=== PATIENT | female | born 1970 | race Caucasian/White ===

== ENCOUNTER 2016-09-30 21:38 | Inpatient (IN) | payer OTHER, MEDICAID ==
[~2016-09-30] VITALS: Ht 154.3 cm; Wt 166.1 kg
[2016-09-30 21:41] VITALS: BP 151/73; PULSE 85; RESP 18; O2SAT 93
--- NOTE | 2016-09-30 23:01 | ED.REPORT ---
HPI-Rash / Abscess Date of Service Sep 30, 2016 ED Provider: Celio Barboza MD The pt is a 45 y/o female w/ a hx of HTN and diabetes presenting to the ED complaining of L leg pain due to cellulitis. There is swelling, redness, and itching which all began in late July. They are also experiencing severe SOB w/ exertion and is unable to sleep supine because they can't breathe. She also describes becoming lightheaded w/ exertion. They report that they were on Bactrim and Keflex for the cellulitis but has not noticed any improvement. The pt was told to get tested for MRSA. They also describe losing 65 pounds of water weight recently while on Lasix and their calves being "4 times" bigger in the past. The pt was born a female but identifies as a male. Nursing Notes Stated Complaint: LEFT LEG CELLULITIS Chief Complaint: Skin Rash/Abscess Nursing Notes Reviewed: Yes Allergies: Coded Allergies: azithromycin (Verified Allergy, Intermediate, emesis, 09/30/16) haloperidol (Verified Allergy, Intermediate, confusion, 09/30/16) General Time Seen by MD: 23:00 Chief Complaint Tender/swollen area (L leg) Hx Obtained From: Patient Arrived By: Walk-in Onset Occurred: More than a week ago... (2 months) Symptom Duration: Since onset Recent Healthcare: No recent hospitalization, Recent doctor visit Similar Sx Previous: Yes Past Medical History Past Medical History HTN Bilat lower extremity cellulitis Diabetes Past Surgical History None reported Social History None reported Other Social History: Good social support Ambulatory Status Independent Review of Systems LLE erythema Respiratory: Reports: Shortness of breath (w/ exertion and while laying supine ) Musculoskeletal: Reports: Extremity pain (L leg), Extremity swelling (L leg) Skin: Reports Itching (L leg) Complete sys rev & neg: except as marked. Neurologic: Reports: Lightheaded (w/ exertion ) Physical Exam Initial Vital Signs Vital Signs (First) Date Time Temp Pulse Resp B/P Pulse Ox O2 Delivery O2 Flow Rate FiO2 09/30/16 21:41 36.7 85 18 151/73 93 Room Air Initial VS: Reviewed, Vital signs normal General/Constitutional: Awake, Alert Appearance / Presentation: Positive: Obese, morbidly Skin: Warm, Dry Lower extremity blistering and weeping, L worse than R Respiratory / Chest: Breath sounds NL Decreased air movement bilaterally w/ no focal changes Mild to moderate SOB Lungs are clear Cardiovascular: Heart rate NL, Regular rhythm, Heart sounds NL Bilat lower extremity edema Neurologic: Oriented X3, Speech NL Neck: Atraumatic, Supple, Full range of motion Abdomen: Atraumatic, Soft, Non-tender Psychiatric: Affect NL, Mood NL Interpretation & Diagnostics Lab Results Interpretation Result Diagram: 10/01/16 0010 10/01/16 0010 Test 09/30/16 23:09 10/01/16 00:10 Hold Purple Top Tube Received (Received) Hold Blue Top Tube Received (Received) Hold [place] Top Tube Received (Received) Hold Pand[place] Top Tube Received (Received) White Blood Count 7.4th/mm3 (3.8-10.1) Red Blood Count 5.12mil/mm3 (3.90-5.20) Hemoglobin 14.1g/dL (12.0-15.6) Hematocrit 45.1% (35.0-46.0) Mean Corpuscular Volume 88.1fL (81-100) Mean Corpuscular Hemoglobin 27.5pg (27.0-35.0) Mean Corpuscular Hemoglobin Concent 31.3% (32.0-37.0) Red Cell Distribution Width 21.8% (12.3-15.4) Platelet Count 173bil/L (150-400) Neutrophils (%) (Auto) 72.2% (40-74) Lymphocytes (%) (Auto) 21.5% (14-46) Monocytes (%) (Auto) 6.1% (4-12) Eosinophils (%) (Auto) 0% (0-5) Basophils (%) (Auto) 0.1% (0-3) Prothrombin Time 10.4sec (8.1-12.5) Prothromb Time International Ratio 0.97ratio Sodium Level 136mEq/L (134-144) Potassium Level 4.7mEq/L (3.5-5.2) Chloride Level 96mEq/L (97-108) Carbon Dioxide Level 25mmol/L (18-29) Blood Urea Nitrogen 14mg/dL (6-24) Creatinine 1.16mg/dL (0.57-1.00) Estimat Glomerular Filtration Rate 73mL/min (>59) Glucose Level 247mg/dL (60-99) Lactic Acid Level 1.4mmol/L (0.4-2.0) Calcium Level 9.1mg/dL (8.5-10.1) Magnesium Level 2.1mg/dL (1.6-2.6) Total Bilirubin 0.6mg/dL (0.0-1.2) Aspartate Amino Transf (AST/SGOT) 37U/L (0-50) Alanine Aminotransferase (ALT/SGPT) 28U/L (0-32) Alkaline Phosphatase 76U/L (25-150) Troponin T 0.010ug/L (0.0-0.011) Pro-B-Type Natriuretic Peptide 73pg/mL (0-130) Total Protein 7.2g/dL (6.4-8.4) Albumin 3.8g/dL (3.4-5.0) Lab Results Interpretation: Elevated nonfasting glucose ECG Interpretation ECG Interpretation: Rate [address] elev, probable normal early repol pattern Time: 00:23 Interpreted by: ED physician X-Ray Chest Interpretation Chest Xray Interpretation: Poor inspiratory effort Quality diminished by body habitus Increased vascular markings/infiltrates consistent w/ CHF View: AP & lat Interpretation / Wet Read by: Wet read ED physician Re-Eval/Medical Decision Med Decision/Clinical Course 45-year-old who is failing outpatient treatment for lower extremity cellulitis ( Septra and Keflex). They have also been short of breath. Previous workup was done at [facility] for blood clots with a positive d-dimer, negative lower extremity ultrasound, and negative chest CT scan with PE protocol. There seems to be clinical evidence of fluid retention but the BNP is not elevated. Chest x -ray shows enlarged heart but is otherwise nonspecific, possibly with some cephalization of flow. IV antibiotic therapy was initiated with vancomycin and Zosyn after cultures. Case was discussed with Dr. Grant and the patient will be admitted to the hospitalist service. Please see inpatient chart for details. Source of Hx: Old records Re-Evaluation/Progress : Time of Eval: 02:29 Re-Evaluation/Progress Note: Pt rechecked. Informed pt of need for admission. Pt understands and agrees with plan for admission. All questions addressed. Consultation : Referral / Consult Name: Aram Grant MD Consulted With: Hospitalist Call Returned at: 02:44 Cloth Baler: Will see patient, Agrees with eval, Agrees with plan, Accepts admit Counseled Regarding: Diagnosis, Lab results, Need for admission Discharge & Departure Impression: Primary Impression: Bilateral lower leg cellulitis Additional Impressions: Dyspnea Dyspnea type: unspecified Qualified Code: R06.00 - Dyspnea, unspecified Failure of outpatient treatment Disposition: ADMITTED TO HOSPITAL Discharge Condition All VS Reviewed: Yes Condition: Stable Referrals: Solitario Pop Attestation Portions of this note were transcribed by Andres Romano. I, Dr. Barboza personally performed the history, physical exam and medical decision-making; I reviewed and confirmed the accuracy of the information in the transcribed note. Signed by : Errol Quinones, 10/01/16 and 0024. copies to: Solitario Pop Howard L MD Sep 30, 2016 23:01 Andres Romano Oct 01, 2016 00:19
[2016-10-01] VITALS (15 sets, daily range): BP systolic 138–179; BP diastolic 61–83; PULSE 70–85; RESP 18–28; O2SAT 87–96
[2016-10-01 00:14] LABS: BASOPHILS % (AUTO) 0.1 % (0-3); EOSINOPHILS % (AUTO) 0 % (0-5); MONOCYTES % (AUTO) 6.1 % (4-12); Mean Corpuscular Hemoglobin 27.5 pg (27.0-35.0); Mean Corpuscular Volume 88.1 fL (81-100); NEUTROPHILS % (AUTO) 72.2 % (40-74); Platelet Count 173 bil/L (150-400)
[2016-10-01 00:17] LABS: INR 0.97 ratio
[2016-10-01 00:38] LABS: TROPONIN T 0.01 ug/L (0.0-0.011)
[2016-10-01 00:42] LABS: Magnesium 2.1 mg/dL (1.6-2.6)
[2016-10-01] MEDS ORDERED: Vancomycin Dose per Pharmacist XX ONE (02:43)
[2016-10-01] MEDS ORDERED: Vancomycin Inj 2,250 MG in 0.9% Sodium Chloride 500 ML IV ONE (02:45)
[2016-10-01] MEDS ORDERED: Piperacillin-Tazo 3.375 Gm Inj 3.375 GM in Dextrose 5% Minibag Plus 50 ML IV ONE (02:50)
[2016-10-01] MEDS ORDERED: Alum-Mag Hydrox-Simeth 30 mL Suspension PO PRN (02:55)
[2016-10-01] MEDS ORDERED: Polyethylene Glycol (PEG) 17 Gm Powder PO PRN (02:55)
--- NOTE | 2016-10-01 04:23 | PCM.HPMED ---
Subjective Date of Service Oct 01, 2016 Primary Provider: Admitting Physician: Primary Care Physician: Casey Attending Physician: Chief Complaint: Bilateral lower extremity "cellulitis" History of Present Illness: Colby Yin is a 45-year-old man with past medical history significant for asthma, edema, hypothyroidism, diabetes mellitus non-insulin using, and morbid obesity who presents due to bilateral lower extremity cellulitis and increasing shortness of breath. Patient states that the symptoms began after an episode of anaphylaxis on August 07 when he ingested honey unknowingly at [employer]. He states ever since this time his immune system has been compromised. He was seen in [facility] and was diagnosed with bilateral cellulitis and placed on Bactrim and Keflex. He has been on these 2 medications for approximately 2 months with no improvement of his lower extremities. He has also been seen by [facility] and has had his lower extremities wrapped along with increasing amounts of Lasix currently on 80 mg a day. He states his legs at this time are the smallest they have been in over a year. He was not warned about the photosensitivity associated with Bactrim and subsequently burned his legs. He returned to [facility] last week and his shortness of breath was worked up with a CTA and lower extremity ultrasound to evaluate for possible PE or DVT. Per the patient these were both negative. His shortness of breath has not responded to his home inhalers and he feels short of breath with any activity. Patient notes associated orthopnea, paroxysmal nocturnal dyspnea, headache and nausea. He has never had a sleep study and last echocardiogram was over 5 years ago. He denies chest pain, dysuria, diarrhea, weight loss, fever, chills, or night sweats. 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 In the ED initial vitals were temperature 36.7, pulse 85, respiratory rate 18 and saturating 93% on room air, and blood pressure 151/73. Patient desaturated down to the 80% when getting out of bed and was placed on 3 L nasal cannula following this episode. Pertinent labs include a creatinine of 1.16 and glucose of 247. CBC was unremarkable and troponin was negative. Patient was started on vancomycin and Zosyn in the ED. Review of Systems: Comprehensive review of systems was conducted with the patient and found to be negative except as noted above in HPI. Allergies Coded Allergies: Honey Bee (Verified Allergy, Severe, Anaphylaxis, 10/01/16) "stop breathing,and quivering" honey (Verified Allergy, Severe, Anaphylaxis, 10/01/16) azithromycin (Verified Allergy, Intermediate, emesis, 09/30/16) haloperidol (Verified Allergy, Intermediate, confusion, 09/30/16) Uncoded Allergies: redwood tree (Allergy, Unknown, Hives, 10/01/16) Home Medications Albuterol 2 other inhalers but patient is unsure the names. Atorvastatin Levothyroxine Testosterone Trazodone Tramadol PMH Asthma Diabetes mellitus type II non-insulin using Hermaphrodite Lymphedema Hypothyroidism Surgical History Right knee arthroscopy Right elbow repair as a child Penectomy Family History Mother - at age 54 from [place], diabetes mellitus Father - diabetes mellitus, [place], black lung from coal mining Social History Hx Alcohol Use: No Hx Substance Use: No Hx Tobacco Use: Yes Smoking Status: Former Smoker (quit in February) Years of Smokin Living Arrangement: with Family with Friends/Roommate Exam Vital Signs Vital Sign - Last Date Time Temp Pulse Resp B/P Pulse Ox O2 Delivery O2 Flow Rate FiO2 10/01/16 03:53 36.4 75 26 143/61 95 Nasal Cannula 2 Exam General: Obese man in mild distress. HEENT: Normocephalic, atraumatic. External ears without defect. Pupils equal, round, and reactive to light and accommodation. Anicteric sclerae, moist conjunctivae, and no lid lag. Oropharynx free of erythema and cobble stoning with moist mucosa. Neck: Supple with full range of motion. JVD difficult to assess due to neck circumference but there appears to be none. Cardiovascular: Distant heart sounds. Regular rate and rhythm with no murmurs, rubs, or gallops appreciated Pulmonary: Clear to auscultation bilaterally with faint wheezes. Increased respiratory effort. Abdomen: Bowel tones present. Obese, soft, nontender, nondistended. Extremities: Right peripheral IV. Peripheral pulses including the radial and posterior tibialis 2 out of 4 equal bilaterally. Skin: Bilateral lower extremity lymphedema with overlying sunburn. There are large bullae present on the anterior and posterior legs left greater than right. Thickening of the skin secondary to chronic venous stasis. Neurological: Cranial nerves grossly intact. Normal muscle strength, tone, and bulk. No known gait impairment. Psychiatric: Normal mood and affect. Alert and oriented to person, place, and time. Lab and Diagnostics Result Diagram: 10/01/16910/01/169 12-lead ECG Normal sinus rhythm Assessment & Plan Colby Yin is a 45-year-old man with past medical history significant for asthma, edema, hypothyroidism, diabetes mellitus non-insulin using, and morbid obesity who presents due to bilateral lower extremity cellulitis and increasing shortness of breath. Acute hypoxic respiratory failure, present on admission, active. Etiology possibly asthma exacerbation versus CHF versus pneumonia. Likely combination of patient's underlying asthma and CHF as patient complains of orthopnea and PND. Although BNP was not elevated. - Patient desaturated down to the 80s when standing from a seated position and has continued to require 2-3 L by nasal cannula. - Patient is not on home oxygen. - Recent workup with negative CTA and lower extremity Doppler performed at [facility] less than 7 days ago. Will not repeat at this time due to impaired renal function. - CXR today of poor quality but heart appears large and there is no distinct consolidation noted. Repeat 2 view ordered. - Echocardiogram ordered for the morning. - Duonebs Q4HWA. - Patient does not appear infectious at this time so no antibiotics will be continued. Chronic bilateral lymphedema complicated by sun exposure, present on admission, active. - Patient has received 2 months of antibiotics with Bactrim and Keflex perspective bilateral cellulitis. While on Bactrim patient had significant sun exposure complicating the appearance of the lower extremities. - Vancomycin and Zosyn given in the ED. Patient does not appear infectious and therefore we will hold on further antibiotics. - Pro calcitonin ordered and pending. - MRSA screen pending. - Wound care consulted. Suspected acute kidney injury, present on admission, active. Etiology likely secondary to increased dose of Lasix and decreased by mouth intake. - BUN 14 and creatinine 1.16. Baseline creatinine unknown. - We will attempt to avoid nephrotoxic medications during this admission. - Repeat BMP in the morning. - Consider IV fluids following echocardiogram. Will encourage oral hydration at this time. Hypothyroidism, present on admission, active. - Restart home levothyroxine when dose is confirmed. Asthma, present on admission, chronic. - Continue home inhalers when they are confirmed. - Duonebs every 6 hours when necessary. Diabetes mellitus type II, present on admission, chronic. - Hemoglobin A1c pending. - Patient on no medications currently. - Low-dose correctional scale. PRN Medications - Acetaminophen as needed for mild pain/fever/headache - Bowel regimen as needed - Antiemetic as needed Patient is admitted under observation status with expected length of stay less than 2 midnights due to severity of presenting symptoms, risk of adverse event, and complexity of treatment plan. Pain Evaluation: Adequate Pain Control GI Prophylaxis: Not indicated VTE Prophylaxis: Sub-Q Heparin (Unfractionated) Resuscitation Status: CPR: Attempt Resuscitation Attending Statement The patient was seen and examined together with Dr. Mak on 10/01 and I agree with the history, exam and plan as outlined in the note above. NATALIA MAK DO Oct 01, 2016 04:23 Aram Grant MD Oct 01, 2016 06:51
[2016-10-01] MEDS: Ondansetron 2 mg/mL 2 mL Inj IVPUSH PRN (04:55)
[2016-10-01] MEDS: Heparin 5,000 Unit/mL Inj SUBQ SCH ×4 (04:56→23:43)
[2016-10-01] MEDS ORDERED: Glucose 40% Oral Gel 15 Gm Tube PO PRN (05:05)
--- NOTE | 2016-10-01 05:10 | NUR ---
Admission Note Pt admitted to [facility] from ER on stretcher at 0415, alert and orientedx3, c/o pain 10/10 at left leg, 7/10 at right leg, Tylenol given, Dr. Mak paged for stronger pain med. Very SOB with activities, desat to 70s with ambulation,SPO2 around 95% on O3 3l after resting in bed for a few minutes.Cough intermittently, occasional brown sputum per pt. Nausea, no vomitus, Zofran given, symptoms improved. BP147/67 HR83 RR24. Coarse lung sounds bilaterally, obese, decreased lung sounds bilaterally, Tele applied SR 78 per carpet technician. No murmur, HR regular. Abdomen soft, non tender, BT hypoactive. Generalized dark redness, nonpitting edema, pain, skin warm to touch at bilateral LEs, left worse than right, skin breakdown,no drainage noted, Wound culture from left LE and nasal MRSA sent.Redness at abdominal folds and groins, bilateral posterior upper thigh. Vanco running. Pt orient to call light. MARBLE MACHINE OPERATOR monitoring applied. Care ongoing.
[2016-10-01] MEDS: Albuterol-Ipratropium 3 mL Inhalation Solution NEB SCH ×5 (05:22→20:17)
--- NOTE | 2016-10-01 06:41 | NUR ---
Home meds list not done due to pt unable to remember them, pt states she will let vincent bring homes meds or list to the hospital today.
[2016-10-01 06:53] LABS: APPEARANCE,URINE CLOUDY (CLEAR,HAZY); COLOR,URINE YELLOW (YELLOW); OCCULT BLOOD,URINE TRACE (NEGATIVE); PH,URINE 5.5 (5.0-8.0); UROBILINOGEN,URINE NORMAL (NORMAL)
--- NOTE | 2016-10-01 07:47 | DRSVH ---
PROCEDURE: X-RAY CHEST ONE VIEW, PORTABLE ([id number]) INDICATIONS: dyspnea TECHNIQUE: One view of the chest was acquired. COMPARISON: None. FINDINGS: Surgical changes and devices: None. Lungs and pleura: No pleural effusions or pneumothorax. Lungs are clear. There is mild cephalization of pulmonary vascular suspicious for CHF. Mediastinum: Mediastinal contours appear normal. Heart size is enlarged. Bones and chest wall: No suspicious bony lesions. Overlying soft tissues appear unremarkable. IMPRESSION: 1. Mild cephalization of pulmonary vascular suspicious for CHF. 2. Cardiomegaly. Dictated by: Keri Urias MD, PhD on 10/01/2016 at 7:44 Approved by: Keri Urias MD, PhD on 10/01/2016 at 7:45
[2016-10-01] MEDS: Insulin LISPRO 300 Unit/3 mL Inj SUBQ SCH ×4 (08:08→22:00)
--- NOTE | 2016-10-01 14:02 | NUR ---
HTN B/p 179/67, HR 85, RR 24. Pt reports GREGORIO continues. MD aware. No new orders at this time. Family at bedside visiting with pt. Will continue to monitor.
--- NOTE | 2016-10-01 14:18 | DRSVH ---
PROCEDURE: X-RAY CHEST, TWO VIEWS ([id number]) INDICATIONS: SOB TECHNIQUE: 2 views of the chest were acquired. COMPARISON: [facility], CR, XR CHEST 1VW (PORTABLE), 09/30/2016, 23:50. None. FINDINGS: Surgical changes and devices: None. Lungs and pleura: No pleural effusions or pneumothorax. Interstitial prominence and cephalization of pulmonary vasculature with perihilar indistinctness compatible CHF. Mediastinum: Mediastinal contours are normal. Heart size is mildly enlarged. Bones and chest wall: No suspicious bony abnormalities. Soft tissues appear unremarkable. IMPRESSION: Findings suspicious for CHF. Dictated by: Keri Urias MD, PhD on 10/01/2016 at 14:15 Approved by: Keri Urias MD, PhD on 10/01/2016 at 14:16
--- NOTE | 2016-10-01 14:58 | NUR ---
Belongings Pt requesting secure belongings envelope from the [facility], family is at bedside and able to take belongings home. Envelope #[id number] retrieved sealed and intact from [facility] in ED. Call light in reach, will continue to monitor. Addendum: 10/01/16 at 1503 by ARELY CACERES RN Above envelope number incorrect, Correct number - [id number].
--- NOTE | 2016-10-01 15:03 | NUR ---
spiritual care: pt request visit attempt; pt in personal care, will plan to follow as needed.
[2016-10-01] MEDS ORDERED: SALM50DI INH (15:10)
[2016-10-01] MEDS ORDERED: ATOR80TA PO (15:10)
[2016-10-01] MEDS ORDERED: EPIN0.3P17 IJ (15:10)
[2016-10-01] MEDS ORDERED: LEVO300T5 PO (15:10)
[2016-10-01] MEDS ORDERED: ALBU2.5V4 INHALATION (15:10)
[2016-10-01] MEDS ORDERED: IBUP800T28 PO (15:10)
[2016-10-01] MEDS ORDERED: MONT10TA23 PO (15:10)
[2016-10-01] MEDS ORDERED: ALBU18HF INH (15:10)
[2016-10-01] MEDS ORDERED: LOPE2CAP PO (15:10)
[2016-10-01] MEDS ORDERED: FERR-83 PO (15:10)
[2016-10-01] MEDS ORDERED: OMEP40CA36 PO (15:10)
[2016-10-01] MEDS ORDERED: testosterone INJ (15:10)
[2016-10-01] MEDS ORDERED: MOME13HF2 IH (15:10)
[2016-10-01] MEDS ORDERED: FLUO20CA25 PO (15:10)
[2016-10-01] MEDS ORDERED: FURO40TA4 PO (15:10)
[2016-10-01] MEDS ORDERED: BENZ100C8 PO (15:10)
[2016-10-01] MEDS ORDERED: FEXO-106 PO (15:10)
[2016-10-01] MEDS ORDERED: ASPI-973 PO (15:10)
[2016-10-01] MEDS ORDERED: MULT-666 PO (15:10)
--- NOTE | 2016-10-01 15:13 | NUR ---
Social Work Note - Initial assessment Thai Yin is a 45 yr old admitted for Dyspnea, Leg cellulitis. EMR reviewed: Pt has MARK DAVID, his PCP is Dr Pop at [facility]. No DPOA - OPTICAL GLASS INSPECTOR provided paperwork. No VA or LTC insurance. Readmit score is not available. See attached CM initial assessment. OPTICAL GLASS INSPECTOR met with pt - introduced D/C planning and explained SW role. Pt lives with his SO in [place] and is independent at baseline. He uses a walker at times, has a shower chair. Pt states that he plans to d/c home tomorrow with family. He has good supports - states that they will help with medications and assistance at home if needed. OPTICAL GLASS INSPECTOR counseled on DPOA - provided paperwork. OPTICAL GLASS INSPECTOR provided D/C planning checklist and left number on white board. No other needs identified. Plan: Home with family in [place]. No needs identified. LG Pete Addendum: 10/01/16 at 1517 by EARL PORRAS SS Amended: Links added.
[2016-10-01] MEDS ORDERED: Albuterol 2.5 mg/3 mL Inhalation Solution NEB PRN (16:00)
[2016-10-01] MEDS: Fluticasone-Salmeterol 100-50 Inhaler INHALATION SCH (20:08)
[2016-10-01] MEDS ORDERED: Salmeterol 50 mcg/Puff 28 Inhalation Diskus INHALATION SCH (20:30)
[2016-10-02] VITALS (10 sets, daily range): BP systolic 136–145; BP diastolic 61–72; PULSE 68–96; RESP 18–24; O2SAT 91–95
[2016-10-02 05:49] LABS: Mean Corpuscular Hemoglobin 27.4 pg (27.0-35.0); Mean Corpuscular Volume 86.4 fL (81-100)
--- NOTE | 2016-10-02 06:36 | NUR ---
BG/panic attacks/sleep BG was 209 before bed. RN was about to draw up 1 unit of insulin when pt pressed call button stating he is feeling shaky. Withheld insulin and provided pt with a snack. Pt continually waking up and stating he cannot breathe at night, maintaining o2 sats in high 90s as per CPOX. Upon awakening about 10-12 times pt has sweats and uses call button every couple of minutes so that "he has someone to talk to" and "to calm him down". States that his partner and him are for the very first time ever and that this is giving him very bad panic attacks. Pt requested Trazadone to sleep which was not very effective.
[2016-10-02] MEDS: Albuterol-Ipratropium 3 mL Inhalation Solution NEB SCH ×4 (07:23→20:20)
[2016-10-02] MEDS: Heparin 5,000 Unit/mL Inj SUBQ SCH ×2 (07:57→17:53)
[2016-10-02] MEDS: Insulin LISPRO 300 Unit/3 mL Inj SUBQ SCH ×2 (07:59→11:54)
[2016-10-02] MEDS: Fluticasone-Salmeterol 100-50 Inhaler INHALATION SCH ×2 (09:42→21:19)
[2016-10-02] MEDS: Pantoprazole 40 mg ER24 Tablet PO SCH (09:42)
[2016-10-02] MEDS: Insulin LISPRO Medium-Dose Scale SUBQ SCH ×3 (11:57→21:21)
--- NOTE | 2016-10-02 15:40 | PCM.PNMED ---
Subjective Date of Service Oct 02, 2016 Subjective Denies any new issues/complaints. Nursing noted patient to be desaturating to mid 80's with minimal movement. He says is not on home O2 but is wondering if he should be on home O2 because of frequent SOB at home as well. Exam Vital Signs Vital Sign - Last Date Time Temp Pulse Resp B/P Pulse Ox O2 Delivery O2 Flow Rate FiO2 10/02/16 14:40 36.6 75 22 144/62 91 Nasal Cannula 2.00 Intake and Output 10/01/16 10/01/16 10/02/16 Cumulative From/Thru 15:00 23:00 07:00 09/30/16 21:41 - 10/02/16 06:25 Intake Total 1410 ml 672 ml 2732 ml Output Total 300 ml 550 ml 851 ml Balance 1110 ml 122 ml 1881 ml Intake Oral 1410 ml 672 ml 2232 ml IV Total 500 ml Output Urine Total 300 ml 550 ml 850 ml Urine/Stool Mix 1 ml # Voids 1 2 # Bowel Movements 1 2 Exam General: Obese man in NAD HEENT: Normocephalic, atraumatic. Anicteric sclerae, moist conjunctivae, and no lid lag. Oropharynx free of erythema and cobble stoning with moist mucosa. Neck: Supple with full range of motion. Cardiovascular: Distant heart sounds. Regular rate and rhythm Pulmonary: Clear to auscultation bilaterally with faint wheezes. Increased respiratory effort. Abdomen: Bowel tones present. Obese, soft, nontender, nondistended. Extremities: Peripheral pulses including posterior tibialis 2 out of 4 equal bilaterally. Skin: Bilateral lower extremity lymphedema with overlying sunburn. There are large bullae present on the anterior and posterior legs left greater than right. Thickening of the skin consistent with chronic venous stasis. Neurological: Cranial nerves grossly intact. Normal muscle strength, tone, and bulk. Psychiatric: Normal mood and affect. Alert and oriented to person, place, and time. IVs and Medications Medications Reviewed: Medications were reviewed in detail Lab and Diagnostics Result Diagram: 10/02/16 0500 10/02/16 0500 12-lead ECG Normal sinus rhythm Assessment & Plan 45-year-old man with past medical history significant for asthma, edema, hypothyroidism, diabetes mellitus non-insulin using, and morbid obesity who presents with concern of bilateral lower extremity cellulitis and increasing shortness of breath. # Acute hypoxic respiratory failure, present on admission, active. - Unclear exact etiology at this time. Likely combination of patient's underlying asthma and CHF as patient complains of orthopnea and PND. Although BNP was not elevated. - Continues to desaturate down to the 80s when standing from a seated position and has continued to require 2-3 L by nasal cannula. - Patient is not on home oxygen. - Recent workup with negative CTA and lower extremity Doppler performed at [facility] about 7 days ago. Will not repeat at this time due to impaired renal function. - CXR "Findings suspicious for CHF" - Followup pending Echocardiogram - Duonebs Q4HWA. - Patient does not appear infectious at this time so no antibiotics will be continued. - Start IV Lasix - Followup I/O # Chronic bilateral lymphedema complicated by sun exposure, present on admission , active. - Patient has received 2 months of antibiotics with Bactrim and Keflex as outpatient for presumed bilateral cellulitis. - While on Bactrim patient had significant sun exposure complicating the appearance of the lower extremities. - Vancomycin and Zosyn given in the ED. Patient does not appear infectious and therefore we will hold on further antibiotics. - MRSA screen pending. - Wound care consulted. # Suspected acute kidney injury, present on admission, active. - Baseline creatinine unknown. - We will attempt to avoid nephrotoxic medications during this admission. - Repeat BMP in the morning. - Followup closely while starting IV Lasix # Hypothyroidism, present on admission, active. - Home levothyroxine # Asthma, present on admission, chronic. - Continue home inhalers - Duonebs every 6 hours when necessary. # Diabetes mellitus type II, present on admission, chronic. - Hemoglobin A1c pending. - Patient on no medications currently. - Low-dose correctional scale. # Reported history of being transgender. Prefers to be referred to as he even though his parents registered him as a she when he was borne. Dispo: 2-3 days pending improved respiratory status and echo findings. GI Prophylaxis: Not indicated VTE Prophylaxis: Sub-Q Heparin (Unfractionated) VTE Mechanical Devices: Venous Foot Pump Resuscitation Status: CPR: Attempt Resuscitation Marlo Martines Oct 02, 2016 15:40 Resuscitation Status: CPR: Attempt Resuscitation Marlo Martines Oct 02, 2016 15:40
--- NOTE | 2016-10-02 17:26 | NUR ---
spiritual care: pt request conversational visit. pt shared his medical progress, hopeful tone. Pt also reflected on personal qualities luna as they relate to his yarsanism sita--intent for prayer, spiritual growth, reliability in relationships and self care. Pt shared his recent ambivalence with hospital medications as he explained his need to balance ability to sleep with managing deep sleep panic or other ptsd affects. Pt expressive about support from SO and also his desire to care for her. pt had phone call that he wanted to take, spiritual care to follow as needed.
--- NOTE | 2016-10-02 18:29 | NUR ---
Activity/SOB Pt has been up, amb to BR and back with SBA. He does get extremely SOB, desat's into the mid-80's. Per pt, "this has been happening since I was born, nothing is going to change it." Pt states sometimes his 02 will drop as low as mid 70's with exertion. He denies any home 02. Enc to do slow, deep breaths to bring 02 levels up into the high 80's, low 90's. Pt remains on 2L via NC for comfort. One req for PRN analgesic this AM, nothing more throughout this shift. Bed in lowest, locked position and call light in reach.
[2016-10-02] MEDS: Furosemide 10 mg/mL 4 mL Inj IVPUSH SCH (21:20)
--- NOTE | 2016-10-02 23:53 | PROCED ---
[address] [address] PROCEDURE NOTE PATIENT: LANDY ACOSTA : 1970 MR#: [id number] ADMIT: 10/01/2016 JOB ID: [id number] DATE OF SERVICE: 10/02/2016 POSTOPERATIVE DIAGNOSIS(ES): PREOPERATIVE DIAGNOSIS(ES): SURGEON: PROCEDURE: SensiLase laser Doppler report INDICATION: Lymphedema. FINDINGS: Skin perfusion pressure from the right ankle medial was 69, right calf medial was 71. Left ankle medial was 76, left ankle lateral 49, left medial was 75. The skin perfusion pressures seen in this patient are adequate for wound healing from an arterial standpoint and this patient can sustain compressive therapy of normal amounts.
[2016-10-03] VITALS (10 sets, daily range): BP systolic 158–187; BP diastolic 63–81; PULSE 74–108; RESP 18–28; O2SAT 90–95
[2016-10-03] MEDS: Heparin 5,000 Unit/mL Inj SUBQ SCH ×3 (00:02→16:39)
[2016-10-03 06:11] LABS: BASOPHILS % (AUTO) 0 % (0-3); EOSINOPHILS % (AUTO) 0 % (0-5); Mean Corpuscular Hemoglobin 27.4 pg (27.0-35.0); Mean Corpuscular Volume 87.6 fL (81-100); NEUTROPHILS % (AUTO) 72.1 % (40-74); Platelet Count 156 bil/L (150-400)
--- NOTE | 2016-10-03 06:16 | NUR ---
O2 sats/pain: Pt was able to ambulate self to BR without O2, no SOB noted, tolerated well. Pt did use 2L O2 while in bed during the night. C/o leg pain x1, medication administered; requested Flexeril for muscle spasms, ordered and administered; effective. Pt slept off/on throughout the night, pleasant and cooperative with care.
[2016-10-03 07:03] LABS: Magnesium 1.9 mg/dL (1.6-2.6); Phosphorus 4.2 mg/dL (2.5-4.9)
--- NOTE | 2016-10-03 07:56 | DRSVH ---
[facility] [address] [place] [address] Echocardiogram Report Name: LANDY ACOTSA FStudy Date: 10/02/2016 Height: 61 in Hospital Exam Location: [facility] Weight: 366 lb Gender: Female BSA: 2.4 m2 : 1970 Age: 45 yrs BP: 136/72 mm Hg Reason For Study: SOB Ordering Physician: Zuleyka GatesistPerformed By: Berlin Draper Referring Physician: NATALIA DOUGLAS Interpretation Summary The study quality was technically difficult. A contrast injection of Definity was performed to improve assessment of LV function. The ejection fraction is estimated to be 60-65%. There is mild tricuspid regurgitation. The right ventricular systolic pressure is estimated at 46 mmHg assuming a right atrial pressure of 8 mm Hg. Procedure: A two-dimensional transthoracic echocardiogram with color flow and Doppler was performed. The study quality was technically difficult. A contrast injection of Definity was performed to improve assessment of LV function. There is no prior echocardiogram noted for this patient. The patient was in normal sinus rhythm during the exam. Left Ventricle: The left ventricle is grossly normal size. Left ventricular wall thickness is mildly increased. The ejection fraction is estimated to be 60-65%. There are no focal wall motion abnormalities. Right Ventricle: The right ventricle grossly appears normal in size with probable normal systolic function. Atria: The left atrium grossly appears normal in size. The right atrium grossly appears normal in size. There is no Doppler evidence for an atrial septal defect. Mitral Valve: The mitral valve is grossly normal. There is no mitral regurgitation noted. Aortic Valve: The aortic valve is not well visualized. The aortic valve mean gradient is 11 mmHg. The peak aortic velocity is 2.3 m/sec. No aortic regurgitation is present. Tricuspid Valve: The tricuspid valve is not well visualized, but is grossly normal. There is mild tricuspid regurgitation. The right ventricular systolic pressure is estimated at 46 mmHg assuming a right atrial pressure of 8 mm Hg. Pulmonic Valve: The pulmonic valve is not well seen, but is grossly normal. There is a trace or physiologic amount of pulmonic regurgitation. Great Vessels: The aortic root is normal size. The dimensions of the ascending aorta are normal. The pulmonary artery is not well visualized, but is probably normal size. The IVC is dilated (diameter is greater than 2.1 cm) yet it collapses greater than 50% with a sniff. This suggests a right atrial pressure of 8 mm Hg. Pericardium/ Pleura There is an anterior echo-free space consistent with a fat pad. There is no pleural effusion. MMode/2D Measurements & Calculations LVIDd: 4.9 cm IVC diam LVOT diam: 2.0 cm LV manrique. diameter/BSA LVIDs: 2.2 cm : 2.4 cm Ao root diam (cm/m^2): 2.0 FS: 54.8 % IVSd: 1.2 cm asc Aorta Diam LVPWd: 1.2 cm Ao Arch Diam (Prox Trans): 2.5 cm LV sys. diameter/BSA (cm/m^2): 0.91 Doppler Measurements & Calculations Ao V2 max MV E max hany MV E/A: 1.3 TR max hany : 228.5 cm/sec : 134.0 cm/sec Med Peak E' Hany : 307.3 cm/sec Ao max P.9 mmHg MV A max hany TR max PG Ao mean P.4 mmHg : 104.1 cm/sec E/E' med: 14.8 : 37.9 mmHg LVOT Max Hany Lat Peak E' Hany PA V2 max : 131.8 cm/sec : 121.8 cm/sec E/E' lat: 11.4 PA mean PG ABA(I,D): 2.0 cm E/e' average : 2.7 mmHg sev ratio: 0.66 MV dec time: 0.27 sec Ao V2 mean LV V1 max PG PA V2 mean : 159.8 cm/sec : 77.3 cm/sec Ao V2 VTI: 39.9 cmLV V1 VTI: 26.2 cmPA pr(Accel) : 51.6 mmHg ABA(V,D): 1.8 cm2 ABA indexed to BSA (cm^2/m^2): 0.82 Electronically signed by: Brent Woodard on Reading Physician:10/02/2016 12:10 PM
[2016-10-03] MEDS: Albuterol-Ipratropium 3 mL Inhalation Solution NEB SCH ×4 (08:35→21:34)
[2016-10-03] MEDS: Fluticasone-Salmeterol 100-50 Inhaler INHALATION SCH ×2 (09:24→20:22)
[2016-10-03] MEDS: Pantoprazole 40 mg ER24 Tablet PO SCH (09:25)
[2016-10-03] MEDS: Insulin LISPRO Medium-Dose Scale SUBQ SCH ×4 (09:28→22:09)
[2016-10-03] MEDS: Furosemide 10 mg/mL 4 mL Inj IVPUSH SCH ×2 (09:29→20:21)
[2016-10-03] MEDS: Ondansetron 2 mg/mL 2 mL Inj IVPUSH PRN ×2 (10:52→18:12)
--- NOTE | 2016-10-03 11:34 | NUR ---
Testosterone Pt req his testosterone injection. Verified with his home pharmacy that dose is 200mg/ml Q2 weeks. cookpaged with above. Addendum: 10/03/16 at 1304 by NIKITA TAVERAS RN ordered medication
--- NOTE | 2016-10-03 11:49 | NUR ---
Tobacco chew Pt noted to have chewing tobacco at bedside and using it. Pt educated re: tobacco policy/tobacco free policy. Pt became upset, stated it was need for his anxiety and if denied use, he would leave AMA. vegetable packer in room to provide more education, pt reports understanding although he doesn't agree and agreed to hand over can of tobacco which was locked up in drawer outside of room. Pt states he will stay for now.
--- NOTE | 2016-10-03 14:04 | PCM.PNMED ---
Subjective Date of Service Oct 03, 2016 Subjective Patient continues to improve on IV diuresis. Afebrile. Exam Vital Signs Vital Sign - Last Date Time Temp Pulse Resp B/P Pulse Ox O2 Delivery O2 Flow Rate FiO2 10/03/16 13:33 98 Nasal Cannula 4.00 108 10/03/16 13:00 18 93 10/03/16 10:15 36.4 185/63 Intake and Output 10/02/16 10/02/16 10/03/16 Cumulative From/Thru 15:00 23:00 07:00 09/30/16 21:41 - 10/03/16 06:20 Intake Total 1346 ml 400 ml 4478 ml Output Total 1500 ml 1050 ml 3401 ml Balance -154 ml -650 ml 1077 ml Intake Oral 1346 ml 400 ml 3978 ml IV Total 500 ml Output Urine Total 1500 ml 1050 ml 3400 ml Urine/Stool Mix 1 ml # Voids 2 # Bowel Movements 1 3 Exam General: Obese man in NAD HEENT: Normocephalic, atraumatic. Anicteric sclerae, moist conjunctivae, and no lid lag. Oropharynx free of erythema and cobble stoning with moist mucosa. Neck: Supple with full range of motion. Cardiovascular: Distant heart sounds. Regular rate and rhythm Pulmonary: Clear to auscultation bilaterally with faint wheezes. Increased respiratory effort. Abdomen: Bowel tones present. Obese, soft, nontender, nondistended. Extremities: Peripheral pulses including posterior tibialis 2 out of 4 equal bilaterally. Skin: Bilateral lower extremity lymphedema with overlying sunburn. There are large bullae present on the anterior and posterior legs left greater than right. Thickening of the skin consistent with chronic venous stasis. Neurological: Cranial nerves grossly intact. Normal muscle strength, tone, and bulk. Psychiatric: Normal mood and affect. Alert and oriented to person, place, and time. IVs and Medications Medications Reviewed: Medications were reviewed in detail Lab and Diagnostics Result Diagram: 10/03/1651910/03/16519 12-lead ECG Normal sinus rhythm Cardiac Echo Impressions nterpretation Summary The study quality was technically difficult. A contrast injection of Definity was performed to improve assessment of LV function. The ejection fraction is estimated to be 60-65%. There is mild tricuspid regurgitation. The right ventricular systolic pressure is estimated at 46 mmHg assuming a right atrial pressure of 8 mm Hg. Assessment & Plan 45-year-old man with past medical history significant for asthma, edema, hypothyroidism, diabetes mellitus non-insulin using, and morbid obesity who presents with concern of bilateral lower extremity cellulitis and increasing shortness of breath. # Acute hypoxic respiratory failure, present on admission, active. - Unclear exact etiology at this time. Likely combination of patient's underlying asthma and diastolic CHF as patient complains of orthopnea and PND. Although BNP was not elevated. - Continues to desaturate down to the 80s when standing from a seated position and has continued to require 2-3 L by nasal cannula. - Patient is not on home oxygen. - Recent workup with negative CTA and lower extremity Doppler performed at [facility] about 7 days ago. Will not repeat at this time due to impaired renal function. D-dimer 1.17 noted - CXR "Findings suspicious for CHF" - Echocardiogram preserved ejection fraction.Left ventricular wall thickness is mildly increased - Duonebs Q4HWA. - Patient does not appear infectious at this time so no antibiotics will be continued. - Continue IV Lasix 40 mg IV twice a day - Followup I/O -arrange home oxygen #Suspected diastolic heart failure -- Continue IV Lasix 40 mg IV twice a day - Followup I/O # Chronic bilateral lymphedema complicated by sun exposure, present on admission , active. - Patient has received 2 months of antibiotics with Bactrim and Keflex as outpatient for presumed bilateral cellulitis. - While on Bactrim patient had significant sun exposure complicating the appearance of the lower extremities. - Vancomycin and Zosyn given in the ED. Patient does not appear infectious and therefore we will hold on further antibiotics. - MRSA screen negative - Wound care consulted. # Diabetes mellitus type II, present on admission, chronic. Uncontrolled - Hemoglobin A1c 8.1 - Patient on no medications currently. - Low-dose correctional scale for now. We will discharge on oral agents # Suspected acute kidney injury, present on admission, improving - Baseline creatinine unknown. - We will attempt to avoid nephrotoxic medications during this admission. # Hypothyroidism, present on admission, active. - Home levothyroxine # Asthma, present on admission, chronic. - Continue home inhalers - Duonebs every 6 hours when necessary. # Reported history of being transgender. Prefers to be referred to as he even though his parents registered him as a she when he was borne. Dispo: 1-2 days pending improved respiratory status GI Prophylaxis: Not indicated VTE Prophylaxis: Sub-Q Heparin (Unfractionated) VTE Mechanical Devices: Venous Foot Pump Resuscitation Status: CPR: Attempt Resuscitation Coy Herbert MD Oct 03, 2016 14:04 Coy Herbert MD Oct 03, 2016 14:04
[2016-10-04] MEDS: Heparin 5,000 Unit/mL Inj SUBQ SCH ×2 (00:30→09:25)
[2016-10-04 05:20] VITALS: BP 180/93; PULSE 91; RESP 26; O2SAT 98
[2016-10-04 05:53] LABS: BASOPHILS % (AUTO) 0.2 % (0-3); EOSINOPHILS % (AUTO) 0 % (0-5); MONOCYTES % (AUTO) 6.9 % (4-12); Mean Corpuscular Hemoglobin 27.3 pg (27.0-35.0); Mean Corpuscular Volume 88.6 fL (81-100); NEUTROPHILS % (AUTO) 73.9 % (40-74); Platelet Count 169 bil/L (150-400)
[2016-10-04 05:56] VITALS: PULSE 80
[2016-10-04 07:30] VITALS: PULSE 80; RESP 18; O2SAT 97
[2016-10-04] MEDS: Albuterol-Ipratropium 3 mL Inhalation Solution NEB SCH ×2 (07:33→11:32)
[2016-10-04 08:00] VITALS: PULSE 81
[2016-10-04 08:32] VITALS: BP 150/75; PULSE 82; RESP 24; O2SAT 97
[2016-10-04] MEDS: Fluticasone-Salmeterol 100-50 Inhaler INHALATION SCH (09:16)
[2016-10-04] MEDS: Pantoprazole 40 mg ER24 Tablet PO SCH (09:18)
[2016-10-04] MEDS: Insulin LISPRO Medium-Dose Scale SUBQ SCH (09:21)
[2016-10-04] MEDS: Furosemide 10 mg/mL 4 mL Inj IVPUSH SCH (09:21)
[2016-10-04] MEDS: Ondansetron 2 mg/mL 2 mL Inj IVPUSH PRN (09:21)
--- NOTE | 2016-10-04 10:36 | PCM.DIMED ---
Discharge Instructions Date of Service Oct 04, 2016 Dates of Hospitalization Oct 01, 2016 at 04:12 Discharge Diagnosis Discharge Diagnosis # Acute hypoxic respiratory failure, present on admission, active. - Likely combination of patient's underlying asthma and diastolic CHF #Suspected diastolic heart failure # Chronic bilateral lymphedema complicated by sun exposure, present on admission , active. # Diabetes mellitus type II, present on admission, chronic. Uncontrolled # Suspected acute kidney injury, present on admission, improving # Hypothyroidism, present on admission, active. # Asthma, present on admission, chronic. # Reported history of being transgender. Diet Discharge Diet: Low fat, Low Sodium, Diabetic Activity Discharge Activity: Limited until seen by PCP Call your provider Call your provider for: Fever or Chills, Shortness of breath, Bleeding, Chest pain, Vomitting, Excessive diarrhea, Weakness (unilateral) Patient Instructions Patient Instructions You were hospitalized due to acute hypoxemic respiratory failure due to diastolic heart failure and asthma exacerbation. You have been treated with nebulizer treatment and diuretics/Lasix. Please continue Lasix 20 mg daily. Please continue nebulizers as prescribed. Your diabetes is uncontrolled. I have started you on metformin 500 mg by mouth twice a day. This may be increased to 1000 mg by mouth twice a day by PCP in few weeks if tolerated. I also started you on glyburide 2.5 mg mg twice daily. Please check your blood glucose 3 times a day and discus with PCP for further adjustment. Please check your BP daily. walker Prescribed for deconditioning and unstable gait. Follow-up Provider: [facility] Follow-up with PCP in: 1 week Coy Herbert MD Oct 04, 2016 10:36
[2016-10-04] MEDS ORDERED: NEBU-145 MC (10:39)
[2016-10-04] MEDS ORDERED: OXYC5TAB72 PO (10:39)
[2016-10-04] MEDS ORDERED: METF500T PO (10:54)
[2016-10-04] MEDS ORDERED: GLYB2.5T4 PO (10:54)
[2016-10-04] MEDS ORDERED: FLUO20CA25 PO (10:54)
[2016-10-04] MEDS ORDERED: BLOO-1504 MC (10:55)
[2016-10-04] MEDS ORDERED: WALK1EAC55 MC (10:56)
--- NOTE | 2016-10-04 11:08 | NUR ---
Social Work: Discharge / Multidisciplinary Rounds Data: Pt is on day 3 of hospitalization. EMR reviewed. Pt discussed in rounds, MD states pt likely to d/c today. D/C orders are in. Pt is capable of self care. No d/c planning needs anticipated at this time. GLOBAL PRESIDENT will continue to follow if needs arise. Assessment: Pt who is independent at baseline. Plan: Pt will d/c home via POV today. Pt is capable of self care. No d/c planning needs anticipated at this time. GLOBAL PRESIDENT will continue to follow if needs arise. ADARSH Roberts
[2016-10-04 11:30] VITALS: PULSE 82; RESP 22; O2SAT 97
--- NOTE | 2016-10-04 13:11 | NUR ---
DISCHARGE Pt dc'd home at 1300, off unit in w/c accompanied by CONTRACT ACCOUNTANT and pt's . Pt A&Ox4, denied any pain and in no apparent distress. IV dc'd intact and all belongings returned including cell phone/painter and body work. All instructions re: medications, prescriptions, diet, activity and follow up reviewed extensively with pt and pt's , who report understanding. Pt left with Amaury Jones at 2L.
--- NOTE | 2016-10-04 13:41 | NUR ---
Called the residency clinic to schedule a PCP per EDGE BASTER, but the patient was put on a wait list. He is scheduled to have a follow up with Dr. Carlin at 9:10 am on the 09 of October. Updated EDGE BASTER
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
--- NOTE | 2016-10-08 14:45 | NUR ---
Faxed clinicals and facesheet to Lizette @ [facility] [phone], both discharge instructions and summary indicate walker is needed for discharge. [phone] Updated DEAN
== END 2016-10-04 13:02 | disposition home or self-care (01) | DRG 189 ==
LOC: SED 21:38 → MPC 10-01 04:12 → INTOOBSV 10-01 04:12 → OBSVTOIN 10-01 04:12
PROVIDERS: ADMIT Hospitalist; ATTEND Internal Medicine
DX: J96.01 Acute respiratory failure with hypoxia (principal); N17.9 Acute kidney failure, unspecified; I50.30 Unspecified diastolic (congestive) heart failure; L03.115 Cellulitis of right lower limb; E11.65 Type 2 diabetes mellitus with hyperglycemia; J45.901 Unspecified asthma with (acute) exacerbation; L03.116 Cellulitis of left lower limb; E66.01 Morbid (severe) obesity due to excess calories; Z87.891 Personal history of nicotine dependence; I89.0 Lymphedema, not elsewhere classified; E03.9 Hypothyroidism, unspecified; F64.8 Other gender identity disorders

== ENCOUNTER 2016-10-15 21:15 | Inpatient (IN) | payer OTHER, MEDICAID ==
[~2016-10-15] VITALS: Ht 154.9 cm; Wt 175.0 kg
[~2016-10-15 21:15] MED LIST: ALBU18HF INH; ALBU2.5V4 INHALATION; ASPI-973 PO; ATOR80TA PO; BENZ100C8 PO; BLOO-1504 MC; EPIN0.3P17 IJ; FERR-83 PO; FEXO-106 PO; FLUO20CA25 PO; FURO40TA4 PO; GLYB2.5T4 PO; IBUP800T28 PO; LEVO300T5 PO; LOPE2CAP PO; METF500T PO; MOME13HF2 IH; MONT10TA23 PO; MULT-666 PO; NEBU-145 MC; OMEP40CA36 PO; OXYC5TAB72 PO; SALM50DI INH; WALK1EAC55 MC; testosterone TOPICAL
[2016-10-15 21:19] VITALS: BP 119/67; PULSE 86; RESP 20; O2SAT 93
--- NOTE | 2016-10-15 21:57 | ED.REPORT ---
HPI-Extremity Problem Lower Date of Service Oct 15, 2016 ED Provider: Rd Quintana MD Pt is a 46 year old transgender that refers to self as male with a history of HTN and DM who presents to the ED complaining worsening bilateral leg swelling onset 2 weeks ago. Pt c/o associated bilateral leg pain, right leg numbness, right leg burning sensation, inability to walk secondary to the swelling, abdominal erythema, and SOB. The pt denies fever. Pt reports a cough, but states that it is chronic. Per pt, the symptoms were improved at discharge from [facility] on 10/04/16, however have gradually worsened since. The pt presented to a follow up doctor since discharge and was prescribed Gabapentin. Pt also reports that Lasix prescription was decreased from 40 mg to 20 mg due to avoid kidney damage. The pt was presented to the ED with similar symptoms on 09/30/16 and was admitted to [facility] for bilateral lower extremity swelling and dyspnea. The pt was born a female but identifies as a male. Nursing Notes Stated Complaint: INFECTED LEGS Chief Complaint: Extremity Trauma Nursing Notes Reviewed: Yes ([employer], [employer] not reconciled) Allergies: Coded Allergies: Honey Bee (Verified Allergy, Severe, Anaphylaxis, 10/01/16) "stop breathing,and quivering" honey (Verified Allergy, Severe, Anaphylaxis, 10/01/16) azithromycin (Verified Allergy, Intermediate, emesis, 09/30/16) haloperidol (Verified Allergy, Intermediate, confusion, 09/30/16) Uncoded Allergies: redwood tree (Allergy, Unknown, Hives, 10/01/16) Scheduled ([testosterone ]) Unknown Dose INJ every 2 weeks Aspirin (Aspirin) 81 Mg Tablet 81 MG PO DAILY Atorvastatin (Lipitor) 80 Mg Tablet 80 MG PO DAILY Cholecalciferol (Vitamin D3) (Vitamin D3) 1,000 Unit Tab.chew 1,000 UNIT PO DAILY Ferrous Sulfate (Ferrous Sulfate) 325 Mg Tablet 325 MG PO DAILY Fexofenadine (Fexofenadine) 180 Mg Tablet 180 MG PO DAILY Fluoxetine (Fluoxetine) 20 Mg Capsule 40 MG PO DAILY Fluticasone Propionate (Flonase Allergy Relief) 50 Mcg/Actuation Brixey.susp 1 SPRAY NS BID Fluticasone/Salmeterol (Advair 100-50 Diskus) 60 Puffs/Inh Disk 1 PUFFS IH BID Furosemide (Furosemide) 40 Mg Tablet 20 MG PO DAILY Gabapentin (Gabapentin) 300 Mg Capsule 300 MG PO TID Glyburide (Glyburide) 2.5 Mg Tablet 2.5 MG PO BIDAC Levothyroxine (Levothyroxine) 300 Mcg Tablet 300 MCG PO DAILY Metformin (Glucophage) 500 Mg Tablet 500 MG PO BIDWM Mometasone/Formoterol (Dulera 100 Mcg/5 Mcg Inhaler) 13 Gm Hfa.aer.ad 2 PUFFS IH BID Montelukast (Montelukast) 10 Mg Tablet 10 MG PO HS Multivitamin (Once Daily) 1 Each Tablet 1 EACH PO DAILY Omeprazole (Omeprazole) 40 Mg Capsule.dr 40 MG PO BIDAC Salmeterol Xinafoate (Serevent Diskus) 50 Mcg/Puff Inhaler 2 PUFFS INH BID Trazodone (Trazodone) 50 Mg Tablet 50 MG PO HS Scheduled PRN Albuterol Neb Soln (Albuterol Neb Soln) 2.5 Mg/3 Ml Vial.neb 2.5 MG INHALATION QID PRN PRN For Shortness of Breath Albuterol Sulfate (Ventolin HFA Inhaler) 200 Puff/18 Gm Inhaler 2 PUFF INH q4-6 hours PRN PRN For Shortness of Breath Benzonatate (Benzonatate) 100 Mg Capsule 100 MG PO TID PRN PRN For Cough Carisoprodol (Soma) 350 Mg Tablet 350 MG PO BID PRN PRN MUSCLE SPASM Epinephrine (Epinephrine) 0.3 Mg/0.3 Ml Auto.injct Unknown Dose IJ prn PRN PRN For Anaphyllaxis Ibuprofen (Ibuprofen) 800 Mg Tablet 800 MG PO TID PRN PRN For Pain Loperamide (Loperamide) 2 Mg Capsule 2-4 MG PO BID PRN PRN For Diarrhea or Loose Stool Ondansetron (Zofran) 4 Mg Tablet 4 MG PO TIDWM PRN PRN For Nausea Sumatriptan Succinate (Imitrex) 50 Mg Tablet 50 MG PO PRN PRN PRN MIGRAINE Tramadol (Tramadol) 50 Mg Tablet 50 MG PO TID PRN PRN For Pain General Time Seen by MD: 21:53 Chief Complaint Other (Bilateral lower extremity swelling) Hx Obtained From: Patient Arrived By: Wheelchair Onset Occurred: More than a week ago... (2 weeks) Symptom Duration: Since onset Location: : Leg left: Leg right Quality: Painful Severity: Current: Moderate Severity: Maximum: Moderate Recent Healthcare: Recent doctor visit, Recent hospitalization Similar Sx Previous: Yes Past Medical History Past Medical History Notes: Admitted 09/2016 for CHF/Leg Edema Echocardiogram September 2016-technically difficult, EF estimated 6065% The pt was born a female but identifies as a male. 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 Respiratory: Reports: Dyspnea on exertion, Non-productive cough (chronic), Shortness of breath Physical Exam Patient is listed as transgender; refers to self as male Initial Vital Signs Vital Signs (First) Date Time Temp Pulse Resp B/P Pulse Ox O2 Delivery O2 Flow Rate FiO2 10/15/16 21:19 37 86 20 119/67 93 Nasal Cannula 2 Initial VS: Reviewed, Vital signs normal Head / Eyes: Atraumatic, Normocephalic Neck: Supple, Full range of motion Respiratory: Breath sounds normal, Clear to auscultation, No respiratory distress Cardiovascular: Regular rate & rhythm, Heart sounds normal, Intact distal pulses Upper Extremities: Vascular intact, Neuro intact Skin: Warm, Dry, No cyanosis Neurologic: Alert, Oriented, Nonfocal Psychiatric: Mood/affect normal, Behavior normal Lower Extremity / Pelvis / MS: Neurologic intact, Vascular intact Lymph edema of lower extremities bilaterally. Erythema, but no cellulitis. Ankle / Foot: Neurologic intact, Vascular intact General/Constitutional: Awake, Alert Appearance / Presentation: Positive: Obese Fatigued Respiratory / Chest: Atraumatic, Breath sounds = bilat Mildly dypneic even at rest. Diminished breath sounds. Cardiovascular: Heart rate NL, Regular rhythm, Heart sounds NL Heart tones are distant; I don't appreciate any murmurs. Abdomen: Soft Candidiasis on panicula and groin Wrist / Hand: Neurologic intact, Vascular intact Healing laceration across palm of left hand; no signs of infection Interpretation & Diagnostics Lab Results Interpretation Result Diagram: 10/15/16 2233 Test 10/15/16 22:33 10/15/16 22:34 10/15/16 23:22 10/15/16 23:33 White Blood Count 7.5th/mm3 (3.8-10.1) Red Blood Count 4.82mil/mm3 (3.90-5.20) Hemoglobin 13.6g/dL (12.0-15.6) Hematocrit 43.0% (35.0-46.0) Mean Corpuscular Volume 89.2fL (81-100) Mean Corpuscular Hemoglobin 28.2pg (27.0-35.0) Mean Corpuscular Hemoglobin Concent 31.6% (32.0-37.0) Red Cell Distribution Width 22.5% (12.3-15.4) Platelet Count 172bil/L (150-400) Neutrophils (%) (Auto) 73.9% (40-74) Lymphocytes (%) (Auto) 19.7% (14-46) Monocytes (%) (Auto) 6.3% (4-12) Eosinophils (%) (Auto) 0% (0-5) Basophils (%) (Auto) 0% (0-3) Hold Pandya Top Tube Received (Received) Hold Urine Received (Received) Test 10/15/16 23:45 Lab Results Interpretation: CBC normal CMP Troponin BMP X-Ray Chest Interpretation Chest Xray Interpretation: CHF View: Portable, 1 view Interpretation / Wet Read by: Wet read ED physician Re-Eval/Medical Decision Med Decision/Clinical Course This is a 46-year-old transgender male who presents complaining of increasing shortness of breath, leg edema, and leg pain. Patient has a recent admission for diastolic congestive heart failure several weeks ago, was discharged on Lasix that had to be reduced secondary to reported some renal insufficiency. Denies having increasing edema, and dyspnea. On ambulatory, is on home O2 and self increased his oxygen by additional 2 L due to his worsening shortness of breath. He denies fevers or chills, but is concerned about a cellulitis of the lower extremities do some worsening redness. He also has marked redness and soreness around the panniculus and groin. On exam he is mildly hypoxic, and it to the point that it similar to when he was admitted previously. Tachypnea can dipstick with even minimal exertion. He is morbidly obese, he has severe candidiasis of the groin and pannus. He has lymphedema in the lower extremities, but I do not appreciate signs of a bacterial cellulitis of lower extremities. There is some erythema, but again think this is limp edematous in origin, not truly cellulitic. The patient's also at risk for pickwickian syndrome, and hypercapnia-and a blood gas revealed a marginal E CO2 elevation, but no actual acidosis and appears adequately compensated. The patient requested and received some titrated pain medicine, but given the edema is being diuresed with additional 40 of Lasix. A chest x-ray per my interpretation is positive or radiographic findings of CHF which fits with the clinical presentation. Given the severity of presentation, lack of progress with outpatient management , readmission is indicated. Case discussed with hospitalist. Patient on re-evaluation is still co of some R>L leg pain, and he is concerned about ?DVT. Given his obesity and immobility, US for further evaluaton is being obtained. Source of Hx: Old records Re-Evaluation/Progress : Time of Eval: 23:07 Re-Evaluation/Progress Note: Pt rechecked. Informed pt of plan for admission. Pt understands and agrees with plan for admission. All questions addressed. Consultation : Referral / Consult Name: Aram Grant MD Consulted With: Hospitalist Call Returned at: 23:24 [employer]: Will see patient, Agrees with eval, Agrees with plan, Accepts admit Differential Diagnosis: Negative: Abrasion, Achilles tendon rupture, Arterial occlus/ischemia, Cellulitis, Compartment syndrome, Hip fracture Counseled Regarding: Diagnosis, Lab results, Need for admission Discharge & Departure Impression: Primary Impression: CHF (congestive heart failure) Congestive heart failure type: diastolic Congestive heart failure chronicity : acute Qualified Code: I50.31 - Acute diastolic (congestive) heart failure Additional Impressions: Morbid obesity Obesity type: unspecified obesity type Qualified Code: E66.01 - Morbid ( severe) obesity due to excess calories Failure of outpatient treatment Candidiasis Dyspnea Dyspnea type: unspecified Qualified Code: R06.00 - Dyspnea, unspecified Disposition: ADMITTED TO HOSPITAL Discharge Condition All VS Reviewed: Yes Condition: Stable Referrals: [facility] Scribe Attestation Portions of this note were transcribed by Nanda Carr. I, Dr. Quintana personally performed the history, physical exam and medical decision-making; I reviewed and confirmed the accuracy of the information in the transcribed note. Signed by: Errol Persaud, 10/15/16. copies to: [facility] Rd Quintana MD Oct 15, 2016 21:57 Nanda Reed Oct 15, 2016 22:06
[2016-10-15] MEDS ORDERED: HYDROmorphone 0.5 mg/0.5 mL iSecure Syringe IVPUSH ONE ×2 (22:10→23:40)
[2016-10-15] MEDS ORDERED: Furosemide 10 mg/mL 4 mL Inj IVPUSH ONE (22:10)
[2016-10-15 22:25] VITALS: BP 135/56; PULSE 104; RESP 16; O2SAT 98
[2016-10-15 22:37] LABS: BASOPHILS % (AUTO) 0 % (0-3); EOSINOPHILS % (AUTO) 0 % (0-5); MONOCYTES % (AUTO) 6.3 % (4-12); Mean Corpuscular Hemoglobin 28.2 pg (27.0-35.0); Mean Corpuscular Volume 89.2 fL (81-100); NEUTROPHILS % (AUTO) 73.9 % (40-74); Platelet Count 172 bil/L (150-400)
--- NOTE | 2016-10-15 23:12 | ABG ---
DateTimeAnalyzed 23:06:00 -_ pH ____7.406 - 7.350 7.450 pCO2 ___48.4__ -mmHg 35.0 45.0 pO2 ___90.4__ -mmHg 69.0 116 HCO3- ___29.8__ -mmol/L 22.0 26.0 ABE ____4.6__ -mmol/L -2.0 2.0 tHb ___13.6__ -g/dL O2Hb ___94.0__ -% COHb ____2.3__ -% MetHb ____0.6__ -% sO2 ___96.8__ -% 25.0 FIO2 ___34.0__ -% Drawn By blf - Date/Time Notified____ 23:11:00 -_ Spontaneous_RR ___22.0__ -b/min Liter_Flow ____4.0__ -L/min Oxygen Device 1 __CANNULA - Notified By blf - Notified Whom ___DR. RYAN - B 761 -mmHg tO2 ___18.0__ -Vol% Pb test _Positive -
[2016-10-15] MEDS ORDERED: Senna-Docusate 8.6-50 mg Tablet PO PRN (23:35)
[2016-10-15] MEDS ORDERED: Polyethylene Glycol (PEG) 17 Gm Powder PO PRN (23:35)
[2016-10-15] MEDS ORDERED: Alum-Mag Hydrox-Simeth 30 mL Suspension PO PRN (23:35)
[2016-10-15] MEDS ORDERED: TRAM50TA2 PO (23:38)
[2016-10-15] MEDS ORDERED: CHOL10008 PO (23:38)
[2016-10-15] MEDS ORDERED: CARI350T PO (23:38)
[2016-10-15] MEDS ORDERED: TRAZ-115 PO (23:38)
[2016-10-15] MEDS ORDERED: GABA-502 PO (23:38)
[2016-10-15] MEDS ORDERED: FLUT9.9S NS (23:38)
[2016-10-15] MEDS ORDERED: ONDA4TAB6 PO (23:38)
[2016-10-15] MEDS ORDERED: ADV100INH IH (23:39)
[2016-10-15] MEDS ORDERED: SUMA50TA31 PO (23:40)
[2016-10-15 23:41] VITALS: BP 108/49; PULSE 85; RESP 23; O2SAT 94
[2016-10-15 23:58] LABS: APPEARANCE,URINE HAZY (CLEAR,HAZY); COLOR,URINE YELLOW (YELLOW); OCCULT BLOOD,URINE NEGATIVE (NEGATIVE); UROBILINOGEN,URINE NORMAL (NORMAL)
[2016-10-16] VITALS (12 sets, daily range): BP systolic 96–152; BP diastolic 51–70; PULSE 69–98; RESP 20–26; O2SAT 92–98
[2016-10-16 00:03] LABS: INR 0.96 ratio
[2016-10-16 00:09] LABS: TROPONIN T 0.01 ug/L (0.0-0.011)
[2016-10-16 00:20] LABS: Magnesium 2.3 mg/dL (1.6-2.6)
[2016-10-16] MEDS: Sodium Chloride LOK Flush 10 mL Syringe IVFLUSH SCH ×3 (01:30→17:29)
[2016-10-16] MEDS ORDERED: Lidocaine 2% 6mL Topical Jelly TOPICAL ONE (02:00)
[2016-10-16] MEDS ORDERED: Albuterol-Ipratropium 3 mL Inhalation Solution NEB PRN (02:00)
--- NOTE | 2016-10-16 02:10 | PCM.HPMED ---
Subjective Date of Service Oct 15, 2016 Primary Provider: Admitting Physician: Primary Care Physician: Lee,[facility] Residency Attending Physician: Chief Complaint: Lower extremity edema History of Present Illness: Thai Yin is a 46 year old transgendered man with past medical history significant for asthma on home O2, edema, hypothyroidism, diabetes mellitus non- insulin using, and morbid obesity who presented to the [facility] emergency department due to bilateral leg swelling that started 2 weeks ago with bilateral leg wounds with left worse than right. The patient has noted bilateral leg pain, burning sensation, and has not been able to walk due to due to swelling. Patient also noticed shortness of breath, orthopnea and as needed to the sleep in a chair. Patient was recently admitted to this hospital due to acute hypoxemic respiratory failure due to diastolic heart failure. The patient states that the symptoms improved after discharge on but has been gradually worsening since. Patient was discharged on Lasix however her was reduced by half to avoid kidney injury. Patient denies any fevers, chills. He also states that he has needed to increase his home oxygen due to shortness of breath. The patient was scheduled for a sleep study tomorrow and is quite certain that he has sleep apnea. In the emergency depart the patient's vital signs were notable O2 saturation of 93% on 2L NC. He was given 1 mg of Dilaudid, 40 mg IV Lasix. Review of Systems: A comprehensive review of systems was conducted with the patient and found to be negative except as above in the History of Present Illness. Allergies Coded Allergies: Honey Bee (Verified Allergy, Severe, Anaphylaxis, 10/01/16) "stop breathing,and quivering" honey (Verified Allergy, Severe, Anaphylaxis, 10/01/16) azithromycin (Verified Allergy, Intermediate, emesis, 09/30/16) haloperidol (Verified Allergy, Intermediate, confusion, 09/30/16) Uncoded Allergies: redwood tree (Allergy, Unknown, Hives, 10/01/16) Home Medications Discharge Medications ([testosterone ]) Unknown Dose INJ every 2 weeks (Reported) Aspirin (Aspirin) 81 Mg Tablet 81 MG PO DAILY (Reported) Atorvastatin (Lipitor) 80 Mg Tablet 80 MG PO DAILY (Reported) Blood Sugar Diagnostic (Test Strips) 1 Each Strip 1 EACH MC TID Ferrous Sulfate (Ferrous Sulfate) 325 Mg Tablet 325 MG PO DAILY (Reported) Fexofenadine (Fexofenadine) 180 Mg Tablet 180 MG PO DAILY (Reported) Fluoxetine (Fluoxetine) 20 Mg Capsule 40 MG PO DAILY (Reported) Fluoxetine (Fluoxetine) 20 Mg Capsule 40 MG PO DAILY Furosemide (Furosemide) 40 Mg Tablet 40 MG PO BID (Reported) Glyburide (Glyburide) 2.5 Mg Tablet 2.5 MG PO BIDAC Levothyroxine (Levothyroxine) 300 Mcg Tablet 300 MCG PO DAILY (Reported) Metformin (Glucophage) 500 Mg Tablet 500 MG PO BIDWM Mometasone/Formoterol (Dulera 100 Mcg/5 Mcg Inhaler) 13 Gm Hfa.aer.ad 2 PUFFS IH BID (Reported) Montelukast (Montelukast) 10 Mg Tablet 10 MG PO HS (Reported) Multivitamin (Once Daily) 1 Each Tablet 1 EACH PO DAILY (Reported) Omeprazole (Omeprazole) 40 Mg Capsule.dr 40 MG PO DAILY (Reported) Salmeterol Xinafoate (Serevent Diskus) 50 Mcg/Puff Inhaler 2 PUFFS INH BID ( Reported) As needed Albuterol Neb Soln (Albuterol Neb Soln) 2.5 Mg/3 Ml Vial.neb 2.5 MG INHALATION QID PRN PRN For Shortness of Breath (Reported) Albuterol Sulfate (Ventolin HFA Inhaler) 200 Puff/18 Gm Inhaler 2 PUFF INH q4-6 hours PRN PRN For Shortness of Breath (Reported) Benzonatate (Benzonatate) 100 Mg Capsule 100 MG PO TID PRN PRN For Cough ( Reported) Epinephrine (Epinephrine) 0.3 Mg/0.3 Ml Auto.injct Unknown Dose IJ prn PRN PRN For Anaphyllaxis (Reported) Ibuprofen (Ibuprofen) 800 Mg Tablet 800 MG PO TID PRN PRN For Pain (Reported) Loperamide (Loperamide) 2 Mg Capsule 2-4 MG PO BID PRN PRN For Diarrhea or Loose Stool (Reported) oxyCODONE (oxyCODONE) 5 Mg Tablet 5 MG PO Q4H PRN PRN For Moderate Pain PMH Asthma Diabetes mellitus type II non-insulin using Hermaphrodite Lymphedema Hypothyroidism Surgical History Right knee arthroscopy Right elbow repair as a child Penectomy Family History Mother - at age 54 from [place], diabetes mellitus Father - diabetes mellitus, [place], black lung from coal mining Social History Hx Alcohol Use: No Hx Substance Use: No Hx Tobacco Use: Yes Smoking Status: Former Smoker Exam Vital Signs Vital Sign - Last Date Time Temp Pulse Resp B/P Pulse Ox O2 Delivery O2 Flow Rate FiO2 10/15/16 23:41 85 23 108/49 94 Nasal Cannula 4 10/15/16 21:19 37 Exam General: No acute distress, mildly obese, appropriately interactive HEENT: Normocephalic, atraumatic. External ears without defect. Pupils equal, round, and reactive to light and accommodation. Anicteric sclerae, moist conjunctivae, and no lid lag. Oropharynx free of erythema and cobble stoning with moist mucosa. Neck: Supple with full range of motion. No jugular venous distension but exam limited by body habitus. No lymphadenopathy or thyromegaly. Cardiovascular: Distant heart sounds with Regular rate and rhythm with no murmurs, rubs, or gallops appreciated but exam is limited by body habitus Pulmonary: Clear to auscultation bilaterally with no crackles, wheezes, or rhonchi but exam is limited by body. Normal respiratory effort with no use of accessory muscles. Abdomen: Bowel tones present. Soft, nontender, nondistended. No hepatosplenomegaly or masses appreciated. Extremities: Bilateral lower extremity edema up to mid abdomen. No clubbing. Skin: Bilateral lower extremity erythema with scabbed over wounds on the left leg. Neurological: Cranial nerves grossly intact. Normal muscle strength, tone, and bulk. Normal speech. Psychiatric: Agent is anxious and becomes tearful during the interview but is pleasant and cooperative. Alert and oriented to person, place, and time. Lab and Diagnostics Result Diagram: 10/15/162232 X-Rays, CTs and MRIs Chest x-ray read by author notes cardiomegaly as well as cephalization suggestive of CHF. Official read is pending. Cardiac Echo Impressions Interpretation Summary The study quality was technically difficult. A contrast injection of Definity was performed to improve assessment of LV function. The ejection fraction is estimated to be 60-65%. There is mild tricuspid regurgitation. The right ventricular systolic pressure is estimated at 46 mmHg assuming a right atrial pressure of 8 mm Hg. E/E' 11.4 Assessment & Plan Thai Yin is a 46 year old transgendered man with past medical history significant for asthma on home O2, edema, hypothyroidism, diabetes mellitus non- insulin using, and morbid obesity who presented to the [facility] emergency department due to bilateral leg swelling that started 2 weeks ago with bilateral leg wounds with left worse than right. Acute hypoxemic respiratory failure secondary to CHF exacerbation with underlying pulmonary hypertension due to sleep apnea and likely obesity hypoventilation syndrome, present on admission, active. -Patient is on home O2 as needed to increase O2 needs. -Chest x-ray consistent with fluid overload -We will treat the underlying diastolic CHF. -Patient will need to follow-up regarding his sleep study as he undoubtably needs a CPAP Heart failure with preserved ejection fraction, in exacerbation, present on admission, active -Recent echo showed an increased E/E' ratio suggestive of diastolic dysfunction -Patient's exacerbation is likely due to a decrease in his Lasix dose. -Patient is very anxious about overdiuresis and would like to start slow. -Was given 40 mg of Lasix IV in the emergency department we will continue 40 mg of IV Lasix twice a day -Daily weights, strict I and Os, 2 L fluid restriction, CHF teaching Chronic bilateral lymphedema with concomitant pitting edema secondary to CHF exacerbation, present on admission, active -Wound care consultation -Physical therapy Hypothyroidism, present on admission, active. - Levothyroxine Asthma, present on admission, chronic. - Continue home steroid inhalers - Duonebs every 6 hours when necessary. Diabetes mellitus type II, poorly controlled, present on admission, chronic. - Hemoglobin A1c 8.1, she was started on glyburide and metformin at previous admission. - We will hold by mouth medications - Monitor blood glucose, consistently above 180 initiate long-acting insulin therapy while hospitalized. Intertrigonal candidiasis, present on admission, active -Nystatin powder Anxiety with panic attacks present on admission, active -We will continue outpatient psychiatric regimen Transgendered person -Patient is scheduled for his testosterone injection today. CODE STATUS: Full code Patient is admitted under inpatient status with expected length of stay greater than 2 midnights due to severity of presenting symptoms, risk of adverse event, and complexity of treatment plan. VTE Prophylaxis: Sub-Q Heparin (Unfractionated) Resuscitation Status: CPR: Attempt Resuscitation Attending Statement The patient was seen and examined together with Dr. Goldberg on 10/15 and I agree with the history, exam and plan as outlined in the note above. Moraima Goldberg DO Oct 15, 2016 23:48 Aram Grant MD Oct 16, 2016 03:00
--- NOTE | 2016-10-16 03:00 | NUR ---
admit note/med rec pt is admitted to room 3026 from ED around 00:45 for CHF. Pt A&Ox4; SBA to the BR using FWW. Gets SOB and tachypneic with exertion; resolves when resting in bed. SpO2 in mid 90s on 4L when resting; normally uses 2-3L O2 at home. edema noted from waist down to his feet; pitting. Unable to complete skin assessment due to inability to take his pants off because of the edema. BLE are pink, warm to touch and remains intact. left hand lacerations are covered with band aid, and telfa with kerlix. Pt is oriented to room and plan of care; he verbalized understanding. med rec done before admission on the floor; pt unable to verify meds with this RN.
[2016-10-16] MEDS: Heparin 5,000 Unit/mL Inj SUBQ SCH ×3 (05:05→17:29)
[2016-10-16] MEDS: Nystatin 100,000 Unit/Gm 15 Gm Powder TOPICAL SCH ×3 (05:06→21:23)
[2016-10-16] MEDS: Furosemide 10 mg/mL 4 mL Inj IVPUSH SCH ×2 (07:50→17:30)
[2016-10-16] MEDS: Fluticasone-Salmeterol 100-50 Inhaler INHALATION SCH ×2 (07:58→21:20)
[2016-10-16] MEDS: Pantoprazole 40 mg ER24 Tablet PO SCH ×2 (07:59→17:29)
[2016-10-16] MEDS: Fluticasone 0.05% 15 Spray/2 Gm 16 Gm Nasal Spray NASAL SCH ×2 (08:01→21:20)
[2016-10-16] MEDS ORDERED: Salmeterol 50 mcg/Puff 28 Inhalation Diskus INHALATION SCH (08:30)
--- NOTE | 2016-10-16 08:47 | DRSVH ---
PROCEDURE: X-RAY CHEST ONE VIEW, PORTABLE ([id number]) INDICATIONS: SHORTNESS OF BREATH TECHNIQUE: One view of the chest was acquired. COMPARISON: [facility], CR, XR CHEST 1VW (PORTABLE), 09/30/2016, 23:50. FINDINGS: Surgical changes and devices: None. Lungs and pleura: No pleural effusions or pneumothorax. Diffuse, widespread bilateral interstitial opacities are present. Mediastinum: Mediastinal contours appear normal. Heart size is enlarged. Bones and chest wall: No suspicious bony lesions. Overlying soft tissues appear unremarkable. IMPRESSION: Acute CHF. Dictated by: Alexandro Abdullahi RR Interpreted: Anupam Lopez MD on 10/16/2016 at 8:45 Transcribed by: MELINDA on 10/16/2016 at 8:45 Approved by: Anupam Lopez M.D. on 10/16/2016 at 11:02
--- NOTE | 2016-10-16 09:22 | PCM.PNMED ---
Subjective Date of Service Oct 16, 2016 Subjective Patient seen and examined today. Complains of headache . Vitals stable. Exam Vital Signs Vital Sign - Last Date Time Temp Pulse Resp B/P Pulse Ox O2 Delivery O2 Flow Rate FiO2 10/16/16 09:01 69 20 97 Nasal Cannula 4.00 10/16/16 06:13 36.4 135/65 Intake and Output 10/15/16 10/15/16 10/16/16 Cumulative From/Thru 15:00 23:00 07:00 10/15/16 21:19 - 10/16/16 06:46 Intake Total 477 ml 477 ml Output Total 800 ml 800 ml Balance -323 ml -323 ml Intake Oral 477 ml 477 ml Output Urine Total 800 ml 800 ml Exam General: No acute distress, mildly obese, appropriately interactive Neck: Supple with full range of motion. No jugular venous distension but exam limited by body habitus. No lymphadenopathy or thyromegaly. Cardiovascular: Distant heart sounds with Regular rate and rhythm with no murmurs, rubs, or gallops appreciated but exam is limited by body habitus Pulmonary: Clear to auscultation bilaterally with no crackles, wheezes, or rhonchi but exam is limited by body. Normal respiratory effort with no use of accessory muscles. Abdomen: Bowel tones present. Soft, nontender, nondistended. No hepatosplenomegaly or masses appreciated. Extremities: Bilateral lower extremity edema up to mid abdomen. No clubbing. Skin: Bilateral lower extremity erythema with scabbed over wounds on the left leg. Psychiatric: Patient is anxious and becomes tearful during the interview but is pleasant and cooperative. Alert and oriented to person, place, and time. Lab and Diagnostics Result Diagram: 10/15/16 2233 10/16/16 0655 X-Rays, CTs and MRIs Chest x-ray read by author notes cardiomegaly as well as cephalization suggestive of CHF. Official read is pending. Cardiac Echo Impressions Interpretation Summary The study quality was technically difficult. A contrast injection of Definity was performed to improve assessment of LV function. The ejection fraction is estimated to be 60-65%. There is mild tricuspid regurgitation. The right ventricular systolic pressure is estimated at 46 mmHg assuming a right atrial pressure of 8 mm Hg. E/E' 11.4 Assessment & Plan Tahi Yin is a 46 year old transgendered man with past medical history significant for asthma on home O2, edema, hypothyroidism, diabetes mellitus non- insulin using, and morbid obesity who presented to the [facility] emergency department due to bilateral leg swelling that started 2 weeks ago with bilateral leg wounds with left worse than right. Acute hypoxemic respiratory failure secondary to CHF exacerbation with underlying pulmonary hypertension due to sleep apnea and likely obesity hypoventilation syndrome, present on admission, active. -Patient is on home O2 as needed to increase O2 needs. -Chest x-ray consistent with fluid overload -We will treat the underlying diastolic CHF. -Patient will need to follow-up regarding his sleep study as he undoubtably needs a CPAP Heart failure with preserved ejection fraction, in exacerbation, present on admission, active -Recent echo showed an increased E/E' ratio suggestive of diastolic dysfunction -Patient's exacerbation is likely due to a decrease in his Lasix dose. -Patient is very anxious about overdiuresis and would like to start slow. -Was given 40 mg of Lasix IV in the emergency department we will continue 40 mg of IV Lasix twice a day -Daily weights, strict I and Os, 2 L fluid restriction, CHF teaching Chronic bilateral lymphedema with concomitant pitting edema secondary to CHF exacerbation, present on admission, active -Wound care consultation -Physical therapy Hypothyroidism, present on admission, active. - Levothyroxine Asthma, present on admission, chronic. - Continue home steroid inhalers - Duonebs TID Diabetes mellitus type II, poorly controlled, present on admission, chronic. - Hemoglobin A1c 8.1, he was started on glyburide and metformin at previous admission. - We will hold by mouth medications - Monitor blood glucose, consistently above 180 initiate long-acting insulin therapy while hospitalized. Intertrigonal candidiasis, present on admission, active -Nystatin powder and cream Anxiety with panic attacks present on admission, active -We will continue outpatient psychiatric regimen Transgendered person -Patient is scheduled for his testosterone injection today. CODE STATUS: Full code Patient is admitted under inpatient status with expected length of stay greater than 2 midnights due to severity of presenting symptoms, risk of adverse event, and complexity of treatment plan. VTE Prophylaxis: Sub-Q Heparin (Unfractionated) Resuscitation Status: CPR: Attempt Resuscitation Time spent 35 mins Harris Espitia MD Oct 16, 2016 09:22
--- NOTE | 2016-10-16 10:33 | DRSVH ---
PROCEDURE: US VENOUS LEG DUPLEX BILATERAL INDICATIONS: sweelling pain, ro DVT TECHNIQUE: Real-time imaging, as well as color and pulse Doppler interrogation, were performed of the deep veins of both legs from the inguinal ligament to the popliteal fossa. COMPARISON: None. FINDINGS: Exam is limited by patient body habitus and open wound involving the right popliteal fossa. Within these limits the right common femoral and superficial femoral veins appear patent and no int raluminal thrombus is seen. Right popliteal vein not evaluated. Within the left leg, the superficia l femoral vein is visualized proximally and within the mid aspect of the vessel which appears patent. The distal superficial vein is not seen. Popliteal vein is patent. Common femoral vein unable to be evaluated. IMPRESSION: Very limited examination as above. No definitive intraluminal thrombus is seen. Dictated by: Alexandro Abdullahi [facility] Interpreted: Keri Urias MD on 10/16/2016 at 10:26 Approved by: Keri Urias MD, PhD on 10/16/2016 at 10:29
--- NOTE | 2016-10-16 10:48 | NUR ---
Evaluation completed. Please go to "Notes" then click on "Assessments and Notes" (bottom left corner of screen). Then select appropriate discipline tab on top of screen.
[2016-10-16] MEDS ORDERED: Glucose 40% Oral Gel 15 Gm Tube PO PRN (12:10)
[2016-10-16] MEDS ORDERED: HYDROcodone-APAP 5-325 mg Tablet PO ONE ×2 (12:30→14:00)
--- NOTE | 2016-10-16 12:31 | NUR ---
Inpatient Wound Nurse Patient seen for BLE assessment. Extensive pitting edema noted to BLE with L anterior and medial orantes showing multiple areas of scaling and peeling, slight ooze, dried crusts, indicating previously opened area. Patient also shows symptoms of topical fungus in popliteal space, inguinal folds, and panniculus. Splotchy erythema noted on posterior thighs and buttocks, patient complains of pruritis over nearly ever body surface.These are all very painful for patient but he agreed to care. BLE were cleansed and blotted dry. Unna wrap, Kerlix, and Coban were applied from met heads to popliteal spaces. Nonstick gauze was placed in popliteal spaces after they were cleansed, dried, and sprinkled with nystatin powder. Skin folds were cleansed and dried, then sprinkled with nystatin powder. A blue, breathable chucks (not green plastic) was folded in half lengthwise and placed under panniculus. Mepilex sheet foam was placed in inguinal folds which should absorb and transfer moisture away from body. Consider systemic antifungal and switch to ointment in skin folds as it will not ball up and become pasty. CWON will follow for compression wrap changes, anticipate Saturday, if patient can tolerate today's application that long. Referral for patient to be seen at outpatient [facility] for lymphadema therapy has been received but will not be scheduled until after discharge.
[2016-10-16] MEDS: Albuterol-Ipratropium 3 mL Inhalation Solution NEB SCH ×2 (14:55→21:07)
--- NOTE | 2016-10-16 15:47 | NUR ---
Nystatin Pt with severe fungal infection in skin folds, areas include lower abd, groin, back of knees. Nystatin powder available, new order of nystatin cream requested. Pt tolerating treatments well.
[2016-10-16] MEDS: Insulin LISPRO 300 Unit/3 mL Inj SUBQ SCH ×2 (17:30→21:26)
--- NOTE | 2016-10-16 17:36 | NUR ---
Social Work- attempted assessment: Data:EMR reviewed. pt kenyetta 46 y/o male who was admitted on 10/15/16 for CHF per H&P. Pt's insurance is [employer] Blind/disabled and [place] and [facility]. SW attempted to see pt today, RN requested that SW come back, pt is currently sleeping. SW to follow up with assessment tomorrow. SW will continue to follow. Assessment:pt who is independent at baseline. Plan:SW to follow up with assessment tomorrow. SW will continue to follow. ADARSH Cantor
[2016-10-17] VITALS (11 sets, daily range): BP systolic 111–183; BP diastolic 54–79; PULSE 68–98; RESP 20–22; O2SAT 94–99
[2016-10-17] MEDS: Sodium Chloride LOK Flush 10 mL Syringe IVFLUSH SCH ×3 (01:27→14:48)
[2016-10-17] MEDS: Heparin 5,000 Unit/mL Inj SUBQ SCH ×3 (01:27→17:03)
--- NOTE | 2016-10-17 05:39 | NUR ---
activity Pt complained of headache, given 5mg Roxicodone x2 this shift with good results. Pt alert and oriented x4, very emotional, up to bathroom with standby assist. Gait is steady with walker. Noted SOB with exertion, on 1.5L O2 nc. Pt sleeps for 2 hrs then up for 2 hrs, encouraged Pt to rest. Will continue to monitor.
[2016-10-17] MEDS: Fluticasone-Salmeterol 100-50 Inhaler INHALATION SCH ×2 (08:31→20:33)
[2016-10-17] MEDS: Fluticasone 0.05% 15 Spray/2 Gm 16 Gm Nasal Spray NASAL SCH ×2 (08:31→20:35)
[2016-10-17] MEDS: Insulin LISPRO 300 Unit/3 mL Inj SUBQ SCH ×4 (08:33→21:46)
[2016-10-17] MEDS: Furosemide 10 mg/mL 4 mL Inj IVPUSH SCH ×2 (08:34→17:04)
[2016-10-17] MEDS: Pantoprazole 40 mg ER24 Tablet PO SCH ×2 (08:36→17:02)
[2016-10-17] MEDS: Nystatin 100,000 Unit/Gm 15 Gm Powder TOPICAL SCH ×2 (08:37→20:36)
[2016-10-17] MEDS: Ondansetron 2 mg/mL 2 mL Inj IVPUSH PRN ×2 (08:39→17:04)
[2016-10-17] MEDS: Albuterol-Ipratropium 3 mL Inhalation Solution NEB SCH ×3 (08:52→20:38)
[2016-10-17] MEDS ORDERED: Dextrose 10% 250 ML IV PRN (09:00)
[2016-10-17] MEDS ORDERED: MetoCLOpramide 5 mg/mL 2 mL Inj IVPUSH PRN (09:05)
--- NOTE | 2016-10-17 09:10 | PCM.PNMED ---
Subjective Date of Service Oct 17, 2016 Subjective Patient seen and examined. Feels better, complains of headache. Vitals stable. Exam Vital Signs Vital Sign - Last Date Time Temp Pulse Resp B/P Pulse Ox O2 Delivery O2 Flow Rate FiO2 10/17/16 08:54 98 20 97 Nasal Cannula 2.00 10/17/16 05:25 148/79 10/17/16 05:01 36.4 Intake and Output 10/16/16 10/16/16 10/17/16 Cumulative From/Thru 15:00 23:00 07:00 10/15/16 21:19 - 10/17/16 06:23 Intake Total 2400 ml 948 ml 3825 ml Output Total 1700 ml 1450 ml 3950 ml Balance 700 ml -502 ml -125 ml Intake Oral 2400 ml 948 ml 3825 ml Output Urine Total 1700 ml 1450 ml 3950 ml # Voids 2 2 # Bowel Movements 2 2 Exam General: No acute distress, mildly obese, appropriately interactive Neck: Supple with full range of motion. No jugular venous distension but exam limited by body habitus. No lymphadenopathy or thyromegaly. Cardiovascular: Distant heart sounds with Regular rate and rhythm with no murmurs, rubs, or gallops appreciated but exam is limited by body habitus Pulmonary: Clear to auscultation bilaterally with no crackles, wheezes, or rhonchi but exam is limited by body. Normal respiratory effort with no use of accessory muscles. Abdomen: Bowel tones present. Soft, nontender, nondistended. No hepatosplenomegaly or masses appreciated. Extremities: Bilateral lower extremity edema up to mid abdomen. No clubbing. Skin: Bilateral lower extremity edema, wraps on Psychiatric: Patient is anxious and becomes tearful during the interview but is pleasant and cooperative. Alert and oriented to person, place, and time Lab and Diagnostics Result Diagram: 10/15/16 2233 10/16/16 1801 X-Rays, CTs and MRIs Chest x-ray read by author notes cardiomegaly as well as cephalization suggestive of CHF. Official read is pending. Cardiac Echo Impressions Interpretation Summary The study quality was technically difficult. A contrast injection of Definity was performed to improve assessment of LV function. The ejection fraction is estimated to be 60-65%. There is mild tricuspid regurgitation. The right ventricular systolic pressure is estimated at 46 mmHg assuming a right atrial pressure of 8 mm Hg. E/E' 11.4 Assessment & Plan Thai Yin is a 46 year old transgendered man with past medical history significant for asthma on home O2, edema, hypothyroidism, diabetes mellitus non- insulin using, and morbid obesity who presented to the [facility] emergency department due to bilateral leg swelling that started 2 weeks ago with bilateral leg wounds with left worse than right. Acute hypoxemic respiratory failure secondary to CHF exacerbation with underlying pulmonary hypertension due to sleep apnea and likely obesity hypoventilation syndrome, present on admission, active. -Patient is on home O2 as needed to increase O2 needs. -Chest x-ray consistent with fluid overload -We will treat the underlying diastolic CHF. -Patient will need to follow-up regarding his sleep study as he undoubtably needs a CPAP - -ve 500 ml , will continue diuresis gently Heart failure with preserved ejection fraction, in exacerbation, present on admission, active -Recent echo showed an increased E/E' ratio suggestive of diastolic dysfunction -Patient's exacerbation is likely due to a decrease in his Lasix dose. -Patient is very anxious about overdiuresis and would like to start slow. -Was given 40 mg of Lasix IV in the emergency department we will continue 40 mg of IV Lasix twice a day -Daily weights, strict I and Os, 2 L fluid restriction, CHF teaching Chronic bilateral lymphedema with concomitant pitting edema secondary to CHF exacerbation, present on admission, active -Wound care consultation -Physical therapy Hypothyroidism, present on admission, active. - Levothyroxine Asthma, present on admission, chronic. - Continue home steroid inhalers - Duonebs TID Diabetes mellitus type II, poorly controlled, present on admission, chronic. - Hemoglobin A1c 8.1, he was started on glyburide and metformin at previous admission. - We will hold by mouth medications - Monitor blood glucose, consistently above 180 initiate long-acting insulin therapy while hospitalized. Intertrigonal candidiasis, present on admission, active -Nystatin powder and cream Anxiety with panic attacks present on admission, active -We will continue outpatient psychiatric regimen Transgendered person -Patient is scheduled for his testosterone injection today. CODE STATUS: Full code Patient is admitted under inpatient status with expected length of stay greater than 2 midnights due to severity of presenting symptoms, risk of adverse event, and complexity of treatment plan. VTE Prophylaxis: Sub-Q Heparin (Unfractionated) VTE Mechanical Devices: Venous Foot Pump Resuscitation Status: CPR: Attempt Resuscitation Time spent 35 mins Harris Espitia MD Oct 17, 2016 09:10
--- NOTE | 2016-10-17 11:01 | NUR ---
IV Pt c/o "unrelenting" discomfort in SL IV to R FA and req to have it dc'd and a new one placed. IV dc'd intact, no redness/indicators of infx/infiltration noted at site. IVT contacted to place new IV as this is 2nd IV pt is reporting pain with.
--- NOTE | 2016-10-17 13:25 | NUR ---
Off unit Pt off unit for pulmonary testing, fish and wildlife technician aware. Addendum: 10/17/16 at 1400 by NIKITA TAVERAS RN Pt back on unit
--- NOTE | 2016-10-17 16:38 | NUR ---
Social Work-initial assessment: Data:See initial assessment. Pt is a 46 y/o transgendered man who was admitted on 10/15/16 for CHF per H&P. Pt's insurance is [employer] Blind/disabled and PCP is [facility]. EMR Reviewed. Pt's readmission score is 4- high risk. ALICE met with pt to discuss discharge planning, SW role explained. Pt resides at home his SO Genie in [place] where he remains independent with ADLS. Pt does not drive and uses a cane at baseline. Pt has no HH or SNF history. Pt has no vermin exterminator care insurance or VA benefits. SW discussed DPOA/ advanced directive, pt confirms this has not completed this, information has been provided. [facility] PT has seen pt and recommended home with HH services. MD order received. SW discussed HH services, HH choice list provided. Pt has no agency preference, only agency that takes Medicaid is [facility]. ALICE placed a call to Chase with [facility]. Chase states he will look into insurance and will get back with ALICE regarding this. Pt confirms her brother will provide transport home. ALICE provided pt with discharge planning checklist booklet and encouraged pt to call with any questions, phone number provided. SW will continue to follow. Assessment:pt who would benefit from HH services. Plan:Pt to discharge home when medically stable via POV. [facility] checking pt's insurance to determine if they can accept insurance for HH services. ALICE will continue to follow. ADARSH Cantor Addendum: 10/17/16 at 1734 by PADMINI AUSTIN Amended: Links added.
--- NOTE | 2016-10-17 18:03 | NUR ---
Activity/pain Pt amb to BR with FWW/SBA. Pt does become very SOB with minimal activity/focused tasks, recovers with rest. Currently on 3.5L via NC. Pt c/o GREGORIO, various PRN's given with mildly effective results. Pt emotional throughout this shift, crying at times. Provided support and allowed pt to verbalize concerns. Bed in lowest, locked position and call light in reach.
[2016-10-18] VITALS (7 sets, daily range): BP systolic 98–148; BP diastolic 52–71; PULSE 73–88; RESP 20–24; O2SAT 95–98
[2016-10-18] MEDS: Heparin 5,000 Unit/mL Inj SUBQ SCH ×3 (00:30→17:00)
[2016-10-18] MEDS: Sodium Chloride LOK Flush 10 mL Syringe IVFLUSH SCH ×3 (00:30→17:00)
--- NOTE | 2016-10-18 00:54 | ABG ---
DateTimeAnalyzed 00:47:00 -_ pH ____7.341 - 7.350 7.450 pCO2 ___62.0__ -mmHg 35.0 45.0 pO2 ___83.7__ -mmHg 69.0 116 HCO3- ___32.6__ -mmol/L 22.0 26.0 ABE ____5.5__ -mmol/L -2.0 2.0 tHb ___13.2__ -g/dL O2Hb ___92.4__ -% COHb ____2.0__ -% MetHb ____0.7__ -% sO2 ___95.0__ -% 25.0 FIO2 ___36.0__ -% Drawn By MM - Date/Time Notified____ 00:54:00 -_ Spontaneous_RR ___18.0__ -b/min Liter_Flow ____4.0__ -L/min Oxygen Device 1 __CANNULA - Notified By MM - Notified Whom DR CALIN - B 757 -mmHg tO2 ___17.2__ -Vol% Pb test _Positive -
--- NOTE | 2016-10-18 03:28 | NUR ---
Bipap Pt was tearful about having to use bipap last night. Pt tends to be tearful quickly but is easily distracted. Pt placed on continuous pulse ox to observe for oxygen sats dropping overnight. Much to my surprise the pulse ox did not alarm all night. Pt has been satting 94-96% on 2LNC and continuos pulse ox. Bipap was never used on patient.
[2016-10-18 06:55] LABS: BASOPHILS % (AUTO) 0 % (0-3); EOSINOPHILS % (AUTO) 0 % (0-5); Mean Corpuscular Hemoglobin 27.8 pg (27.0-35.0); Mean Corpuscular Volume 91.1 fL (81-100); Platelet Count 181 bil/L (150-400)
[2016-10-18] MEDS: Insulin LISPRO 300 Unit/3 mL Inj SUBQ SCH ×4 (07:36→21:34)
--- NOTE | 2016-10-18 09:17 | NUR ---
Social Work-readiness for discharge: Data:EMR reviewed. Pt is on day 3 of hospitalization for CHF per H&P. Pt is not medically stable anticipate 1-2 more days. PT recommending HH services. order received for RN and PT. SW received a call back from Chase Jack with [facility] who confirms they can accept pt's insurance and are able to take the referral. SW provided access in [employer]. Pt [facility] Home O2 through [facility]. F2F to be completed by . SW will continue to follow. Assessment:pt who would benefit from HH services. Plan:Pt to discharge home when medically stable via POV. Referral made to [facility] for RN and PT. F2F to be completed by . SW will continue to follow. ADARSH Cantor
[2016-10-18] MEDS: Pantoprazole 40 mg ER24 Tablet PO SCH ×2 (09:26→17:00)
[2016-10-18] MEDS: Furosemide 10 mg/mL 4 mL Inj IVPUSH SCH ×2 (09:27→17:00)
[2016-10-18] MEDS: Fluticasone-Salmeterol 100-50 Inhaler INHALATION SCH ×2 (09:27→21:27)
[2016-10-18] MEDS: Fluticasone 0.05% 15 Spray/2 Gm 16 Gm Nasal Spray NASAL SCH ×2 (09:28→21:27)
[2016-10-18] MEDS: Nystatin 100,000 Unit/Gm 15 Gm Powder TOPICAL SCH ×2 (09:31→21:31)
[2016-10-18] MEDS: Albuterol-Ipratropium 3 mL Inhalation Solution NEB SCH ×3 (10:11→21:01)
[2016-10-18] MEDS ORDERED: Butalbital-Acet-Caffeine Tablet PO ONE (11:25)
--- NOTE | 2016-10-18 11:37 | PCM.PNMED ---
Subjective Date of Service Oct 18, 2016 Subjective Patient seen and examined today. Complains of headache. Vitals stable. Exam Vital Signs Vital Sign - Last Date Time Temp Pulse Resp B/P Pulse Ox O2 Delivery O2 Flow Rate FiO2 10/18/16 11:18 36.7 76 24 134/61 97 Nasal Cannula 2.00 Intake and Output 10/17/16 10/17/16 10/18/16 Cumulative From/Thru 15:00 23:00 07:00 10/15/16 21:19 - 10/18/16 06:27 Intake Total 1875 ml 472 ml 6172 ml Output Total 1500 ml 350 ml 5800 ml Balance 375 ml 122 ml 372 ml Intake Oral 1875 ml 472 ml 6172 ml Output Urine Total 1500 ml 350 ml 5800 ml # Voids 2 # Bowel Movements 0 2 Exam General: No acute distress, mildly obese, appropriately interactive Neck: Supple with full range of motion. No jugular venous distension but exam limited by body habitus. No lymphadenopathy or thyromegaly. Cardiovascular: Distant heart sounds with Regular rate and rhythm with no murmurs, rubs, or gallops appreciated but exam is limited by body habitus Pulmonary: Clear to auscultation bilaterally with no crackles, wheezes, or rhonchi but exam is limited by body. Normal respiratory effort with no use of accessory muscles. Abdomen: Bowel tones present. Soft, nontender, nondistended. No hepatosplenomegaly or masses appreciated. Extremities: Bilateral lower extremity edema up to mid abdomen. No clubbing. Skin: Bilateral lower extremity edema, wraps on Psychiatric: Patient is anxious and becomes tearful during the interview but is pleasant and cooperative. Alert and oriented to person, place, and time Lab and Diagnostics Result Diagram: 10/18/1662410/18/16624 X-Rays, CTs and MRIs Chest x-ray read by author notes cardiomegaly as well as cephalization suggestive of CHF. Official read is pending. Cardiac Echo Impressions Interpretation Summary The study quality was technically difficult. A contrast injection of Definity was performed to improve assessment of LV function. The ejection fraction is estimated to be 60-65%. There is mild tricuspid regurgitation. The right ventricular systolic pressure is estimated at 46 mmHg assuming a right atrial pressure of 8 mm Hg. E/E' 11.4 Assessment & Plan Thai Yin is a 46 year old transgendered man with past medical history significant for asthma on home O2, edema, hypothyroidism, diabetes mellitus non- insulin using, and morbid obesity who presented to the [facility] emergency department due to bilateral leg swelling that started 2 weeks ago with bilateral leg wounds with left worse than right. Acute on chronic respiratory failure secondary to CHF exacerbation with underlying pulmonary hypertension due to sleep apnea and likely obesity hypoventilation syndrome, present on admission, active. -Patient is on home O2 as needed to increase O2 needs. -Chest x-ray consistent with fluid overload -We will treat the underlying diastolic CHF. -Patient will need to follow-up regarding his sleep study as he undoubtably needs a CPAP - will continue diuresis gently , will restrict fluid intake Heart failure with preserved ejection fraction, in exacerbation, present on admission, active -Recent echo showed an increased E/E' ratio suggestive of diastolic dysfunction -Patient's exacerbation is likely due to a decrease in his Lasix dose. -Patient is very anxious about overdiuresis and would like to start slow. -Was given 40 mg of Lasix IV in the emergency department we will continue 40 mg of IV Lasix twice a day -Daily weights, strict I and Os, 2 L fluid restriction, CHF teaching Chronic bilateral lymphedema with concomitant pitting edema secondary to CHF exacerbation, present on admission, active -Wound care consultation, appreciate taking care of wounds -Physical therapy Migraine - takes amitrax, is not helping - benadryl and reglan helped yesterday - will try fioricet today Obesity hypoventilation syndrome - BMI > 72.9 -awake alveolar hypercapnia, Pco2 > 45 (62) - patient requires nocturnal and daytime volume ventilation. BIPAP insufficient due to severity and chronicity of condition. OHS is primary cause of CRF/ hypercapnia Hypothyroidism, present on admission, active. - Levothyroxine Asthma, present on admission, chronic. - Continue home steroid inhalers - Duonebs TID Diabetes mellitus type II, poorly controlled, present on admission, chronic. - Hemoglobin A1c 8.1, he was started on glyburide and metformin at previous admission. - We will hold by mouth medications - Monitor blood glucose, consistently above 180 initiate long-acting insulin therapy while hospitalized. Intertrigonal candidiasis, present on admission, active -Nystatin powder and cream Anxiety with panic attacks present on admission, active -We will continue outpatient psychiatric regimen Transgendered person -Patient is scheduled for his testosterone injection today. CODE STATUS: Full code Patient is admitted under inpatient status with expected length of stay greater than 2 midnights due to severity of presenting symptoms, risk of adverse event, and complexity of treatment plan Dispo: Home with home health when clinically better. VTE Prophylaxis: Sub-Q Heparin (Unfractionated) VTE Mechanical Devices: Venous Foot Pump Resuscitation Status: CPR: Attempt Resuscitation Time spent 35 mins Harris Espitia MD Oct 18, 2016 11:37
--- NOTE | 2016-10-18 16:41 | NUR ---
AMA Pt requesting dinner and OJ, pt advised has already had fluid allotment for day shift. This RN is able to offer sips of water with pills however additional fluid is not recommended. Pt demanded to "see my doctor, I'm gonna go home" MD mayberryd, awaiting call back, A paperwork printed and outside the room for review and completion. Addendum: 10/18/16 at 1754 by ARELY CACERES RN called back shortly after page sent. This RN informed, pt is wanting to leave [facility] due to fluid restriction. spoke with pt and pt agreed to stay. Call light in reach, will continue to monitor.
[2016-10-19] MEDS: Sodium Chloride LOK Flush 10 mL Syringe IVFLUSH SCH ×2 (00:34→07:56)
[2016-10-19] MEDS: Heparin 5,000 Unit/mL Inj SUBQ SCH ×2 (00:34→07:59)
[2016-10-19 04:16] VITALS: BP 146/73; PULSE 78; RESP 24; O2SAT 95
[2016-10-19] MEDS: Pantoprazole 40 mg ER24 Tablet PO SCH (07:26)
[2016-10-19] MEDS: Fluticasone-Salmeterol 100-50 Inhaler INHALATION SCH (07:56)
[2016-10-19] MEDS: Insulin LISPRO 300 Unit/3 mL Inj SUBQ SCH ×2 (07:56→12:02)
[2016-10-19] MEDS: Fluticasone 0.05% 15 Spray/2 Gm 16 Gm Nasal Spray NASAL SCH (07:57)
[2016-10-19] MEDS: Furosemide 10 mg/mL 4 mL Inj IVPUSH SCH (07:57)
[2016-10-19] MEDS: Nystatin 100,000 Unit/Gm 15 Gm Powder TOPICAL SCH (07:59)
[2016-10-19 09:35] VITALS: BP 121/71; PULSE 80; RESP 18; O2SAT 96
[2016-10-19] MEDS: Albuterol-Ipratropium 3 mL Inhalation Solution NEB SCH (10:56)
[2016-10-19 10:57] VITALS: PULSE 78; RESP 20; O2SAT 95
[2016-10-19] MEDS ORDERED: Butalbital-Acet-Caffeine Tablet PO PRN (11:35)
--- NOTE | 2016-10-19 11:36 | PCM.PNMED ---
Subjective Date of Service Oct 19, 2016 Subjective Patient seen and examined. Anxious to go home. Feeling better breathing vise. Vitals stable. Exam Vital Signs Vital Sign - Last Date Time Temp Pulse Resp B/P Pulse Ox O2 Delivery O2 Flow Rate FiO2 10/19/16 10:57 78 20 95 Nasal Cannula 3.00 10/19/16 09:35 36.7 121/71 Intake and Output 10/18/16 10/18/16 10/19/16 Cumulative From/Thru 15:00 23:00 07:00 10/15/16 21:19 - 10/18/16 17:25 Intake Total 1900 ml 8072 ml Output Total 2850 ml 8650 ml Balance -950 ml -578 ml Intake Oral 1900 ml 8072 ml Output Urine Total 2850 ml 8650 ml # Voids 2 # Bowel Movements 0 2 Exam General: No acute distress, mildly obese, appropriately interactive Neck: Supple with full range of motion. No jugular venous distension but exam limited by body habitus. No lymphadenopathy or thyromegaly. Cardiovascular: Distant heart sounds with Regular rate and rhythm with no murmurs, rubs, or gallops appreciated but exam is limited by body habitus Pulmonary: Clear to auscultation bilaterally with no crackles, wheezes, or rhonchi but exam is limited by body. Normal respiratory effort with no use of accessory muscles. Abdomen: Bowel tones present. Soft, nontender, nondistended. No hepatosplenomegaly or masses appreciated. Extremities: Bilateral lower extremity edema up to mid abdomen. No clubbing. Skin: Bilateral lower extremity edema, wraps on Psychiatric: Patient is anxious and becomes tearful during the interview but is pleasant and cooperative. Alert and oriented to person, place, and time Lab and Diagnostics Result Diagram: 10/18/16 0625 10/19/16 0645 X-Rays, CTs and MRIs Chest x-ray read by author notes cardiomegaly as well as cephalization suggestive of CHF. Official read is pending. Cardiac Echo Impressions Interpretation Summary The study quality was technically difficult. A contrast injection of Definity was performed to improve assessment of LV function. The ejection fraction is estimated to be 60-65%. There is mild tricuspid regurgitation. The right ventricular systolic pressure is estimated at 46 mmHg assuming a right atrial pressure of 8 mm Hg. E/E' 11.4 Assessment & Plan Thai Yin is a 46 year old transgendered man with past medical history significant for asthma on home O2, edema, hypothyroidism, diabetes mellitus non- insulin using, and morbid obesity who presented to the [facility] emergency department due to bilateral leg swelling that started 2 weeks ago with bilateral leg wounds with left worse than right. Acute on chronic respiratory failure secondary to CHF exacerbation with underlying pulmonary hypertension due to sleep apnea and likely obesity hypoventilation syndrome, present on admission, active. -Patient is on home O2 as needed to increase O2 needs. -Chest x-ray consistent with fluid overload -We will treat the underlying diastolic CHF. -Patient will need to follow-up regarding his sleep study as he undoubtably needs a CPAP - will continue diuresis gently , will restrict fluid intake Heart failure with preserved ejection fraction, in exacerbation, present on admission, active -Recent echo showed an increased E/E' ratio suggestive of diastolic dysfunction -Patient's exacerbation is likely due to a decrease in his Lasix dose. -Patient is very anxious about overdiuresis and would like to start slow. -Was given 40 mg of Lasix IV in the emergency department we will continue 40 mg of IV Lasix twice a day -Daily weights, strict I and Os, 1.5 L fluid restriction, CHF teaching - -800 ml yesterday Chronic bilateral lymphedema with concomitant pitting edema secondary to CHF exacerbation, present on admission, active -Wound care consultation, appreciate taking care of wounds -Physical therapy : rec home health Migraine - takes amitrax, is not helping - benadryl and reglan helped yesterday - mickey worked for him, will continue Obesity hypoventilation syndrome - BMI > 72.9 -awake alveolar hypercapnia, Pco2 > 45 (62) - patient requires nocturnal and daytime volume ventilation. BIPAP insufficient due to severity and chronicity of condition. OHS is primary cause of CRF/ hypercapnia Hypothyroidism, present on admission, active. - Levothyroxine Asthma, present on admission, chronic. - Continue home steroid inhalers - Duonebs TID Diabetes mellitus type II, poorly controlled, present on admission, chronic. - Hemoglobin A1c 8.1, he was started on glyburide and metformin at previous admission. - We will hold by mouth medications - glucose controlled with current regimen Intertrigonal candidiasis, present on admission, active -Nystatin powder and cream Anxiety with panic attacks present on admission, active -We will continue outpatient psychiatric regimen Transgendered person -Patient gets testosterone injections CODE STATUS: Full code Patient is admitted under inpatient status with expected length of stay greater than 2 midnights due to severity of presenting symptoms, risk of adverse event, and complexity of treatment plan Dispo: Home with home health when clinically better. VTE Prophylaxis: Sub-Q Heparin (Unfractionated) VTE Mechanical Devices: Venous Foot Pump Resuscitation Status: CPR: Attempt Resuscitation Time spent 35 mins Harris Espitia MD Oct 19, 2016 11:08
--- NOTE | 2016-10-19 11:51 | NUR ---
Inpatient Wound Nurse Patient seen in follow up for BLE edema and wounds. Edema does not appear improved from previous assessment although patient stated "wow, my legs haven't been this small in a long time!" Feet warm, pink. RLE erythema noted on anterior moving lateral to medially, 5 cm L x 18 cm W. No wounds identified on this limb. Two wounds noted on LLE anterior, proximal and distal. These wounds were closed, dry crusts prior to application of UNNA earlier this week. Proximal wound measures 1 cm L x 0.5 cm W x <0.1 cm D, glossy pink wound bed, edges flaking, periwound erythema stippling with dusky areas. Distal wound measures 0.5 cm L x 0.1 cm W x 0.1 cm D, glossy pink wound bed, edges flaking, periwound erythema stippling with dusky areas. Both wounds appear as splits in skin and part of ongoing venous dermatitis process. Very minor staining on removed Unna of dried turquoise drainage. As dried crusting was flaked off of wound bed with dry Q tip, it was noted with turquoise stain. No odor to wounds or removed dressing, and only very minimal drainage. Overall, dermatitis is improved. Concern for pseudomonas resulted in swab for culture and sensitivity. Patient complained of mild discomfort over L palm where healing, mostly approximated, dry laceration is healing that patient sustained when he closed his pocket knife a few weeks ago. For patient's comfort, wound was cleansed, blotted dry, covered with small strip of Xeroform and 4x4 bordered Mepilex. Patient was provided with cleansing solution, gauze, and remainder of Xeroform, instructed to change dressing PRN. Patient was instructed that BLE wraps should remain in place for one week. If he could not tolerate them and chose to remove them, he should cover his two open areas on LLE with Band Aids. He has follow up at [facility], where he is an active patient, on October 25 at 11 am. Patient instructed to ask about lymphadema therapy once wounds have healed.
[2016-10-19] MEDS ORDERED: FURO40TA4 PO (12:25)
[2016-10-19] MEDS ORDERED: FURO-129 PO (12:25)
[2016-10-19] MEDS ORDERED: BUTA-238 PO (12:25)
--- NOTE | 2016-10-19 12:28 | PCM.DIMED ---
Discharge Instructions Date of Service Oct 19, 2016 Dates of Hospitalization Oct 15, 2016 at 23:51 Medication Instructions Additional med instructions Take lasix switch 20 BID. Diet Discharge Diet: Low fat, Low Sodium Activity Discharge Activity: Home Health Phyical Therapy Call your provider Call your provider for: Fever or Chills, Shortness of breath, Chest pain Patient Instructions Follow-up with PCP in: 1 week Harris Espitia MD Oct 19, 2016 12:28
--- NOTE | 2016-10-19 12:39 | PCM.DC.MED ---
Discharge Summary Date of Service Oct 19, 2016 Dates of Hospitalization Date of Hospital Admission Oct 15, 2016 at 23:51 Date of Discharge: Oct 19, 2016 Providers: Admitting Physician: Aram Grant MD [facility] Attending Physician: Varsha Layton MD Diagnosis at Time of Discharge Diagnosis at Time of Discharge CHF Procedures XRay, CTs & MRIs Chest x-ray read by author notes cardiomegaly as well as cephalization suggestive of CHF. Official read is pending. Cardiac Echo Impression Interpretation Summary The study quality was technically difficult. A contrast injection of Definity was performed to improve assessment of LV function. The ejection fraction is estimated to be 60-65%. There is mild tricuspid regurgitation. The right ventricular systolic pressure is estimated at 46 mmHg assuming a right atrial pressure of 8 mm Hg. E/E' 11.4 Brief History Thai Yin is a 46 year old transgendered man with past medical history significant for asthma on home O2, edema, hypothyroidism, diabetes mellitus non- insulin using, and morbid obesity who presented to the [facility] emergency department due to bilateral leg swelling that started 2 weeks ago with bilateral leg wounds with left worse than right. The patient has noted bilateral leg pain, burning sensation, and has not been able to walk due to due to swelling. Patient also noticed shortness of breath, orthopnea and as needed to the sleep in a chair. Patient was recently admitted to this hospital due to acute hypoxemic respiratory failure due to diastolic heart failure. The patient states that the symptoms improved after discharge on but has been gradually worsening since. Patient was discharged on Lasix however her was reduced by half to avoid kidney injury. Patient denies any fevers, chills. He also states that he has needed to increase his home oxygen due to shortness of breath. The patient was scheduled for a sleep study tomorrow and is quite certain that he has sleep apnea. In the emergency depart the patient's vital signs were notable O2 saturation of 93% on 2L NC. He was given 1 mg of Dilaudid, 40 mg IV Lasix. Hospital Course Thai Yin is a 46 year old transgendered man with past medical history significant for asthma on home O2, edema, hypothyroidism, diabetes mellitus non- insulin using, and morbid obesity who presented to the [facility] emergency department due to bilateral leg swelling that started 2 weeks ago with bilateral leg wounds with left worse than right. Acute on chronic respiratory failure secondary to CHF exacerbation with underlying pulmonary hypertension due to sleep apnea and likely obesity hypoventilation syndrome, present on admission, active. -Patient is on home O2 as needed to increase O2 needs. -Chest x-ray consistent with fluid overload -We will treat the underlying diastolic CHF. -Patient will need to follow-up regarding his sleep study as he undoubtably needs a CPAP - will continue diuresis gently at home - patient non compliant with fluid intake, educated about restricting the amount of fluid he needs per day Heart failure with preserved ejection fraction, in exacerbation, present on admission, active -Recent echo showed an increased E/E' ratio suggestive of diastolic dysfunction -Patient's exacerbation is likely due to a decrease in his Lasix dose. -Was given 40 mg of Lasix IV in the emergency departmen, continued 40 mg of IV Lasix twice a day -Daily weights, strict I and Os, 1.5 L fluid restriction, CHF teaching - -800 ml yesterday , edequate diuresis achieved Chronic bilateral lymphedema with concomitant pitting edema secondary to CHF exacerbation, present on admission, active -Wound care consultation, appreciate taking care of wounds -Physical therapy : rec home health wound care Migraine - takes amitrax, is not helping - benadryl and reglan helped yesterday - mickey worked for him, will continue Obesity hypoventilation syndrome - BMI > 72.9 -awake alveolar hypercapnia, Pco2 > 45 (62) - patient requires nocturnal and daytime volume ventilation. BIPAP insufficient due to severity and chronicity of condition. OHS is primary cause of CRF/ hypercapnia - to get trilogy ventilator for respiration support Hypothyroidism, present on admission, active. - Levothyroxine Asthma, present on admission, chronic. - Continue home steroid inhalers - Duonebs TID Diabetes mellitus type II, poorly controlled, present on admission, chronic. - Hemoglobin A1c 8.1, he was started on glyburide and metformin at previous admission. - continue home meds - outpatient followup Intertrigonal candidiasis, present on admission, active -Nystatin powder and cream Anxiety with panic attacks present on admission, active -We will continue outpatient psychiatric regimen Transgendered person -Patient gets testosterone injections CODE STATUS: Full code Patient is admitted under inpatient status with expected length of stay greater than 2 midnights due to severity of presenting symptoms, risk of adverse event, and complexity of treatment plan r. Exam Vital Signs (Last) Date Time Temp Pulse Resp B/P Pulse Ox O2 Delivery O2 Flow Rate FiO2 10/19/16 10:57 78 20 95 Nasal Cannula 3.00 10/19/16 09:35 36.7 121/71 Test 10/15/16 22:33 10/15/16 22:34 10/15/16 23:22 10/15/16 23:33 Prothrombin Time 10.3sec (8.1-12.5) Prothromb Time International Ratio 0.96ratio Hold Pandya Top Tube Received (Received) Hold Urine Received (Received) Magnesium Level 2.3mg/dL (1.6-2.6) Total Bilirubin 0.8mg/dL (0.0-1.2) Aspartate Amino Transf (AST/SGOT) 27U/L (0-50) Alanine Aminotransferase (ALT/SGPT) 18U/L (0-32) Alkaline Phosphatase 65U/L (25-150) Troponin T 0.010ug/L (0.0-0.011) Pro-B-Type Natriuretic Peptide 51.01pg/mL (0-249) Total Protein 6.8g/dL (6.4-8.4) Albumin 3.9g/dL (3.4-5.0) Test 10/15/16 23:45 10/18/16 06:25 10/19/16 06:45 Urine Color Yellow (YELLOW) Urine Appearance Hazy (CLEAR,HAZY) Urine pH 6.0 (5.0-8.0) Urine Specific Stephens 1.010 (1.003-1.035) Urine Protein Negativemg/dL (NEG,TRACE) Urine Glucose (UA) Negativemg/dL (NEGATIVE) Urine Ketones Negativemg/dL (NEGATIVE) Urine Occult Blood Negative (NEGATIVE) Urine Nitrite Negative (NEGATIVE) Urine Bilirubin Negative (NEGATIVE) Urine Urobilinogen Normalmg/dL (NORMAL) Urine Leukocyte Esterase Moderate (NEGATIVE) Urine RBC 0-2/hpf (0-2) Urine WBC 11-50/hpf (0-5) Urine Epithelial Cells Few/hpf (NONE-MOD) Urine Crystals None seen (NONE SEEN) Urine Bacteria Moderate/hpf (NONE-FEW) Urine Hyaline Casts Occasional/lpf (NONE) Urine Granular Casts None seen (NONE SEEN) Urine Waxy Casts None seen (NONE SEEN) Urine Red Blood Cell Casts None seen (NONE SEEN) Urine White Blood Cell Casts None seen (NONE SEEN) Urine Mucus None seen (None Seen) Urine Trichomonas None seen (NONE SEEN) Urine Yeast None (NONE SEEN) Urinalysis Comment None Urine Culture Reflexed Indicated White Blood Count 6.9th/mm3 (3.8-10.1) Red Blood Count 4.72mil/mm3 (3.90-5.20) Hemoglobin 13.1g/dL (12.0-15.6) Hematocrit 43.0% (35.0-46.0) Mean Corpuscular Volume 91.1fL (81-100) Mean Corpuscular Hemoglobin 27.8pg (27.0-35.0) Mean Corpuscular Hemoglobin Concent 30.5% (32.0-37.0) Red Cell Distribution Width 22.0% (12.3-15.4) Platelet Count 181bil/L (150-400) Neutrophils (%) (Auto) 71.0% (40-74) Lymphocytes (%) (Auto) 20.9% (14-46) Monocytes (%) (Auto) 8.0% (4-12) Eosinophils (%) (Auto) 0% (0-5) Basophils (%) (Auto) 0% (0-3) Sodium Level 138mEq/L (134-144) Potassium Level 4.7mEq/L (3.5-5.2) Chloride Level 94mEq/L (97-108) Carbon Dioxide Level 32mmol/L (18-29) Blood Urea Nitrogen 19mg/dL (6-24) Creatinine 1.14mg/dL (0.57-1.00) Estimat Glomerular Filtration Rate 74mL/min (>59) Glucose Level 180mg/dL (60-99) Calcium Level 9.1mg/dL (8.5-10.1) Discharge Medications Discharge Medications ([testosterone ]) Unknown Dose INJ every 2 weeks (Reported) Aspirin (Aspirin) 81 Mg Tablet 81 MG PO DAILY (Reported) Atorvastatin (Lipitor) 80 Mg Tablet 80 MG PO DAILY (Reported) Cholecalciferol (Vitamin D3) (Vitamin D3) 1,000 Unit Tab.chew 1,000 UNIT PO DAILY (Reported) Ferrous Sulfate (Ferrous Sulfate) 325 Mg Tablet 325 MG PO DAILY (Reported) Fexofenadine (Fexofenadine) 180 Mg Tablet 180 MG PO DAILY (Reported) Fluoxetine (Fluoxetine) 20 Mg Capsule 40 MG PO DAILY (Reported) Fluticasone Propionate (Flonase Allergy Relief) 50 Mcg/Actuation [place].susp 1 SPRAY NS BID (Reported) Fluticasone/Salmeterol (Advair 100-50 Diskus) 60 Puffs/Inh Disk 1 PUFFS IH BID ( Reported) Furosemide (Lasix) 20 Mg Tablet 20 MG PO BID Prescribed by: VARSHA LAYTON MD Gabapentin (Gabapentin) 300 Mg Capsule 300 MG PO TID (Reported) Glyburide (Glyburide) 2.5 Mg Tablet 2.5 MG PO BIDAC Prescribed by: DERIK PEREZ MD Levothyroxine (Levothyroxine) 300 Mcg Tablet 300 MCG PO DAILY (Reported) Metformin (Glucophage) 500 Mg Tablet 500 MG PO BIDWM Prescribed by: DERIK PEREZ MD Mometasone/Formoterol (Dulera 100 Mcg/5 Mcg Inhaler) 13 Gm Hfa.aer.ad 2 PUFFS IH BID (Reported) Montelukast (Montelukast) 10 Mg Tablet 10 MG PO HS (Reported) Multivitamin (Once Daily) 1 Each Tablet 1 EACH PO DAILY (Reported) Omeprazole (Omeprazole) 40 Mg Capsule.dr 40 MG PO BIDAC (Reported) Salmeterol Xinafoate (Serevent Diskus) 50 Mcg/Puff Inhaler 2 PUFFS INH BID ( Reported) Trazodone (Trazodone) 50 Mg Tablet 50 MG PO HS (Reported) As needed Albuterol Neb Soln (Albuterol Neb Soln) 2.5 Mg/3 Ml Vial.neb 2.5 MG INHALATION QID PRN PRN For Shortness of Breath (Reported) Albuterol Sulfate (Ventolin HFA Inhaler) 200 Puff/18 Gm Inhaler 2 PUFF INH q4-6 hours PRN PRN For Shortness of Breath (Reported) Benzonatate (Benzonatate) 100 Mg Capsule 100 MG PO TID PRN PRN For Cough ( Reported) Butalbital/Acetamin/Caff 50-300-40 mg (Butalbital/Acetamin/Caff 50-300-40 mg) 1 Each Tablet 1 TAB PO Q6 PRN PRN Headache Prescribed by: VARSHA LAYTON MD Carisoprodol (Soma) 350 Mg Tablet 350 MG PO BID PRN PRN MUSCLE SPASM (Reported) Epinephrine (Epinephrine) 0.3 Mg/0.3 Ml Auto.injct Unknown Dose IJ prn PRN PRN For Anaphyllaxis (Reported) Ibuprofen (Ibuprofen) 800 Mg Tablet 800 MG PO TID PRN PRN For Pain (Reported) Loperamide (Loperamide) 2 Mg Capsule 2-4 MG PO BID PRN PRN For Diarrhea or Loose Stool (Reported) Ondansetron (Zofran) 4 Mg Tablet 4 MG PO TIDWM PRN PRN For Nausea (Reported) Sumatriptan Succinate (Imitrex) 50 Mg Tablet 50 MG PO PRN PRN PRN MIGRAINE ( Reported) Tramadol (Tramadol) 50 Mg Tablet 50 MG PO TID PRN PRN For Pain (Reported) Additional med instructions Take lasix switch 20 BID. Followup Plan Discharge Diet: Low fat, Low Sodium Discharge Activity: Home Health Phyical Therapy Follow-up with PCP in: 1 week Varsha Layton MD Oct 19, 2016 12:39
[2016-10-19] MEDS ORDERED: TRAZ-115 PO (13:09)
[2016-10-19] MEDS ORDERED: OXYC5CAP4 PO (13:09)
--- NOTE | 2016-10-19 13:41 | NUR ---
Discharge Pt discharged at this time, all belongings gathered and returned to pt. Hard copy of new scripts given. No complains of increased pain or SOB. Discharge packet printed and reviewed. Pt in room awaiting ride home.
--- NOTE | 2016-10-19 13:58 | NUR ---
Social Work: Discharge Data: Pt is on day 4 of hospitalization. EMR reviewed. Pt discussed in multidisciplinary rounds, states that pt will d/c today with resume HH for PT and RN. Order received from . No further d/c planning needs at this time. [facility] will continue to follow if needs arise. Assessment: Pt who is independent at baseline, currently capable of self care. Plan: Pt will d/c home via POV today with [facility] for RN and PT. No further d/c planning needs at this time. [facility] will continue to follow if needs arise. ADARSH Roberts
== END 2016-10-19 13:50 | disposition home health service (06) | DRG 291 ==
LOC: EDSEX → SED 21:15 → MPC 23:51
PROVIDERS: ADMIT Hospitalist; ATTEND Internal Medicine
PROC: 4A033R1 Measurement of Arterial Saturation, Peripheral, Percutaneous Approach (ICD-10-PCS; principal; 2016-10-18)
DX: I50.31 Acute diastolic (congestive) heart failure (principal); J96.21 Acute and chronic respiratory failure with hypoxia; E66.2 Morbid (severe) obesity with alveolar hypoventilation; E11.65 Type 2 diabetes mellitus with hyperglycemia; Z99.81 Dependence on supplemental oxygen; B37.2 Candidiasis of skin and nail; G43.909 Migraine, unspecified, not intractable, without status migrainosus; Z68.45 Body mass index [BMI] 70 or greater, adult; E03.9 Hypothyroidism, unspecified; F41.0 Panic disorder [episodic paroxysmal anxiety]; J45.909 Unspecified asthma, uncomplicated; Z79.82 Long term (current) use of aspirin; Z79.51 Long term (current) use of inhaled steroids; Z87.891 Personal history of nicotine dependence; Z79.84 Long term (current) use of oral hypoglycemic drugs

== ENCOUNTER 2016-10-24 18:10 | Inpatient (IN) | payer OTHER, MEDICAID ==
[~2016-10-24] VITALS: Ht 154.9 cm; Wt 177.6 kg
[~2016-10-24 18:10] MED LIST changes: +ADV100INH IH; -BLOO-1504 MC; +BUTA-238 PO; +CARI350T PO; +CHOL10008 PO; +FLUT9.9S NS; +FURO-129 PO; -FURO40TA4 PO; +GABA-502 PO; -NEBU-145 MC; +ONDA4TAB6 PO; +OXYC5CAP4 PO; -OXYC5TAB72 PO; +SUMA50TA31 PO; +TRAM50TA2 PO; +TRAZ-115 PO; -WALK1EAC55 MC
[2016-10-24 18:26] VITALS: BP 160/59; PULSE 81; RESP 30; O2SAT 88
[2016-10-24 18:49] LABS: EOSINOPHILS % (AUTO) 0 % (0-5); Mean Corpuscular Volume 92.3 fL (81-100)
[2016-10-24] MEDS ORDERED: Albuterol-Ipratropium 3 mL Inhalation Solution NEB ONE (18:50)
--- NOTE | 2016-10-24 18:50 | ED.REPORT ---
HPI-Dyspnea / Wheezing Date of Service Oct 24, 2016 ED Provider: Alex Elliott DO Patient is a 46 year old transgender, who identifies as a male with a history of asthma, CHF, diabetes with neuropathy who presents to the ED complaining of increasing dyspnea. Associated symptoms include chest pressure, nausea, difficulty urinating and bilateral leg swelling. Nursing Notes Stated Complaint: CHEST PAIN, BLOATED, NAUSEA Chief Complaint: Respiratory Distress Nursing Notes Reviewed: Yes Allergies: Coded Allergies: Honey Bee (Verified Allergy, Severe, Anaphylaxis, 10/24/16) "stop breathing,and quivering" honey (Verified Allergy, Severe, Anaphylaxis, 10/24/16) azithromycin (Verified Allergy, Intermediate, emesis, 10/24/16) haloperidol (Verified Allergy, Intermediate, confusion, 10/24/16) Uncoded Allergies: redwood tree (Allergy, Unknown, Hives, 10/01/16) Scheduled ([testosterone ]) Unknown Dose INJ every 2 weeks Aspirin (Aspirin) 81 Mg Tablet 81 MG PO DAILY Atorvastatin (Lipitor) 80 Mg Tablet 80 MG PO DAILY Cholecalciferol (Vitamin D3) (Vitamin D3) 1,000 Unit Tab.chew 1,000 UNIT PO DAILY Ferrous Sulfate (Ferrous Sulfate) 325 Mg Tablet 325 MG PO DAILY Fexofenadine (Fexofenadine) 180 Mg Tablet 180 MG PO DAILY Fluoxetine (Fluoxetine) 20 Mg Capsule 40 MG PO DAILY Fluticasone Propionate (Flonase Allergy Relief) 50 Mcg/Actuation [place].susp 1 SPRAY NS BID Fluticasone/Salmeterol (Advair 100-50 Diskus) 60 Puffs/Inh Disk 1 PUFFS IH BID Furosemide (Lasix) 20 Mg Tablet 20 MG PO BID Gabapentin (Gabapentin) 300 Mg Capsule 300 MG PO TID Glyburide (Glyburide) 2.5 Mg Tablet 2.5 MG PO BIDAC Levothyroxine (Levothyroxine) 300 Mcg Tablet 300 MCG PO DAILY Metformin (Glucophage) 500 Mg Tablet 500 MG PO BIDWM Mometasone/Formoterol (Dulera 100 Mcg/5 Mcg Inhaler) 13 Gm Hfa.aer.ad 2 PUFFS IH BID Montelukast (Montelukast) 10 Mg Tablet 10 MG PO HS Multivitamin (Once Daily) 1 Each Tablet 1 EACH PO DAILY Omeprazole (Omeprazole) 40 Mg Capsule.dr 40 MG PO BIDAC Salmeterol Xinafoate (Serevent Diskus) 50 Mcg/Puff Inhaler 2 PUFFS INH BID Trazodone (Trazodone) 50 Mg Tablet 50 MG PO HS Trazodone (Trazodone) 50 Mg Tablet 50 MG PO HS Scheduled PRN Albuterol Neb Soln (Albuterol Neb Soln) 2.5 Mg/3 Ml Vial.neb 2.5 MG INHALATION QID PRN PRN For Shortness of Breath Albuterol Sulfate (Ventolin HFA Inhaler) 200 Puff/18 Gm Inhaler 2 PUFF INH q4-6 hours PRN PRN For Shortness of Breath Benzonatate (Benzonatate) 100 Mg Capsule 100 MG PO TID PRN PRN For Cough Butalbital/Acetamin/Caff 50-300-40 mg (Butalbital/Acetamin/Caff 50-300-40 mg) 1 Each Tablet 1 TAB PO Q6 PRN PRN Headache Carisoprodol (Soma) 350 Mg Tablet 350 MG PO BID PRN PRN MUSCLE SPASM Epinephrine (Epinephrine) 0.3 Mg/0.3 Ml Auto.injct Unknown Dose IJ prn PRN PRN For Anaphyllaxis Ibuprofen (Ibuprofen) 800 Mg Tablet 800 MG PO TID PRN PRN For Pain Loperamide (Loperamide) 2 Mg Capsule 2-4 MG PO BID PRN PRN For Diarrhea or Loose Stool Ondansetron (Zofran) 4 Mg Tablet 4 MG PO TIDWM PRN PRN For Nausea Sumatriptan Succinate (Imitrex) 50 Mg Tablet 50 MG PO PRN PRN PRN MIGRAINE Tramadol (Tramadol) 50 Mg Tablet 50 MG PO TID PRN PRN For Pain oxyCODONE (oxyCODONE) 5 Mg Capsule 5 MG PO Q4H PRN PRN For Pain General Time Seen by MD: 18:50 Chief Complaint Shortness of breath Hx Obtained From: Patient Arrived By: Walk-in Sudden in Onset?: Yes Onset Occurred: 1 - 4 hours ago Symptom Duration: Since onset Location: : Substernal Quality: Pressure Radiation: : Does not radiate Severity: Current: Moderate Past Medical History Past Medical History Notes: Admitted 09/2016 for CHF/Leg Edema Echocardiogram September 2016-technically difficult, EF estimated 6065% The pt was born a female but identifies as a male. 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 Eyes: Denies: Blurred left GI: Denies: Nausea, Vomiting Female: Denies: Dysuria Male: Denies Flank pain Neurologic: Denies: Abnormal movement Physical Exam Initial Vital Signs Vital Signs (First) Date Time Temp Pulse Resp B/P Pulse Ox O2 Delivery O2 Flow Rate FiO2 10/24/16 18:26 81 30 160/59 88 Nasal Cannula 6 Initial VS: Reviewed General/Constitutional: Awake, Alert Distress / Hydration: Positive: Distress moderate Appearance / Presentation: Positive: Obese, morbidly Neck: Atraumatic, Supple Resp Distress / Stridor: Positive: Resp distress moderate cyanotic hypoxic Cardiovascular: Heart rate NL, Regular rhythm, Heart sounds NL LOWER EXTREMITIES: bilateral lower extremity edema Skin: Atraumatic, Color NL, No rash, Warm, Dry Neurologic: Oriented X3, Speech NL Head / Eyes: Atraumatic, Normocephalic, PERRL, EOMI Psychiatric: Affect NL, Mood NL Interpretation & Diagnostics Lab Results Interpretation Result Diagram: 10/24/16183910/24/161839 Test 10/24/16 18:40 White Blood Count 7.0th/mm3 (3.8-10.1) Red Blood Count 4.67mil/mm3 (3.90-5.20) Hemoglobin 13.1g/dL (12.0-15.6) Hematocrit 43.1% (35.0-46.0) Mean Corpuscular Volume 92.3fL (81-100) Mean Corpuscular Hemoglobin 28.1pg (27.0-35.0) Mean Corpuscular Hemoglobin Concent 30.4% (32.0-37.0) Red Cell Distribution Width 22.2% (12.3-15.4) Platelet Count 194bil/L (150-400) Neutrophils (%) (Auto) 76.2% (40-74) Lymphocytes (%) (Auto) 17.6% (14-46) Monocytes (%) (Auto) 6.0% (4-12) Eosinophils (%) (Auto) 0% (0-5) Basophils (%) (Auto) 0.1% (0-3) D-Dimer 1.62mg/L FEU (<0.50) Sodium Level 142mEq/L (134-144) Potassium Level 4.7mEq/L (3.5-5.2) Chloride Level 100mEq/L (97-108) Carbon Dioxide Level 25mmol/L (18-29) Blood Urea Nitrogen 23mg/dL (6-24) Creatinine 1.19mg/dL (0.57-1.00) Estimat Glomerular Filtration Rate 70mL/min (>59) Glucose Level 142mg/dL (60-99) Lactic Acid Level 1.9mmol/L (0.4-2.0) Calcium Level 9.6mg/dL (8.5-10.1) Magnesium Level 2.2mg/dL (1.6-2.6) Total Bilirubin 0.8mg/dL (0.0-1.2) Aspartate Amino Transf (AST/SGOT) 28U/L (0-50) Alanine Aminotransferase (ALT/SGPT) 21U/L (0-32) Alkaline Phosphatase 65U/L (25-150) Troponin T < 0.010ug/L (0.0-0.011) Pro-B-Type Natriuretic Peptide 78.08pg/mL (0-249) Total Protein 7.2g/dL (6.4-8.4) Albumin 4.0g/dL (3.4-5.0) Procalcitonin 0.04ng/mL (0.00-0.08) Hold Pandya Top Tube Received (Received) ECG Interpretation Time: 18:46 Interpreted by: ED physician Normal ECG Interpretation: Normal rate (73), Normal sinus rhythm X-Ray Chest Interpretation Chest Xray Interpretation: IMPRESSION: Acute CHF. Dictated by: Keri Urias MD, PhD on 10/24/2016 at 19:09 Approved by: Keri Urias MD, PhD on 10/24/2016 at 19:11 View: Portable, 1 view Interpretation / Wet Read by: Interpret - Radiologist CT Chest Interpretation IMPRESSION: 1. Image quality is limited by patient motion artifact. 2. No definite evidence of pulmonary embolus. 3. Cardiomegaly. 3. Small bilateral pleural fluid collections. 4. Bilateral perihilar groundglass lung opacities which could represent CHF or viral pneumonitis. Please correlate with clinical data. 5. Right hilar and subcarinal mediastinal lymphadenopathy which could be reactive or neoplastic. Dictated by: Keri Urias MD, PhD on 10/24/2016 at 20:46 Approved by: Keri Urias MD, PhD on 10/24/2016 at 20:53 Study type: CT pulm angiogram Interpretation / Wet Read by: Interpret - Radiologist Re-Eval/Medical Decision Med Decision/Clinical Course Patient presents acutely ill with dyspnea. He is found to be cyanotic and hypoxic. He has relatively clear lung danielson except for some faint extra wheeze. He was aggressively treated with bronchodilators, steroids and antibiotics. Pulmonary emboli was high on the differential. CT angiogram however shows an atypical/pneumonitis pattern. Pleural effusions. It look like heart failure on the chest x-ray but his beta nitric peptide was less than 80. This is a very difficult case to sort out. Either way with the after mentioned treatments he is looking and feeling much better. His status settled into the mid 90s. We have not had to start BiPAP while we were prepared to do this. He will be admitted to the progressive care unit for definitive management. Re-Evaluation/Progress : Time of Eval: 19:33 Re-Evaluation/Progress Note: Discussed X-ray and plan for admit. Patient understands and agrees to plan. All questions were addressed. Consultation : Referral / Consult Name: Aram Grant MD Consulted With: Hospitalist Call Returned at: 21:27 Air Hammer Operator: Agrees with eval, Agrees with plan, Accepts admit Counseled Regarding: Diagnosis, Lab results, Need for admission Discharge & Departure Impression: Primary Impression: Bilateral pneumonia Pneumonia type: due to unspecified organism Lung location: unspecified part of lung Qualified Code: J18.9 - Pneumonia, unspecified organism Additional Impressions: Hypoxia Pleural effusion Respiratory distress Disposition: ADMITTED TO HOSPITAL Discharge Condition All VS Reviewed: Yes Condition: Stable Referrals: [facility] (PCP) Crit Care Except Billable Proc Time Spent: 75-104 minutes Services Performed: Patient management by me, Time spent at bedside, Reviewing test results, Reviewing imaging, Discussing patient care, Documentation in record Scribe Attestation Portions of this note were transcribed by Monique Horner. I, Dr. Elliott personally performed the history, physical exam and medical decision-making; I reviewed and confirmed the accuracy of the information in the transcribed note. Signed by: Errol Salcido, 10/24/16 Alex Elliott DO Oct 24, 2016 18:50 Marely Horner Oct 24, 2016 18:56
[2016-10-24 18:54] LABS: BASOPHILS % (AUTO) 0.1 % (0-3); Mean Corpuscular Hemoglobin 28.1 pg (27.0-35.0); NEUTROPHILS % (AUTO) 76.2 % (40-74); Platelet Count 194 bil/L (150-400)
--- NOTE | 2016-10-24 19:12 | DRSVH ---
PROCEDURE: X-RAY CHEST ONE VIEW, PORTABLE ([id number]) INDICATIONS: chest pain TECHNIQUE: One view of the chest was acquired. COMPARISON: [facility], CR, XR CHEST 1VW (PORTABLE), 10/15/2016, 22:13. FINDINGS: Surgical changes and devices: None. Lungs and pleura: No pleural effusions or pneumothorax. There is cephalization of pulmonary vasculat ure and perihilar opacities consistent with CHF. Mediastinum: Mediastinal contours appear normal. Heart size is enlarged. Bones and chest wall: No suspicious bony lesions. Overlying soft tissues appear unremarkable. IMPRESSION: Acute CHF. Dictated by: Keri Urias MD, PhD on 10/24/2016 at 19:09 Approved by: Keri Urias MD, PhD on 10/24/2016 at 19:11
[2016-10-24 19:15] VITALS: PULSE 99; RESP 19; O2SAT 94
[2016-10-24 19:28] LABS: TROPONIN T < 0.010 ug/L (0.0-0.011)
[2016-10-24] MEDS ORDERED: Nitroglycerin 2% 1 Gm Ointment TOPICAL ONE (19:30)
[2016-10-24 19:35] LABS: Magnesium 2.2 mg/dL (1.6-2.6)
[2016-10-24] MEDS ORDERED: Ondansetron 2 mg/mL 2 mL Inj ONE (19:39)
[2016-10-24 20:05] VITALS: BP 147/51; PULSE 74; RESP 28; O2SAT 95
[2016-10-24] MEDS ORDERED: MethylprednisoLONE Sodium Succinate 62.5 mg/mL 2 mL Inj IVPUSH ONE (20:35)
[2016-10-24] MEDS ORDERED: Piperacillin-Tazo 3.375 Gm Inj 3.375 GM in Dextrose 5% Minibag Plus 50 ML IV ONE (20:35)
--- NOTE | 2016-10-24 20:55 | DRSVH ---
PROCEDURE: CT ANGIO CHEST PULMONARY EMBOLISM ([id number]) INDICATIONS: respiratory distress, hypoxia TECHNIQUE: After the administration of intravenous contrast, 2 mm thick sections acquired from the pulmonary api danielle to the posterior costophrenic angles. 3-dimensional maximum intensity projection (MIP) coronal a nd sagittal reformats were then acquired through the thorax. For radiation dose reduction, the follo wing was used: automated exposure control, adjustment of mA and/or kV according to patient size. COMPARISON: None. FINDINGS: Image quality: Limited by patient body habitus. Pulmonary arteries: Pulmonary arteries are normal in size, and demonstrate no intraluminal filling d efects to suggest central pulmonary embolism. Lungs and pleura: Atelectasis noted in the lungs bilaterally. Lung volumes are low likely related t o patient body habitus. Groundglass opacities with bilateral perihilar distribution noted which coul d represent viral pneumonitis versus CHF. Small bilateral pleural fluid collections noted. No pneum othorax. Central and peripheral airways are patent. Mediastinum: Heart size is enlarged, without pericardial effusion. Enlarged right hilar and subcarin al mediastinal lymph nodes are noted. Thoracic aorta is normal in caliber and enhancement. Esophagu s is normal in caliber, without hiatal hernia. Bones and chest wall: No suspicious bony lesions. Ribs and thoracic spine appear intact throughout. Thyroid gland is within normal limits where visualized. No axillary or supraclavicular adenopathy. Abdomen: Visualized upper abdominal solid organs appear normal in the early arterial phase of enhanc ement. IMPRESSION: 1. Image quality is limited by patient motion artifact. 2. No definite evidence of pulmonary embolus. 3. Cardiomegaly. 3. Small bilateral pleural fluid collections. 4. Bilateral perihilar groundglass lung opacities which could represent CHF or viral pneumonitis. P lease correlate with clinical data. 5. Right hilar and subcarinal mediastinal lymphadenopathy which could be reactive or neoplastic. Dictated by: Keri Urias MD, PhD on 10/24/2016 at 20:46 Approved by: Keri Urias MD, PhD on 10/24/2016 at 20:53
[2016-10-24] MEDS ORDERED: 0.9% Sodium Chloride 1,000 ML IV SCH (21:59)
[2016-10-24] MEDS ORDERED: Polyethylene Glycol (PEG) 17 Gm Powder PO PRN (22:00)
[2016-10-24] MEDS ORDERED: Alum-Mag Hydrox-Simeth 30 mL Suspension PO PRN (22:00)
[2016-10-24] MEDS ORDERED: Glucose 40% Oral Gel 15 Gm Tube PO PRN (22:10)
[2016-10-24 22:40] VITALS: BP 134/62; PULSE 74; RESP 20; O2SAT 96
[2016-10-24 23:25] VITALS: PULSE 72
[2016-10-24 23:35] VITALS: BP 120/67; PULSE 68; RESP 20; O2SAT 92
[2016-10-24] MEDS: Insulin LISPRO 300 Unit/3 mL Inj SUBQ SCH (23:59)
[2016-10-25] VITALS (15 sets, daily range): BP systolic 120–159; BP diastolic 52–81; PULSE 60–98; RESP 20–24; O2SAT 93–98
--- NOTE | 2016-10-25 00:14 | PCM.HPMED ---
Subjective Date of Service Oct 24, 2016 Primary Provider: Admitting Physician: [facility] Attending Physician: Admit Status: From the Emergency Department, Full Admit Chief Complaint: Dyspnea. . History of Present Illness: Thai Yin is a 46-year-old transgender, who identifies as male, with past medical history significant for asthma, oxygen dependent, lymphedema, hypothyroidism, diabetes mellitus type II, non-insulin using, with neuropathy and super obesity who presented to [facility] emergency department complaining of increasing dyspnea. The patient reports that he came to the emergency department for worsening shortness of breath with sharp chest pain upon inspiration and increased swelling in his abdomen and legs. He reports that he has a chronic cough but that he has had increased sputum production that is brown in color. He has associated abdominal pain with breathing, headache, sore throat, chills and nausea. He also endorses chronic difficulty with urination, constipation, orthopnea, and paroxysmal nocturnal dyspnea. He has been approved and is currently awaiting Trilogy for obstructive sleep apnea and hypoventilation obesity syndrome. He denies fevers, vomiting, diarrhea and dysuria. Vital signs in the ER: Pulse 81. Respiratory rate 30. Blood pressure 160/59. Pulse ox 88% on 6 L nasal cannula. He was given in the ED Zosyn IV 3.375 g 1, methylprednisolone IV 125 mg 1, ondansetron IV 4 mg 1, nitroglycerin paste 1 inch topically, and DuoNeb 1. PCP Dr. Lane at [facility]. . Review of Systems: A comprehensive review of systems was conducted with the patient and found to be negative except as above in the History of Present Illness. . Allergies Coded Allergies: Honey Bee (Verified Allergy, Severe, Anaphylaxis, 10/24/16) "stop breathing,and quivering" honey (Verified Allergy, Severe, Anaphylaxis, 10/24/16) azithromycin (Verified Allergy, Intermediate, emesis, 10/24/16) haloperidol (Verified Allergy, Intermediate, confusion, 10/24/16) Uncoded Allergies: ZPak (Allergy, Severe, 10/25/16) Diarrhea, hives redwood tree (Allergy, Unknown, Hives, 10/01/16) Home Medications Advair 1 puff inhaled twice a day. Albuterol nebs 4 times a day. Aspirin 81 mg daily. Atorvastatin 80 mg daily at bedtime. Dulera 2 puffs inhaled twice a day. EpiPen Fioricet as needed for migraine. Ferrous sulfate 325 mg daily. Fexofenadine 180 mg daily. Fluoxetine 40 mg daily. Flonase one spray intranasally twice a day Furosemide 20 mg twice a day Gabapentin 300 mg 3 times a day. Glyburide 2.5 mg twice a day before meals. Ibuprofen 800 mg 3 times a day as needed for pain. Levothyroxine 300 g daily. Loperamide 2-4 mg twice a day as needed for diarrhea. Metformin 500 mg twice a day with meals. Montelukast 10 mg daily at bedtime. Multivitamin daily. Omeprazole 40 mg twice a day before meals. Ondansetron 4 mg 3 times a day with meals. Oxycodone 5 mg every 4 hours as needed for pain. Soma 350 mg twice a day as needed for muscle spasm. Tessalon Perles 100 mg 3 times a day. Tramadol 50 mg 3 times a day as needed for pain. Trazodone 50 mg daily at bedtime. Testosterone injections every 2 weeks. Vitamin D3 1000 international units daily. . PMH 1. Asthma oxygen dependent. 2. Diabetes mellitus type II, non-insulin using, with complication of neuropathy. 3. Transgender on HRT. 4. Lymphedema. 5. Hypothyroidism. 6. Super obesity. 7. Chronic pain with opiate habituation. 8. Hyperlipidemia. 9. GERD. 10. Anxiety with history of panic attack. 11. Migraine headaches. 12. CHIDI. 13. Obesity hypoventilation syndrome. 14. Insomnia. . Surgical History 1. Right knee arthroscopy. 2. Right elbow repair as a child. 3. Penectomy. 4. Benign sternal tumor removal. . Family History Mother with diabetes mellitus type II and at age 54 from [place]. Father who has diabetes mellitus type II, black lung from coal mining, and [place] x 2. . Social History Hx Alcohol Use: No Hx Substance Use: No Hx Tobacco Use: Yes Smoking Status: Former Smoker (2 ppd x 30 years, quit 02/2016) Additional Information The patient is . He has a significant other with plans to wed in the future. He has 4 biological children who are healthy. He is currently disabled. . Exam Vital Signs Vital Sign - Last Date Time Temp Pulse Resp B/P Pulse Ox O2 Delivery O2 Flow Rate FiO2 10/24/16 20:05 74 28 147/51 95 Venturi Mask 6 Exam General: Middle-aged male in no acute distress, mildly obese, appropriately interactive. HEENT: Normocephalic, atraumatic. External ears without defect. Pupils equal, round, and reactive to light. Anicteric sclerae, moist conjunctivae, and no lid lag. Oropharynx free of erythema and cobble stoning with moist mucosa. Neck: Supple with full range of motion. No jugular venous distension but exam limited by body habitus. No lymphadenopathy or thyromegaly. Cardiovascular: Distant heart sounds with regular rate and rhythm without murmurs, rubs, or gallops appreciated but exam is limited by body habitus. Pulmonary: Diminished breath sounds bilaterally but clear to auscultation without crackles, wheezes, or rhonchi but exam is limited by body. Poor respiratory effort with use of accessory muscles. Abdomen: Soft, nontender, nondistended, bowel sounds present. No hepatosplenomegaly or masses appreciated. Extremities: Bilateral lower extremity lymphedema with dependent edema up to mid abdomen. No clubbing or cyanosis. Skin: Bilateral lower extremity erythema with scabbed over wounds on the bilateral legs. Neurological: Cranial nerves grossly intact. Normal muscle strength, tone, and bulk. Normal speech. Psychiatric: Patient is anxious and becomes tearful during the interview but is pleasant and cooperative. Alert and oriented to person, place, and time. . Lab and Diagnostics Labs Item Value Date Time D-Dimer 1.62 mg/L FEU H 10/24/161839 Item Value Date Time Lactic Acid Level 1.9 mmol/L 10/24/161839 Calcium Level 9.6 mg/dL 10/24/161839 Magnesium Level 2.2 mg/dL 10/24/161839 Total Bilirubin 0.8 mg/dL 10/24/161839 Aspartate Amino Transf (AST/SGOT) 28 U/L 10/24/161839 Alanine Aminotransferase (ALT/SGPT) 21 U/L 10/24/161839 Alkaline Phosphatase 65 U/L 10/24/161839 Troponin T < 0.010 ug/L 10/24/161839 Pro-B-Type Natriuretic Peptide 78.08 pg/mL 10/24/161839 Total Protein 7.2 g/dL 10/24/161839 Albumin 4.0 g/dL 10/24/161839 Procalcitonin 0.04 ng/mL 10/24/161839 Result Diagram: 10/24/16183910/24/161839 Microbiology Blood culture 2 pending. . X-Rays, CTs and MRIs CT ANGIO CHEST PULMONARY EMBOLISM IMPRESSION: 1. Image quality is limited by patient motion artifact. 2. No definite evidence of pulmonary embolus. 3. Cardiomegaly. 3. Small bilateral pleural fluid collections. 4. Bilateral perihilar groundglass lung opacities which could represent CHF or viral pneumonitis. Please correlate with clinical data. 5. Right hilar and subcarinal mediastinal lymphadenopathy which could be reactive or neoplastic. Dictated by: Keri Urias MD, PhD on 10/24/2016 at 20:46 Approved by: Keri Urias MD, PhD on 10/24/2016 at 20:53 X-RAY CHEST ONE VIEW, PORTABLE IMPRESSION: Acute CHF. Dictated by: Keri Urias MD, PhD on 10/24/2016 at 19:09 . 12-lead ECG EKG: Sinus rhythm, heart rate 73, normal axis, normal intervals, low voltage throughout precordial leads, poor R-wave progression, no pathological Q waves or acute ischemic changes such as ST elevation or depression. . Cardiac Echo Impressions Echocardiogram Interpretation Summary 10/02/2016: The study quality was technically difficult. A contrast injection of Definity was performed to improve assessment of LV function. The ejection fraction is estimated to be 60-65%. There is mild tricuspid regurgitation. The right ventricular systolic pressure is estimated at 46 mmHg assuming a right atrial pressure of 8 mm Hg. Electronically signed by: Brent Woodard on Reading Physician:10/02/2016 12:10 PM . Assessment & Plan Thai Yin is a 46-year-old transgender, who identifies as male, with past medical history significant for asthma, oxygen dependent, lymphedema, hypothyroidism, diabetes mellitus type II, non-insulin using, with neuropathy and super obesity who presented to [facility] emergency department complaining of increasing dyspnea. 1. Acute hypoxemic respiratory failure, present on admission. Active. - The patient presented cyanotic, severely dyspneic, with pleuritic chest pain. Differential diagnosis includes PE versus CHF exacerbation versus bilateral pneumonia. - Patient is on 4L oxygen at baseline and may titrate as needed. - Patient approved and awaiting Trilogy. - Ordered Duonebs 4 times a day while awake and albuterol nebs every 2 hours as needed for shortness of breath. - Patient received Solu-Medrol 125 mg IV 1 in the ED. Will hold off on giving additional steroids as patient's breathing has stabilized. 2. Possible heart failure with preserved ejection fraction exacerbation, present on admission. Active. - The patient has a history of CHF with underlying pulmonary hypertension due to sleep apnea and obesity hypoventilation syndrome currently awaiting at home Trilogy. - Recent echo showed an increased E/E' ratio suggestive of diastolic dysfunction. Ordered limited echocardiogram to asses for CHF exacerbation or worsening RV strain. - Chest x-ray consistent with fluid overload and CHF, as above. - EKG normal without signs of ischemia and troponin negative, therefore, do not believe that pleuritic chest pain is cardiac in origin. - Start diuresis with Lasix 40 twice daily. Creatinine 1.19 which appears to be the patient's baseline. - Ordered daily standing weights, strict I&O's, 2 L fluid restriction, and CHF teaching. 3. Possible pulmonary embolism, present on admission. Active. - The patient is on HRT, is super obese, and endorses decreased mobilization recently which makes him moderate risk for PE. - D-dimer elevated at 1.62. - CTA did not demonstrate definitive PE, however, study was of poor quality due to body habitus and motion artifact, as above. - Ordered therapeutic lovenox 160 mg twice daily. - Ordered limited echocardiogram to asses for CHF exacerbation or worsening RV strain to suggest PE. 4. Possible bilateral community-acquired pneumonia, present on admission. Active. - The patient presented with severe dyspnea, cyanosis, and pleuritic chest pain. The patient has been afebrile and infectious markers negative. - Chest x-ray consistent with fluid overload and CHF, as above. - CTA demonstrated bilateral infiltrate without definitive PE, however, study was of poor quality due to body habitus and motion artifact, as above. - Lactic acid borderline normal. - Pro-calcitonin normal at 0.04. Will recheck in the morning. - Ordered complete pneumonia workup including blood cultures 2, sputum Gram stain and culture, strep pneumoniae and legionella urine antigens, and respiratory viral PCR, pending. - Ordered MRSA screen. - Received 1 L of NS in the ED. We will be conservative with fluid hydration as patient has a history of CHF. - Tylenol as needed for fever and pain. - Patient received Zosyn 3.375 g in the ED and will continue pending infectious work-up - Continue Tessalon Perles 100 mg 3 times a day. Chronic problems: 5. Chronic bilateral lymphedema, present on admission. Stable. - Ordered wound care consultation. - Ordered physical therapy. 6. Hypothyroidism, present on admission. Stable. - Continue levothyroxine 300 g daily. 7. Asthma, present on admission. Stable. - Continue home inhalers including Dulera 2 puffs inhaled twice a day and Advair 1 puff inhaled twice a day. - Continue fexofenadine 180 mg daily, Flonase one spray intranasally twice a day , and montelukast 10 mg daily at bedtime. - Ordered Duonebs 4 times a day while awake and albuterol nebs every 2 hours as needed for shortness of breath. - Continue supplemental oxygen as needed. Baseline oxygen requirement 4L. 8. Diabetes mellitus type II, non-insulin using, with neuropathy, present on admission. Stable. - Hemoglobin A1c 8.1% 10/01/2016. - Held metformin and glyburide. - Ordered heart healthy and carbohydrate consistent diet. - Ordered low-dose correctional scale insulin. - Continue Gabapentin 300 mg 3 times a day. 9. Anxiety with panic attacks, present on admission. Stable. - Continue fluoxetine 40 mg daily. 10. Transgender, present on admission. Stable. - Patient is on testosterone therapy. 11. Super obesity, present on admission. Stable. - BMI 68.5. - Ordered physical therapy. 12. Chronic pain with opiate habituation, present on admission. Stable. - Continue Soma 350 mg twice daily as needed for muscle spasm and oxycodone 5 mg every 4 hours as needed for pain. - Ordered Colace 200 mg twice a day scheduled for opiate-induced constipation. May consider Relastor in future if constipation is persistent. 13. GERD, present on admission. Stable. - Continue Protonix 40 mg twice a day before meals. 14. Hyperlipidemia, present on admission. Stable. - Continue aspirin 81 mg and atorvastatin 80 mg daily at bedtime. 15. Insomnia, present on admission. Stable. - Continue trazodone 50 mg daily at bedtime. 16. Migraine headaches, present on admission. Stable. - Continue Fioricet every 6 hours as needed for migraine headaches. Counseled the patient regarding medication and potential rebound migraine headaches with use. PRN antiemetics: Zofran and Maalox. PRN bowel regimen: Senna and MiraLAX. PRN analgesics: Tylenol and Oxycodone. Patient is admitted under inpatient status with expected length of stay greater than 2 midnights due to severity of presenting symptoms, risk of adverse event, and complexity of treatment plan. . VTE Prophylaxis: Sub-Q Enoxaparin (therapeutic enoxaparin ), SCDs Resuscitation Status: CPR: Attempt Resuscitation Attending Statement The patient was seen and examined together with Dr. Mcmullen on 10/24 and I agree with the history, exam and plan as outlined in the note above. copies to: Lauren Lane Georgia M DO Oct 24, 2016 21:37 Aram Grant MD Oct 25, 2016 02:35
[2016-10-25] MEDS ORDERED: Heparin 5,000 Unit/mL Inj SUBQ SCH (00:30)
[2016-10-25] MEDS ORDERED: 0.9% Sodium Chloride 250 ML ONE (01:05)
[2016-10-25] MEDS: Piperacillin-Tazo 3.375 Gm Inj 3.375 GM in Dextrose 5% Minibag Plus 50 ML IV SCH ×2 (01:30→08:55)
[2016-10-25] MEDS ORDERED: MethylprednisoLONE Sodium Succinate 62.5 mg/mL 2 mL Inj IVPUSH SCH (02:30)
[2016-10-25 03:53] LABS: BASOPHILS % (AUTO) 0 % (0-3); EOSINOPHILS % (AUTO) 0 % (0-5); MONOCYTES % (AUTO) 1.5 % (4-12); Mean Corpuscular Hemoglobin 28.4 pg (27.0-35.0); NEUTROPHILS % (AUTO) 91.2 % (40-74); Platelet Count 178 bil/L (150-400)
--- NOTE | 2016-10-25 06:28 | NUR ---
Admit/Pain/O2/GI Pt admitted to room 2030 a little after 2300, MD in room to assess on arrival. Pt able to stand and walk to BR w/ FWW and mostly steady gait, pt on 5L oxymask at the time and tolerating well, no complaints of distress when up to BR though did appear more dyspneic w/ exertion. Pt A&O and able to answer admission questions and med rec done per pt med list and interview. While MD in room pt stated headache/abdominal and chest pain, per MD EKG normal and trop negative. Later w/ further nurse assessment pt c/o only headache and denied other pain but stated he get migraines and asked for home regimen. MD explained preference for sumatriptan over Fioricet, pt reluctant at first but then accepting after further explanation. Pt also given home trazodone per request, was noted to get very sleepy and started dosing off while being spoken to. Pt would wake and continue to c/o of headache. Pt later went from cough to bed and fell asleep w/ no further complaints. TREASURY DIRECTOR placed for better O2 monitoring. Pt refused oxymask in favor of NC and needed 6L to maintain O2 sats WNL. Later pt titrated down to 4.5L NC sats mid to high 90s while pt asleep at this time. Pt c/o constipation/nausea, was able to eat before bed w/ no further complaints. Senna ordered for morning, pt had mod bowel movement but w/ difficulty. Addendum: 10/26/16 at 0645 by VANI RAMIREZ RN CPAP/BIPAP ordered as pt wished to have this on while asleep d/t concern over his CHIDI, but pt also not wanting oxymask and stated he is claustrophobic. Explained to pt that oxygenation was good on O2 NC, and pt would be monitored continuously w/ TREASURY DIRECTOR for any desats. Pt in no respiratory distress at time and so kept nasal cannula on overnight instead. made aware.
[2016-10-25] MEDS: Albuterol-Ipratropium 3 mL Inhalation Solution NEB SCH ×4 (08:07→19:52)
[2016-10-25] MEDS ORDERED: Fluticasone-Salmeterol 100-50 Inhaler INHALATION SCH (08:30)
[2016-10-25] MEDS ORDERED: Furosemide 10 mg/mL 4 mL Inj IVPUSH SCH (08:30)
[2016-10-25] MEDS: Fluticasone-Salmeterol 100-50 Inhaler INHALATION SCH ×2 (08:54→21:14)
[2016-10-25] MEDS: Fluticasone 0.05% 15 Spray/2 Gm 16 Gm Nasal Spray NASAL SCH ×2 (08:56→21:14)
[2016-10-25] MEDS: Insulin LISPRO 300 Unit/3 mL Inj SUBQ SCH ×4 (08:57→21:22)
[2016-10-25] MEDS: Pantoprazole 40 mg ER24 Tablet PO SCH ×2 (08:58→16:33)
--- NOTE | 2016-10-25 10:13 | DRSVH ---
[facility] [address] [place] [address] Echocardiogram Report Name: LANDY ACOSTA FStudy Date: 10/25/2016 Hospital Exam Location: [facility] Gender: Female : 1970 Age: 46 yrs BP: 127/67 mmHg Reason For Study: RV strain Ordering Physician: Performed By: Berlin Draper Referring Physician: SERENITY GASCA Interpretation Summary The right ventricle grossly appears normal in size with probable normal systolic function. No significant change since prior study. The right ventricular systolic pressure is estimated at 46 mmHg assuming a right atrial pressure of 15 mm Hg. Compared to the prior echo exam, there has been no change in the severity of pulmonary hypertension. Procedure: A two-dimensional transthoracic echocardiogram with color flow and Doppler was performed in limited views only. Definity was used to help assess RV function. Comparison is made with the echocardiogram of 10/25/16. The patient was in normal sinus rhythm during the exam. Right Ventricle: The right ventricle grossly appears normal in size with probable normal systolic function. Tricuspid Valve: There is moderate tricuspid regurgitation. The right ventricular systolic pressure is estimated at 46 mmHg assuming a right atrial pressure of 15 mm Hg. Compared to the prior echo exam, there has been no change in the severity of pulmonary hypertension. Great Vessels: The IVC is dilated (diameter is greater than 2.1 cm) and it collapses less than 50% with a sniff. This suggests a high right atrial pressure of 15 mm Hg. MMode/2D Measurements & Calculations IVC diam: 2.8 cm Doppler Measurements & Calculations TR max deni: 279.7 cm/sec TR max P.3 mmHg Reading Physician:ANNA
--- NOTE | 2016-10-25 10:31 | NUR ---
Isolation Per MD, pt can come off isolation. Pt may also stop zosyn.
--- NOTE | 2016-10-25 10:37 | NUR ---
Lovenox Per MD to not give 1030 lovenox dose this am.
--- NOTE | 2016-10-25 10:46 | NUR ---
Inpatient Wound Nurse Patient is familiar to [facility] as he was discharged last week. Patient stated that skin breakdown continues in skin folds of popliteal space and panniculus. Patient was instructed to use 8x3 inch Telfa pads behind knees and Mepilex sheet foam cut into long strips under abdominal fold. Patient was reminded that routine skin care instructions are unchanged from last week's inpatient visit, which is that skin should be cleansed, blotted dry, sprinkled with Nystatin powder or Nystatin ointment thoroughly applied and rubbed in, and then absorbers placed, such as Telfas and Mepilex. Patient admitted that he stopped following instructions since discharge last week. Patient's primary RN was given same instructions and she was already aware that skin hygiene can be completed by patient with staff assistance PRN. BLEs continue edematous but no open wounds or signs of cellulitis, no scaling, very minimal dryness; no wraps are indicated at this time, patient aware that he should follow up for lymphadema treatment as soon as possible. Patient's needs at this time are focused on hygiene and skin care. [facility] will not follow unless specific wounds are identified.
--- NOTE | 2016-10-25 14:34 | NUR ---
Social Work: Initial Assessment/Multidisciplinary Rounds D: Per EMR review, pt is a 46 year old male admitted for BLL Pneumonia with PE. Pt is [employer] with HS supplement; pt has no LTC or VA benefits. PCP Is through the [facility]. NOK is Genie Rhodes, significant other, . Advanced directives information declined. Readmit score not entered at this time. Pt discussed in multidisciplinary rounds. Pt is on day one of stay; capacity for self care and d/c needs addressed. No concerns or barriers to d/c identified. FRUIT INSPECTOR met with the patient at bedside. Sw role explained; contact information and dcp checklist provided. Pt lives in [place] with his s/o. Pt is open with [facility] for RN, PT and uses a cane and 4WW for ambulation. Pt states his s/o also has two FWW available for use as well. Pt has home 02 through [facility]. Pt lives in a single story home with 0 steps to enter. Pt does not drive and relies on his s/o for transportation. Pt anticipates discharging home with resumed [facility] for RN and PT. Pt reports that at home he uses 4L 02 while resting and then bumps his 02 up to 8L for ambulation. Pt also states that overnight during hospitalization the pt's brother or family member was adjusting this for him without RN or provider knowledge. FRUIT INSPECTOR informed attending resident of this. A: Pt who lives at home with his s/o P: Anticipate pt to discharge home via POV and resumed [facility] for RN PT if ordered by provider. FRUIT INSPECTOR to continue to follow to assess for discharge needs. ADARSH Escobar Addendum: 10/25/16 at 1447 by BALTA AUSTIN Amended: Links added.
--- NOTE | 2016-10-25 14:50 | PCM.PNMED ---
Subjective Date of Service Oct 25, 2016 Subjective Subjective: Patient is lying in bed on exam, every few minutes patient had twinges of back pain where the entire body tenses and the patient's face becomes red. This occurred multiple times during our visit. Patient also states that there have previously been problems with urinary retention and there was some concern for that this morning. However the patient was able to void twice with more than 400 mL of fluid out each time. A Allison catheter was ordered however placement of which will be withheld until the patient is in fact retaining fluid. Events Overnight: No acute events overnight. ROS: Complains of back pain, shortness of breath, chest pain. Denies fever/ chills, nausea/vomiting, headache, weakness, abdominal pain, increased swelling in hands or feet. Exam Vital Signs Vital Sign - Last Date Time Temp Pulse Resp B/P Pulse Ox O2 Delivery O2 Flow Rate FiO2 10/25/16 12:30 36.3 74 22 142/52 96 Nasal Cannula 4.00 Intake and Output 10/24/16 10/24/16 10/25/16 Cumulative From/Thru 15:00 23:00 07:00 10/24/16 20:04 - 10/25/16 06:24 Intake Total 120 ml 490 ml 610 ml Output Total 400 ml 400 ml Balance 120 ml 90 ml 210 ml Intake Oral 120 ml 400 ml 520 ml IV Total 90 ml 90 ml Output Urine Total 400 ml 400 ml # Voids 1 1 # Bowel Movements 1 1 Exam General: No acute distress HEENT: Normocephalic, atraumatic. External ears without defect. Pupils equal, round, and reactive to light and accommodation. Anicteric sclerae, moist conjunctivae. Cardiovascular: Regular rate and rhythm, + systolic murmur, rubs, or gallops appreciated Pulmonary: Minor wheezes auscultated throughout, fine crackles especially over the right lower lung, decreased breath sounds throughout. . Abdomen: Bowel tones present. Soft, morbidly obese nontender, nondistended. Extremities: Large, no clubbing, cyanosis, mild edema Skin: Normal temperature, turgor, and texture; no rash, ulcers, or subcutaneous nodules appreciated. Neurological: Cranial nerves grossly intact. Reflexes, coordination, and sensory function within normal limits. Normal muscle strength, tone, and bulk. Psychiatric: Normal affect. Alert and oriented to person, place, and time IVs and Medications IV Fluids 50 mL normal saline delivered with IV medications. Medications Reviewed: Medications were reviewed in detail Medications High-risk medications include: Tramadol Lab and Diagnostics Result Diagram: 10/25/16 0340 10/25/16 0831 Microbiology Blood culture 2 pending. . X-Rays, CTs and MRIs CT ANGIO CHEST PULMONARY EMBOLISM IMPRESSION: 1. Image quality is limited by patient motion artifact. 2. No definite evidence of pulmonary embolus. 3. Cardiomegaly. 3. Small bilateral pleural fluid collections. 4. Bilateral perihilar groundglass lung opacities which could represent CHF or viral pneumonitis. Please correlate with clinical data. 5. Right hilar and subcarinal mediastinal lymphadenopathy which could be reactive or neoplastic. Dictated by: Keri Urias MD, PhD on 10/24/2016 at 20:46 Approved by: Keri Urias MD, PhD on 10/24/2016 at 20:53 X-RAY CHEST ONE VIEW, PORTABLE IMPRESSION: Acute CHF. Dictated by: Keri Urias MD, PhD on 10/24/2016 at 19:09 . 12-lead ECG EKG: Sinus rhythm, heart rate 73, normal axis, normal intervals, low voltage throughout precordial leads, poor R-wave progression, no pathological Q waves or acute ischemic changes such as ST elevation or depression. . Cardiac Echo Impressions Echocardiogram Interpretation Summary 10/02/2016: The study quality was technically difficult. A contrast injection of Definity was performed to improve assessment of LV function. The ejection fraction is estimated to be 60-65%. There is mild tricuspid regurgitation. The right ventricular systolic pressure is estimated at 46 mmHg assuming a right atrial pressure of 8 mm Hg. Electronically signed by: Brent Woodard on Reading Physician:10/02/2016 12:10 PM . Echocardiogram interpretation summary 10/25/2016 The right ventricle grossly appears normal in size with probable normal systolic function. No significant change since prior study. The right ventricular systolic pressure is estimated at 46 mmHg assuming a right atrial pressure of 15 mm Hg. Compared to the prior echo exam, there has been no change in the severity of pulmonary hypertension. Reading Physician:AM Assessment & Plan Thai Yin is a 46-year-old transgender, who identifies as male, with past medical history significant for asthma, oxygen dependent, lymphedema, hypothyroidism, diabetes mellitus type II, non-insulin using, with neuropathy and super obesity who presented to [facility] emergency department complaining of increasing dyspnea. Acute hypoxemic respiratory failure, present on admission. Active. - The patient presented cyanotic, severely dyspneic, with pleuritic chest pain. Likely due to CHF exacerbation and obesity hypoventilation syndrome - Patient is on 4L oxygen at baseline and may titrate as needed. - Trilogy approval remains in question, we will be in communication with patient small animal caretaker to get this approved - Ordered Duonebs 4 times a day while awake and albuterol nebs every 2 hours as needed for shortness of breath. - Patient received Solu-Medrol 125 mg IV 1 in the ED. Will hold off on giving additional steroids as patient's breathing has stabilized. Diastolic congestive heart failure exacerbation, acute on chronic, present on admission. Active. - The patient has a history of CHF with underlying pulmonary hypertension due to sleep apnea and obesity hypoventilation syndrome currently awaiting at home Trilogy. - Echocardiogram repeated EF 60-65% results as above. - Chest x-ray consistent with fluid overload and CHF, as above. - EKG normal without signs of ischemia and troponin negative, therefore, do not believe that chest pain is cardiac in origin. - Start diuresis with Lasix 40mg IV twice daily. Creatinine 1.19 which appears to be the patient's baseline. - Ordered daily standing weights, strict I&O's, 2 L fluid restriction, and CHF teaching. Possible pulmonary embolism, present on admission. Active. - The patient is on hormone replacement therapy, is morbidly obese, and endorses decreased mobilization recently which makes for moderate risk of PE. - D-dimer elevated at 1.62. - CTA negative, however, study was of poor quality due to body habitus and motion artifact, as above. - Echocardiogram shows no increased right ventricular strain. - Lovenox discontinued in favor of subcutaneous heparin, Continue to monitor Possible bilateral community-acquired pneumonia, present on admission. Active. - The patient presented with severe dyspnea, cyanosis, and pleuritic chest pain. Pneumonia very unlikely at this point. The patient has been afebrile and infectious markers negative. - Chest x-ray consistent with fluid overload and CHF, as above. - CTA demonstrated bilateral infiltrate without definitive PE, however, study was of poor quality due to body habitus and motion artifact, as above. - Lactic acid normal. - Pro-calcitonin normal - Ordered complete pneumonia workup including blood cultures 2, - Sputum Gram stain and culture shows normal gabrielle - strep pneumoniae and legionella urine antigens, and respiratory viral PCR, negative - MRSA negative. - Tylenol as needed for fever and pain. - Zosyn discontinued 10/25 Chronic problems: Chronic bilateral lymphedema, present on admission. Stable. - Ordered wound care consultation. - Ordered physical therapy. Hypothyroidism, present on admission. Stable. - Continue levothyroxine 300 g daily. Asthma, present on admission. Stable. - Continue home inhalers including Dulera 2 puffs inhaled twice a day and Advair 1 puff inhaled twice a day. - Continue fexofenadine 180 mg daily, Flonase one spray intranasally twice a day , and montelukast 10 mg daily at bedtime. - Ordered Duonebs 4 times a day while awake and albuterol nebs every 2 hours as needed for shortness of breath. - Continue supplemental oxygen as needed. Baseline oxygen requirement 4L. Diabetes mellitus type II, non-insulin using, with neuropathy, present on admission. Stable. - Hemoglobin A1c 8.1% 10/01/2016. - Held metformin and glyburide. - Ordered heart healthy and carbohydrate consistent diet. - Ordered low-dose correctional scale insulin. - Continue Gabapentin 300 mg 3 times a day. Anxiety with panic attacks, present on admission. Stable. - Continue fluoxetine 40 mg daily. Transgender - Patient is on testosterone therapy. Morbid obesity, present on admission. Stable. - BMI 68.5. - Ordered physical therapy. Chronic pain with opiate habituation, present on admission. Stable. - Continue Soma 350 mg twice daily as needed for muscle spasm and oxycodone 5 mg every 4 hours as needed for pain. - Ordered Colace 200 mg twice a day scheduled for opiate-induced constipation. May consider Relastor in future if constipation is persistent. GERD, present on admission. Stable. - Continue Protonix 40 mg twice a day before meals. Hyperlipidemia, present on admission. Stable. - Continue aspirin 81 mg and atorvastatin 80 mg daily at bedtime. Insomnia, present on admission. Stable. - Continue trazodone 50 mg daily at bedtime. Migraine headaches, present on admission. Stable. - Continue Fioricet every 6 hours as needed for migraine headaches. Counseled the patient regarding medication and potential rebound migraine headaches with use. PRN antiemetics: Zofran and Maalox. PRN bowel regimen: Senna and MiraLAX. PRN analgesics: Tylenol and Oxycodone. Disposition: Patient will likely be discharged home after 1-2 nights for optimization of lung function. . VTE Prophylaxis: Sub-Q Enoxaparin (therapeutic enoxaparin ), SCDs Resuscitation Status: CPR: Attempt Resuscitation Attending Statement The patient was seen and examined together with Dr. Restrepo on 10/25/16 and I have added additional information to the note above. Sd Restrepo DO Oct 25, 2016 14:50 Tabitha James DO Oct 29, 2016 12:28 Resuscitation Status: CPR: Attempt Resuscitation Sd Restrepo DO Oct 25, 2016 14:50
--- NOTE | 2016-10-25 15:19 | NUR ---
spiritual care: pt request lengthy conversational visit. pt insightful about spiritual/emotional struggles and hopes. Pt shared his excessive worry about his health and also limitations he faces luna regarding caring for his fiance (who is partially blind) Pt very expressive about his church sita and his hopes for deepening it through prayer, scripture, etc. Pt expressive of past trauma and its ongoing impact on his life and health. Pt connected with counselor and offered that talking "really helps" Pt engaged easily and explored themes around resilience and change. Good family support. Supportive listening and prayer.
[2016-10-25] MEDS: Heparin 5,000 Unit/mL Inj SUBQ SCH (16:34)
[2016-10-25] MEDS: Furosemide 10 mg/mL 4 mL Inj IVPUSH SCH (16:45)
--- NOTE | 2016-10-25 16:56 | NUR ---
Chest pain 1535 Pt c/o 10/10 CP while seated on couch. Got up to BR with FWW. SOBE. Pt states CP worse up OOB. VSS tele stable. Pt assisted to bed. MD notified at 1540.EKG completed. ASA given this am. Nitro x1 given with stable BP prior and following with pain decreased to 4/10 after admin. Per MD to place nitro patch. Stat troponin to be drawn. Tele stable. Will continue to monitor. Addendum: 10/25/16 at 1841 by DAVID KAUFMAN RN Pt stable and up to couch. First troponin negative, pain controlled per pt. Respiratory providing breathing treatment. Will monitor.
[2016-10-25] MEDS: Albuterol 2.5 mg/3 mL Inhalation Solution NEB PRN (18:35)
[2016-10-25] MEDS: Butalbital-Acet-Caffeine Tablet PO PRN (21:15)
[2016-10-26] VITALS (12 sets, daily range): BP systolic 140–159; BP diastolic 64–92; PULSE 61–76; RESP 18–24; O2SAT 94–100
[2016-10-26] MEDS: Heparin 5,000 Unit/mL Inj SUBQ SCH ×3 (00:06→17:09)
[2016-10-26 02:44] LABS: Mean Corpuscular Hemoglobin 27.9 pg (27.0-35.0); Mean Corpuscular Volume 92.4 fL (81-100)
--- NOTE | 2016-10-26 03:22 | NUR ---
Anxiety/Tobacco/Pain/O2 With initial funeral planner pt appearing more anxious/agitated, was on phone and breathing fast, voiced anxiety and severe headache ("30/10"). Pt wished to take home fioricet which was given, refused Trazodone, was concerned it would interact w/ Prozac but wanted something else ordered for sleep. At that time pt told nursing he was chewing tobacco in room, this nurse explained this was not allowed and it needed to be locked outside of room, also explained concerns w/ tobacco use in hospital given current medical situation. Pt appeared upset, refused to part w/ tobacco and stated he would leave AMA if we needed to lock up his tobacco, also refused nicotine patch. Spoke w/ charge aide who stated if tobacco stayed w/ pt in room, pt at least needed to agree to not use this while in hospital. Pt refused to agree to this and wanted to leave AMA, took tele and [employer] off. MD notified. Both charge aide and MD in room for some time explaining risks of chewing tobacco at this time and explained that it was not allowed in hospital. Later pt agreed to have one time dose of Ativan to help him sleep and not leave AMA. After Fioricet pt stated headache still at 10/10, refused oxycodone but agreeable to tramodol. Also gave IV Ativan and Soma for muscle spasms per request. Pt refused to go to bed and preferred to stay on couch, but was agreeable to putting tele and [employer] back on. Pt very soon after fell asleep, not even waking when this nurse quietly fixed pt's nasal cannula. Sats mid to high 90s on 4L NC, monitored on BR[employer]. Ongoing care. Addendum: 10/26/16 at 0638 by VANI RAMIREZ RN Pt slept the rest of the night w/ no complaints. This morning got up from couch to get to bed and c/o 12/25 headache, given fioricet w/ good effect, pt back to sleep w/in minutes.
[2016-10-26] MEDS: Butalbital-Acet-Caffeine Tablet PO PRN (05:59)
[2016-10-26] MEDS: Albuterol-Ipratropium 3 mL Inhalation Solution NEB SCH ×4 (08:12→20:50)
[2016-10-26] MEDS: Furosemide 10 mg/mL 4 mL Inj IVPUSH SCH ×2 (08:25→17:09)
[2016-10-26] MEDS: Fluticasone-Salmeterol 100-50 Inhaler INHALATION SCH ×2 (08:25→21:22)
[2016-10-26] MEDS: Fluticasone 0.05% 15 Spray/2 Gm 16 Gm Nasal Spray NASAL SCH ×2 (08:25→21:22)
[2016-10-26] MEDS: Pantoprazole 40 mg ER24 Tablet PO SCH ×2 (08:27→17:09)
[2016-10-26] MEDS: Insulin LISPRO 300 Unit/3 mL Inj SUBQ SCH ×4 (08:28→22:00)
--- NOTE | 2016-10-26 09:15 | NUR ---
Tobacco MD discussed with pt expectations re: chewing tobacco. Pt to not chew. Will monitor for further use. Pt anxious this am and discussed concerns with care team. VSS. will continue to monitor. Refusing oxycodone for pain management needs. Appears more comfortable and relaxed at lunch but maintains low appetite.
--- NOTE | 2016-10-26 15:02 | NUR ---
spiritual care: follow up conversational visit. pt very sleepy. shared his experiences with expressing his desire to have chewing tobacco and the related anxiety about interaction with staff. He shared his understanding of staff concern, but also that it is part of his gender id/coping. Pt reported about coby's visit today and general medical plan. blessing ; will attempt to return later for visit when less sleepy. Addendum: 10/26/16 at 1728 by DONALD THAPA CM conversational visit. pt reflected on his qualities: including sita, relationships and ways he karmen with health, id, social and other challenges. Pt repeatedly expressive of his devotion to coby, his frustration with his current health conditions, their complexity. he expressed hopes of increasing mobility. prayer.
--- NOTE | 2016-10-26 18:44 | NUR ---
Status Patient VSS this evening, continues on 4L NC with sats in mid 90s. MD made aware of minimal bright red blood on evening stool after straining, to give bedtime senna, no other orders. Will monitor. Pt emotional today, MD aware. To continue diuresis. Pt re-educated regarding fluid restriction multiple times today. Needs reinforcement.
--- NOTE | 2016-10-26 20:28 | PCM.PNMED ---
Subjective Date of Service Oct 26, 2016 Subjective Subjective: Patient sitting up in the room on exam, states that he remains short of breath and that he is overly emotional due to this being the anniversary of his first 's passing. Events Overnight: Patient was extremely agitated overnight. Nurses found that the patient was chewing tobacco and attempted to confiscate this, however the patient refused. The patient stated that this was the only way to cease cravings for smoking. The patient was offered various sources for nicotine cravings including lozenges, gum, nicotine patch. The patient states that none of these methods are acceptable. ROS: Shortness of breath, anxiety, chest pain. Denies fever/chills, nausea/ vomiting, headache, weakness, increased swelling in hands or feet. Exam Vital Signs Vital Sign - Last Date Time Temp Pulse Resp B/P Pulse Ox O2 Delivery O2 Flow Rate FiO2 10/26/16 20:13 37.0 61 22 140/85 96 Nasal Cannula 4.00 Intake and Output 10/25/16 10/25/16 10/26/16 Cumulative From/Thru 15:00 23:00 07:00 10/24/16 20:04 - 10/25/16 18:46 Intake Total 1400 ml 2010 ml Output Total 1950 ml 2350 ml Balance -550 ml -340 ml Intake Oral 1400 ml 1920 ml IV Total 90 ml Output Urine Total 1950 ml 2350 ml # Voids 1 # Bowel Movements 1 2 Exam General: No acute distress HEENT: Normocephalic, atraumatic. External ears without defect. Pupils equal, round, and reactive to light and accommodation. Anicteric sclerae, moist conjunctivae. Cardiovascular: Regular rate and rhythm, systolic murmurs, no rubs, or gallops appreciated Pulmonary: Minor wheezes auscultated throughout, fine crackles especially over the right lower lung, decreased breath sounds throughout. . Abdomen: Bowel tones present. Soft, morbidly obese nontender, nondistended. Extremities: Large, no clubbing, cyanosis, mild edema Skin: Normal temperature, turgor, and texture; no rash, ulcers, or subcutaneous nodules appreciated. Neurological: Cranial nerves grossly intact. Reflexes, coordination, and sensory function within normal limits. Normal muscle strength, tone, and bulk. Psychiatric: Patient is teary-eyed, dramatic and excessively emotional. Alert and oriented to person, place, and time IVs and Medications Medications Reviewed: Medications were reviewed in detail Medications High risk medications include: Ativan Soma Lab and Diagnostics Result Diagram: 10/26/16 0230 10/26/16 0230 Microbiology Blood culture 2 pending. . X-Rays, CTs and MRIs CT ANGIO CHEST PULMONARY EMBOLISM IMPRESSION: 1. Image quality is limited by patient motion artifact. 2. No definite evidence of pulmonary embolus. 3. Cardiomegaly. 3. Small bilateral pleural fluid collections. 4. Bilateral perihilar groundglass lung opacities which could represent CHF or viral pneumonitis. Please correlate with clinical data. 5. Right hilar and subcarinal mediastinal lymphadenopathy which could be reactive or neoplastic. Dictated by: Keri Urias MD, PhD on 10/24/2016 at 20:46 Approved by: Keri Urias MD, PhD on 10/24/2016 at 20:53 X-RAY CHEST ONE VIEW, PORTABLE IMPRESSION: Acute CHF. Dictated by: Keri Urias MD, PhD on 10/24/2016 at 19:09 . 12-lead ECG EKG: Sinus rhythm, heart rate 73, normal axis, normal intervals, low voltage throughout precordial leads, poor R-wave progression, no pathological Q waves or acute ischemic changes such as ST elevation or depression. . Cardiac Echo Impressions Echocardiogram Interpretation Summary 10/02/2016: The study quality was technically difficult. A contrast injection of Definity was performed to improve assessment of LV function. The ejection fraction is estimated to be 60-65%. There is mild tricuspid regurgitation. The right ventricular systolic pressure is estimated at 46 mmHg assuming a right atrial pressure of 8 mm Hg. Electronically signed by: Brent Woodard on Reading Physician:10/02/2016 12:10 PM . Echocardiogram interpretation summary 10/25/2016 The right ventricle grossly appears normal in size with probable normal systolic function. No significant change since prior study. The right ventricular systolic pressure is estimated at 46 mmHg assuming a right atrial pressure of 15 mm Hg. Compared to the prior echo exam, there has been no change in the severity of pulmonary hypertension. Reading Physician:AM Assessment & Plan Thai Yin is a 46-year-old transgender, who identifies as male, with past medical history significant for asthma, oxygen dependent, lymphedema, hypothyroidism, diabetes mellitus type II, non-insulin using, with neuropathy and super obesity who presented to [facility] emergency department complaining of increasing dyspnea. Acute hypoxemic respiratory failure, present on admission. Active. - The patient presented cyanotic, severely dyspneic, with pleuritic chest pain. Likely due to CHF exacerbation and obesity hypoventilation syndrome - Patient is on 4L oxygen at baseline and may titrate as needed. - Trilogy approval remains in question, we will be in communication with patient customer care assistant to get this approved - Ordered Duonebs 4 times a day while awake and albuterol nebs every 2 hours as needed for shortness of breath. Diastolic congestive heart failure exacerbation, acute on chronic, present on admission. Active. - The patient has a history of CHF with underlying pulmonary hypertension due to sleep apnea and obesity hypoventilation syndrome currently awaiting at home Trilogy. - Echocardiogram repeated EF 60-65% results as above. - Chest x-ray consistent with fluid overload and CHF, as above. - EKG normal without signs of ischemia and serial troponins negative, therefore , do not believe that chest pain is cardiac in origin. - Continue diuresis with Lasix 40mg IV twice daily. Creatinine 1.19 which appears to be the patient's baseline. - Ordered daily standing weights, strict I&O's, 2 L fluid restriction, and CHF teaching. Possible pulmonary embolism, present on admission. Active. - The patient is on HRT, is morbidly obese, and endorses decreased mobilization recently which makes for moderate risk of PE. - D-dimer elevated at 1.62. - CTA negative - Echocardiogram shows no increased right ventricular strain. - Lovenox discontinued in favor of subcutaneous heparin, Continue to monitor Possible bilateral community-acquired pneumonia, present on admission. Active. - The patient presented with severe dyspnea, cyanosis, and pleuritic chest pain. Pneumonia very unlikely at this point. The patient has been afebrile and infectious markers negative. - Chest x-ray consistent with fluid overload and CHF, as above. - CTA demonstrated bilateral infiltrate without definitive PE, however, study was of poor quality due to body habitus and motion artifact, as above. - Lactic acid normal. - Pro-calcitonin normal - Blood cultures 2 negative - Sputum Gram stain and culture shows normal gabrielle - strep pneumoniae and legionella urine antigens, and respiratory viral PCR, negative - MRSA negative. - Zosyn discontinued 10/25 Chronic problems: Chronic bilateral lymphedema, present on admission. Stable. - Ordered wound care consultation. - Physical therapy consulted Hypothyroidism, present on admission. Stable. - Continue levothyroxine 300 g daily. Asthma, present on admission. Stable. - Continue home inhalers including Dulera 2 puffs inhaled twice a day and Advair 1 puff inhaled twice a day. - Continue fexofenadine 180 mg daily, Flonase one spray intranasally twice a day , and montelukast 10 mg daily at bedtime. - Ordered Duonebs 4 times a day while awake and albuterol nebs every 2 hours as needed for shortness of breath. - Continue supplemental oxygen as needed. Baseline oxygen requirement 4L. Diabetes mellitus type II, non-insulin using, with neuropathy, present on admission. Stable. - Hemoglobin A1c 8.1% 10/01/2016. - Held metformin and glyburide. - Ordered heart healthy and carbohydrate consistent diet. - Ordered low-dose correctional scale insulin. - Continue Gabapentin 300 mg 3 times a day. Anxiety with panic attacks, present on admission. Stable. - Continue fluoxetine 40 mg daily. Transgender - Patient is on testosterone therapy. Morbid obesity, present on admission. Stable. - BMI 68.5. - Ordered physical therapy. Chronic pain with opiate habituation, present on admission. Stable. - Continue Soma 350 mg twice daily as needed for muscle spasm and oxycodone 5 mg every 4 hours as needed for pain. - Ordered Colace 200 mg twice a day scheduled for opiate-induced constipation. May consider Relastor in future if constipation is persistent. GERD, present on admission. Stable. - Continue Protonix 40 mg twice a day before meals. Hyperlipidemia, present on admission. Stable. - Continue aspirin 81 mg and atorvastatin 80 mg daily at bedtime. Insomnia, present on admission. Stable. - Continue trazodone 50 mg daily at bedtime. Migraine headaches, present on admission. Stable. - Continue Fioricet every 6 hours as needed for migraine headaches. Counseled the patient regarding medication and potential rebound migraine headaches with use. PRN antiemetics: Zofran and Maalox. PRN bowel regimen: Senna and MiraLAX. PRN analgesics: Tylenol and Oxycodone. Disposition: Patient will likely be discharged home after 1-2 nights for optimization of lung function. . VTE Prophylaxis: Sub-Q Enoxaparin (therapeutic enoxaparin ), SCDs Resuscitation Status: CPR: Attempt Resuscitation Attending Statement The patient was seen and examined together with Dr. Restrepo on 10/26/16 and I have added additional information to the note above./ Sd Restrepo DO Oct 26, 2016 20:28 Tabitha James DO Oct 29, 2016 15:44
[2016-10-27] VITALS (7 sets, daily range): BP systolic 134–140; BP diastolic 72–74; PULSE 66–79; RESP 20–22; O2SAT 92–99
[2016-10-27] MEDS: Albuterol 2.5 mg/3 mL Inhalation Solution NEB PRN (00:02)
[2016-10-27] MEDS: Heparin 5,000 Unit/mL Inj SUBQ SCH ×2 (00:38→09:21)
[2016-10-27] MEDS: Butalbital-Acet-Caffeine Tablet PO PRN ×2 (03:36→09:28)
--- NOTE | 2016-10-27 04:57 | NUR ---
Tele/Pain/Headache C/O generalized pain , more in rt hip area, Had Migraine, Gave Fioricet , Lymphedema causing pain in legs, insists on sitting up in chair most of the time, advised to pt of benefits of elevating lower extremities. C/O SOB, RT gave 1 PRN NEB. C/O Muscle Spasm gave toradol and SOMA. On 2 Liter / Day fluid restriction Tele: [id number]
[2016-10-27 05:43] LABS: Mean Corpuscular Volume 92.9 fL (81-100)
[2016-10-27] MEDS: Insulin LISPRO 300 Unit/3 mL Inj SUBQ SCH ×2 (08:00→11:51)
[2016-10-27] MEDS: Albuterol-Ipratropium 3 mL Inhalation Solution NEB SCH (09:00)
[2016-10-27] MEDS: Pantoprazole 40 mg ER24 Tablet PO SCH (09:20)
[2016-10-27] MEDS: Furosemide 10 mg/mL 4 mL Inj IVPUSH SCH (09:21)
[2016-10-27] MEDS: Fluticasone 0.05% 15 Spray/2 Gm 16 Gm Nasal Spray NASAL SCH (09:22)
[2016-10-27] MEDS: Fluticasone-Salmeterol 100-50 Inhaler INHALATION SCH (09:22)
[2016-10-27] MEDS ORDERED: TEMA7.5C14 PO (09:48)
--- NOTE | 2016-10-27 10:09 | PCM.DIMED ---
Sd Restrepo DO 10/27/16 1009: Discharge Instructions Date of Service Oct 27, 2016 Dates of Hospitalization Oct 24, 2016 at 22:18 Discharge Diagnosis Discharge Diagnosis Acute hypoxemic respiratory failure, present on admission. Active. Diastolic congestive heart failure exacerbation, acute on chronic, present on admission. Active. Possible pulmonary embolism, present on admission. Active. Possible bilateral community-acquired pneumonia, present on admission. Active. Chronic bilateral lymphedema, present on admission. Stable. Hypothyroidism, present on admission. Stable. Asthma, present on admission. Stable. Diabetes mellitus type II, non-insulin using, with neuropathy, present on admission. Stable. Anxiety with panic attacks, present on admission. Stable. Transgender, present on admission. Stable. Morbid obesity, present on admission. Stable. Chronic pain with opiate habituation, present on admission. Stable. GERD, present on admission. Stable. Hyperlipidemia, present on admission. Stable. Insomnia, present on admission. Stable. Migraine headaches, present on admission. Stable. Medication Instructions Additional med instructions Please take home medications as previously prescribed. ecxept for the following changes: Discontinue trazadone Start Temazapam 7.5mg at night Take furosemide 40mg twice per day Test Results Test Results A CT scan and Chest Xray were completed here in the hospital which showed fluid in your lungs. Diet Discharge Diet: Low fat, Low Sodium, Heart Healthy Activity Discharge Activity: No restrictions Call your provider Call your provider for: Fever or Chills, Shortness of breath, Bleeding, Chest pain, Vomitting, Excessive diarrhea, Weakness (unilateral) Patient Instructions Patient Instructions You initially came to the hospital with shortness of breath. There was some concern at that time for possible pulmonary emboli or pneumonia, as well as congestive heart failure. Based on our workup I have very limited concern for pneumonia and only marginal concern for pulmonary emboli at this time. The majority of your symptoms appears to be related to your CHF. Please continue to take medications as prescribed above. We highly encourage physical activity as tolerated. Please continue the 2000 ml fluid restriction at this time. The best method to ensure that this is maintained his to have a 2 L soda bottle filled with water from which you pull all of your fluids for the day. . If any other fluids are taken other than from the bottle poor out that amount as to be able to keep track of how much fluid you are receiving per day. Please do not smoke. Please wean down on chewing tobacco as quickly as possible. Follow-up plan We would like you to followup with the CHF clinic as well as your primary care clinic for which you have an appointment on the of this month. They may titrate your home medications as needed for max respiratory benefit. Follow-up Provider: [facility] Follow-up with PCP in: 2 weeks Tabitha James DO 10/27/16 1608: Discharge Instructions Attending's Statement The patient was seen and examined together with Dr. Restrepo on 10/27/16 and I agree with the history, exam and plan as outlined in the note above. Sd Restrepo DO Oct 27, 2016 10:09 Tabitha James DO Oct 27, 2016 16:08
--- NOTE | 2016-10-27 10:15 | PCM.DC.MED ---
Discharge Summary Date of Service Oct 27, 2016 Dates of Hospitalization Date of Hospital Admission Oct 24, 2016 at 22:18 Date of Discharge: Oct 27, 2016 Providers: Admitting Physician: Aram Grant MD Primary Care Physician: [facility] Attending Physician: Tabitha James DO Diagnosis at Time of Discharge Diagnosis at Time of Discharge Acute hypoxemic respiratory failure, present on admission. Active. Diastolic congestive heart failure exacerbation, acute on chronic, present on admission. Active. Possible pulmonary embolism, present on admission.Resolved no PE found. Possible bilateral community-acquired pneumonia, present on admission. Active. Chronic bilateral lymphedema, present on admission. Stable. Hypothyroidism, present on admission. Stable. Asthma, present on admission. Stable. Diabetes mellitus type II, non-insulin using, with neuropathy, present on admission. Stable. Anxiety with panic attacks, present on admission. Stable. Transgender Morbid obesity, present on admission. Stable. Chronic pain with opiate habituation, present on admission. Stable. GERD, present on admission. Stable. Hyperlipidemia, present on admission. Stable. Insomnia, present on admission. Stable. Migraine headaches, present on admission. Stable. Procedures XRay, CTs & MRIs CT ANGIO CHEST PULMONARY EMBOLISM IMPRESSION: 1. Image quality is limited by patient motion artifact. 2. No definite evidence of pulmonary embolus. 3. Cardiomegaly. 3. Small bilateral pleural fluid collections. 4. Bilateral perihilar groundglass lung opacities which could represent CHF or viral pneumonitis. Please correlate with clinical data. 5. Right hilar and subcarinal mediastinal lymphadenopathy which could be reactive or neoplastic. Dictated by: Keri Urias MD, PhD on 10/24/2016 at 20:46 Approved by: Keri Urias MD, PhD on 10/24/2016 at 20:53 X-RAY CHEST ONE VIEW, PORTABLE IMPRESSION: Acute CHF. Dictated by: Keri Urias MD, PhD on 10/24/2016 at 19:09 . ECG 12 Lead EKG: Sinus rhythm, heart rate 73, normal axis, normal intervals, low voltage throughout precordial leads, poor R-wave progression, no pathological Q waves or acute ischemic changes such as ST elevation or depression. . Cardiac Echo Impression Echocardiogram Interpretation Summary 10/02/2016: The study quality was technically difficult. A contrast injection of Definity was performed to improve assessment of LV function. The ejection fraction is estimated to be 60-65%. There is mild tricuspid regurgitation. The right ventricular systolic pressure is estimated at 46 mmHg assuming a right atrial pressure of 8 mm Hg. Electronically signed by: Brent Woodard on Reading Physician:10/02/2016 12:10 PM . Echocardiogram interpretation summary 10/25/2016 The right ventricle grossly appears normal in size with probable normal systolic function. No significant change since prior study. The right ventricular systolic pressure is estimated at 46 mmHg assuming a right atrial pressure of 15 mm Hg. Compared to the prior echo exam, there has been no change in the severity of pulmonary hypertension. Reading Physician:AM Brief History Thai Yin is a 46-year-old transgender, who identifies as male, with past medical history significant for asthma, oxygen dependent, lymphedema, hypothyroidism, diabetes mellitus type II, non-insulin using, with neuropathy and super obesity who presented to [facility] emergency department complaining of increasing dyspnea. The patient reports that he came to the emergency department for worsening shortness of breath with sharp chest pain upon inspiration and increased swelling in his abdomen and legs. There was some concern at this time for pulmonary embolism considering the patient's presentation, however a CTA was done and was found to be negative. Additionally there was some concern for pneumonia however patient had no significant markers for pneumonia found on labs, and antibiotics were discontinued at that time. Lasix was started 40mg IV twice a day, and since that time the patient showed daily improvement with a total of 600 mL of fluid out in the last 24hours. Since the start of the lasix administration the patient is much improved clinically. The patient is currently stable and is back on his home oxygen dose. The patient is satting well on 3-4 L of oxygen and is being discharged home with 40 mg by mouth Lasix twice a day with close follow-up with his PCP and cardiology. Hospital Course Thai Yin is a 46-year-old transgender, who identifies as male, with past medical history significant for asthma, oxygen dependent, lymphedema, hypothyroidism, diabetes mellitus type II, non-insulin using, with neuropathy and super obesity who presented to [facility] emergency department complaining of increasing dyspnea. Acute hypoxemic respiratory failure, present on admission. Improved - The patient presented cyanotic, severely dyspneic, with pleuritic chest pain. Likely due to CHF exacerbation and obesity hypoventilation syndrome - Patient is on 4L oxygen at baseline - Trilogy approval remains in question, we will be in communication with patient insurance healthcare consultant to get this approved Diastolic congestive heart failure exacerbation, acute on chronic, present on admission. Active. - The patient has a history of CHF with underlying pulmonary hypertension due to sleep apnea and obesity hypoventilation syndrome currently awaiting at home Trilogy. - Echocardiogram repeated EF 60-65% results as above. - Chest x-ray consistent with fluid overload and CHF, as above. - EKG normal without signs of ischemia and serial troponins negative, therefore , do not believe that chest pain is cardiac in origin. - Creatinine 1.19 which appears to be the patient's baseline. Possible pulmonary embolism, present on admission. Stable - The patient is on HRT, is morbidly obese, and endorses decreased mobilization recently which makes for moderate risk of PE. - D-dimer elevated at 1.62. - CTA negative - Echocardiogram shows no increased right ventricular strain. Possible bilateral community-acquired pneumonia, present on admission. Resolved - The patient presented with severe dyspnea, cyanosis, and pleuritic chest pain. Pneumonia very unlikely at this point. The patient has been afebrile and infectious markers negative. - Chest x-ray consistent with fluid overload and CHF, as above. - CTA demonstrated bilateral infiltrate without definitive PE, however, study was of poor quality due to body habitus and motion artifact, as above. - Lactic acid normal. - Pro-calcitonin normal - Blood cultures 2 negative - Sputum Gram stain and culture shows normal gabrielle - strep pneumoniae and legionella urine antigens, and respiratory viral PCR, negative - MRSA negative. - Zosyn discontinued 10/25 Chronic problems: Chronic bilateral lymphedema, present on admission. Stable. - Ordered wound care consultation. - Physical therapy consulted Hypothyroidism, present on admission. Stable. - Continue levothyroxine 300 g daily. Asthma, present on admission. Stable. - Continue home inhalers including Dulera 2 puffs inhaled twice a day and Advair 1 puff inhaled twice a day. - Continue fexofenadine 180 mg daily, Flonase one spray intranasally twice a day , and montelukast 10 mg daily at bedtime. - Ordered Duonebs 4 times a day while awake and albuterol nebs every 2 hours as needed for shortness of breath. - Continue supplemental oxygen as needed. Baseline oxygen requirement 4L. Diabetes mellitus type II, non-insulin using, with neuropathy, present on admission. Stable. - Hemoglobin A1c 8.1% 10/01/2016. -Continue heart healthy and carbohydrate consistent diet. - Continue Gabapentin 300 mg 3 times a day. Anxiety with panic attacks, present on admission. Stable. - Continue fluoxetine 40 mg daily. Transgender, present on admission. Stable. - Patient is on testosterone therapy. Morbid obesity, present on admission. Stable. - BMI 68.5. - Home physical therapy. Chronic pain with opiate habituation, present on admission. Stable. - Continue Soma 350 mg twice daily as needed for muscle spasm and oxycodone 5 mg every 4 hours as needed for pain. - Ordered Colace 200 mg twice a day scheduled for opiate-induced constipation. May consider Relastor in future if constipation is persistent. GERD, present on admission. Stable. - Continue home medications Hyperlipidemia, present on admission. Stable. - Continue aspirin 81 mg and atorvastatin 80 mg daily at bedtime. Insomnia, present on admission. Stable. - Temazepam 7.5 mg at bedtime Migraine headaches, present on admission. Stable. - Continue Fioricet every 6 hours as needed for migraine headaches. Counseled the patient regarding medication and potential rebound migraine headaches with use. . Exam Vital Signs (Last) Date Time Temp Pulse Resp B/P Pulse Ox O2 Delivery O2 Flow Rate FiO2 10/27/16 09:15 Supplement Oxygen 10/27/16 08:31 36.5 66 20 140/74 99 4.00 Exam General: No acute distress HEENT: Normocephalic, atraumatic. External ears without defect. Pupils equal, round, and reactive to light and accommodation. Anicteric sclerae, moist conjunctivae. Cardiovascular: Regular rate and rhythm systolic murmurs, rubs, or gallops appreciated Pulmonary: Clear to auscultation, normal respiratory effort. Abdomen: Bowel tones present. Soft, morbidly obese nontender, nondistended. Extremities: Large, no clubbing, cyanosis, mild edema Skin: Normal temperature, turgor, and texture; no rash, ulcers, or subcutaneous nodules appreciated. Neurological: Cranial nerves grossly intact. Reflexes, coordination, and sensory function within normal limits. Normal muscle strength, tone, and bulk. Psychiatric: Normal affect. Alert and oriented to person, place, and time Test 10/24/16 18:40 10/24/16 23:15 10/25/16 03:40 10/26/16 08:42 D-Dimer 1.62mg/L FEU (<0.50) Lactic Acid Level 1.9mmol/L (0.4-2.0) Magnesium Level 2.2mg/dL (1.6-2.6) Pro-B-Type Natriuretic Peptide 78.08pg/mL (0-249) Hold Pandya Top Tube Received (Received) Urine Legionella pneumophilia Ag Negative (Negative) Neutrophils (%) (Auto) 91.2% (40-74) Lymphocytes (%) (Auto) 7.1% (14-46) Monocytes (%) (Auto) 1.5% (4-12) Eosinophils (%) (Auto) 0% (0-5) Basophils (%) (Auto) 0% (0-3) Troponin T 0.010ug/L (0.0-0.011) Test 10/27/16 04:55 White Blood Count 6.6th/mm3 (3.8-10.1) Red Blood Count 4.53mil/mm3 (4.40-5.80) Hemoglobin 12.7g/dL (13.8-17.2) Hematocrit 42.1% (41.0-50.0) Mean Corpuscular Volume 92.9fL (81-100) Mean Corpuscular Hemoglobin 28.0pg (27.0-35.0) Mean Corpuscular Hemoglobin Concent 30.2% (32.0-37.0) Red Cell Distribution Width 22.1% (12.3-15.4) Platelet Count 178bil/L (150-400) Sodium Level 140mEq/L (134-144) Potassium Level 4.4mEq/L (3.5-5.2) Chloride Level 98mEq/L (97-108) Carbon Dioxide Level 30mmol/L (18-29) Blood Urea Nitrogen 27mg/dL (6-24) Creatinine 0.97mg/dL (0.76-1.27) Estimat Glomerular Filtration Rate 89mL/min (>59) Glucose Level 148mg/dL (60-99) Calcium Level 9.6mg/dL (8.5-10.1) Total Bilirubin 0.9mg/dL (0.0-1.2) Aspartate Amino Transf (AST/SGOT) 24U/L (0-50) Alanine Aminotransferase (ALT/SGPT) 22U/L (0-44) Alkaline Phosphatase 60U/L (25-150) Total Protein 7.2g/dL (6.4-8.4) Albumin 4.1g/dL (3.4-5.0) Procalcitonin 0.03ng/mL (0.00-0.08) Microbiology Results Blood culture 2 no growth Discharge Medications Discharge Medications ([testosterone ]) Unknown Dose TOPICAL every 2 weeks (Reported) Aspirin (Aspirin) 81 Mg Tablet 81 MG PO DAILY (Reported) Atorvastatin (Lipitor) 80 Mg Tablet 80 MG PO HS (Reported) Cholecalciferol (Vitamin D3) (Vitamin D3) 1,000 Unit Tab.chew 1,000 UNIT PO DAILY (Reported) Ferrous Sulfate (Ferrous Sulfate) 325 Mg Tablet 325 MG PO DAILY (Reported) Fexofenadine (Fexofenadine) 180 Mg Tablet 180 MG PO BID (Reported) Fluoxetine (Fluoxetine) 20 Mg Capsule 40 MG PO MORNING (Reported) Fluticasone Propionate (Flonase Allergy Relief) 50 Mcg/Actuation Mott.susp 1 SPRAY NS BID (Reported) Fluticasone/Salmeterol (Advair 100-50 Diskus) 60 Puffs/Inh Disk 1 PUFFS IH BID ( Reported) Furosemide (Lasix) 20 Mg Tablet 40 MG PO BID Prescribed by: SD PARK DO Gabapentin (Gabapentin) 300 Mg Capsule 300 MG PO TID (Reported) Glyburide (Glyburide) 2.5 Mg Tablet 2.5 MG PO BIDAC Prescribed by: DERIK PEREZ MD Levothyroxine (Levothyroxine) 300 Mcg Tablet 300 MCG PO DAILY (Reported) Metformin (Glucophage) 500 Mg Tablet 500 MG PO BIDWM Prescribed by: DERIK PEREZ MD Mometasone/Formoterol (Dulera 100 Mcg/5 Mcg Inhaler) 13 Gm Hfa.aer.ad 2 PUFFS IH BID (Reported) Montelukast (Montelukast) 10 Mg Tablet 10 MG PO HS (Reported) Multivitamin (Once Daily) 1 Each Tablet 1 EACH PO DAILY (Reported) Omeprazole (Omeprazole) 40 Mg Capsule.dr 40 MG PO BIDAC (Reported) Salmeterol Xinafoate (Serevent Diskus) 50 Mcg/Puff Inhaler 2 PUFFS INH BID ( Reported) As needed Albuterol Neb Soln (Albuterol Neb Soln) 2.5 Mg/3 Ml Vial.neb 2.5 MG INHALATION QID PRN PRN For Shortness of Breath (Reported) Albuterol Sulfate (Ventolin HFA Inhaler) 200 Puff/18 Gm Inhaler 2 PUFF INH q4-6 hours PRN PRN For Shortness of Breath (Reported) Benzonatate (Benzonatate) 100 Mg Capsule 200 MG PO TID PRN PRN For Cough ( Reported) Butalbital/Acetamin/Caff 50-300-40 mg (Butalbital/Acetamin/Caff 50-300-40 mg) 1 Each Tablet 1 TAB PO Q6 PRN PRN Headache Prescribed by: VARSHA LAYTON MD Carisoprodol (Soma) 350 Mg Tablet 350 MG PO BID PRN PRN MUSCLE SPASM (Reported) Epinephrine (Epinephrine) 0.3 Mg/0.3 Ml Auto.injct Unknown Dose IJ prn PRN PRN For Anaphyllaxis (Reported) Ibuprofen (Ibuprofen) 800 Mg Tablet 800 MG PO TID PRN PRN For Pain (Reported) Loperamide (Loperamide) 2 Mg Capsule 2-4 MG PO BID PRN PRN For Diarrhea or Loose Stool (Reported) Ondansetron (Zofran) 4 Mg Tablet 4 MG PO TIDWM PRN PRN For Nausea (Reported) Temazepam (Temazepam) 7.5 Mg Capsule 7.5 MG PO HS PRN PRN For Insomnia Prescribed by: SD PARK DO Tramadol (Tramadol) 50 Mg Tablet 100 MG PO TID PRN PRN For Pain (Reported) oxyCODONE (oxyCODONE) 5 Mg Capsule 5 MG PO Q4H PRN PRN For Pain Prescribed by: VARSHA LAYTON MD Additional med instructions Please take home medications as previously prescribed. ecxept for the following changes: Discontinue trazadone Start Temazapam 7.5mg at night Followup Plan Disposition: Home Follow-up plan We would like you to followup with the CHF clinic as well as your primary care clinic for which you have an appointment on the of this month. They may titrate your home medications as needed for max respiratory benefit. Discharge Diet: Low fat, Low Sodium, Heart Healthy Discharge Activity: No restrictions Patient Instructions You initially came to the hospital with shortness of breath. There was some concern at that time for possible pulmonary emboli or pneumonia, as well as congestive heart failure. Based on our workup I have very limited concern for pneumonia and only marginal concern for pulmonary emboli at this time. The majority of your symptoms appears to be related to your CHF. Please continue to take medications as prescribed above. We highly encourage physical activity as tolerated. please continue the 2000 ml fluid restriction at this time. please do not smoke. Please wean down on chewing tobacco as quickly as possible. Follow-up Provider: [facility] Follow-up with PCP in: 2 weeks CHF Clinic: 1 week Time spent Greater than 35 minutes spent in documentation and coordination of discharge. Attending Statement The patient was seen and examined together with Dr. Park on 10/27/16 and I have added additional information to the note above. copies to: [facility] Sd Park DO Oct 27, 2016 10:15 Tabitha James DO Oct 27, 2016 16:21 concern at that time for possible pulmonary emboli or pneumonia, as well as congestive heart failure. Based on our workup I have very limited concern for pneumonia and only marginal concern for pulmonary emboli at this time. The majority of your symptoms appears to be related to your CHF. Please continue to take medications as prescribed above. We highly encourage physical activity as tolerated. please continue the 2000 ml fluid restriction at this time. please do not smoke. Please wean down on chewing tobacco as quickly as possible. Follow-up Provider: [facility] Follow-up with PCP in: 2 weeks Time spent Greater than 35 minutes spent in documentation and coordination of discharge. Sd Park DO Oct 27, 2016 10:15
[2016-10-27] MEDS ORDERED: FURO-129 PO (11:06)
--- NOTE | 2016-10-27 11:28 | NUR ---
Social Work: Discharge Data: Pt is on day 3 of hospitalization. EMR reviewed, pt discussed in multidisciplinary rounds. states pt ready for d/c today. D/C orders are in, disposition is home with home health. ordered [employer]EIGN LEGAL CONSULTANT resume HH for RN, PT. FOREIGN LEGAL CONSULTANT called [facility], left voice mail stating access was given, notifying them that pt will d/c home today. No further d/c planning needs identified at this time. FOREIGN LEGAL CONSULTANT will continue to follow if needs arise. Assessment: Pt who is independent at baseline, currently capable of self care, needing HH. Plan: Pt will d/c home via POV today with resume [facility] for RN, PT. No further d/c planning needs identified at this time. FOREIGN LEGAL CONSULTANT will continue to follow if needs arise. ADARSH Roberts
--- NOTE | 2016-10-27 13:20 | NUR ---
Multidisciplinary Communication 0630 - Discussed his care with Dr. James and the rest of the multidisciplinary care team during morning rounds. Informed them that he was requesting leg wraps. Dr. James said he could follow up with home health services as an out patient for this. 1235 - Pt was requesting a walker for discharged. Paged Dr. Restrepo. He did not call back. 1258 - Paged Dr. Restrepo again, but he did not call back. 1310 - Paged Dr. James who called back at 1320. She said that if he wanted a walker he would need to follow up with his primary care provider. Notified the patient of this. He was also notified of places he could purchase or rent a walker. Care continues.
--- NOTE | 2016-10-27 13:50 | NUR ---
Discharge 13:30 Discharge teaching done. Answered questions. Paper prescription x2 and discharge instruction given. Patient denied having pain. IV line disconnected intact, skin around the IV was intact no signs of redness or infection. Patient was accompanied with his girlfriend and friend and escorted by the nurse to their car. Thanked staff for their care.
== END 2016-10-27 13:45 | disposition home health service (06) | DRG 189 ==
LOC: SED 18:10 → EDSEX 18:10 → PCC 22:18
PROVIDERS: ADMIT Hospitalist; ATTEND Hospitalist
DX: J96.01 Acute respiratory failure with hypoxia (principal); I50.33 Acute on chronic diastolic (congestive) heart failure; I27.2 Other secondary pulmonary hypertension; E11.40 Type 2 diabetes mellitus with diabetic neuropathy, unspecified; E66.2 Morbid (severe) obesity with alveolar hypoventilation; F11.20 Opioid dependence, uncomplicated; Z68.44 Body mass index [BMI] 60.0-69.9, adult; Z99.81 Dependence on supplemental oxygen; Z79.84 Long term (current) use of oral hypoglycemic drugs; G47.00 Insomnia, unspecified; Z71.3 Dietary counseling and surveillance; F41.0 Panic disorder [episodic paroxysmal anxiety]; I89.0 Lymphedema, not elsewhere classified; J45.909 Unspecified asthma, uncomplicated; G43.909 Migraine, unspecified, not intractable, without status migrainosus; G44.89 Other headache syndrome; E03.9 Hypothyroidism, unspecified; I10 Essential (primary) hypertension; Z87.891 Personal history of nicotine dependence; G89.29 Other chronic pain; F64.1 Dual role transvestism; K21.9 Gastro-esophageal reflux disease without esophagitis

== ENCOUNTER 2016-10-30 23:04 | Inpatient (IN) | payer OTHER, MEDICAID ==
[~2016-10-30] VITALS: Ht 160 cm; Wt 173.2 kg
[2016-10-30 23:04] VITALS: BP 145/85; PULSE 73; RESP 20; O2SAT 100
[~2016-10-30 23:04] MED LIST changes: -SUMA50TA31 PO; +TEMA7.5C14 PO; -TRAZ-115 PO
--- NOTE | 2016-10-30 23:47 | ED.REPORT ---
HPI-Chest Pain 40 and Over Date of Service Oct 30, 2016 ED Provider: Celio Barboza MD The pt is a 46 year old transgender, who identifies as a male with a history of asthma, CHF, diabetes with neuropathy who presents to the ED via EMS complaining of sudden onset of substernal chest pain that radiates to his right side, onset two hours ago. Associated sx include shortness of breath. The pt was given 2 Nitro and 3mg morphine en route, which did not improve his sx. He denies fever and does not have any other complaints at this time. He was admitted to the hospital for pneumonia last week. Nursing Notes Stated Complaint: CHEST PAIN Chief Complaint: Chest Pain Nursing Notes Reviewed: Yes Allergies: Coded Allergies: Honey Bee (Verified Allergy, Severe, Anaphylaxis, 10/24/16) "stop breathing,and quivering" honey (Verified Allergy, Severe, Anaphylaxis, 10/24/16) azithromycin (Verified Allergy, Intermediate, emesis, 10/24/16) haloperidol (Verified Allergy, Intermediate, confusion, 10/24/16) Uncoded Allergies: ZPak (Allergy, Severe, 10/25/16) Diarrhea, hives redwood tree (Allergy, Unknown, Hives, 10/01/16) Scheduled ([testosterone ]) Unknown Dose TOPICAL every 2 weeks Aspirin (Aspirin) 81 Mg Tablet 81 MG PO DAILY Atorvastatin (Lipitor) 80 Mg Tablet 80 MG PO HS Cholecalciferol (Vitamin D3) (Vitamin D3) 1,000 Unit Tab.chew 1,000 UNIT PO DAILY Ferrous Sulfate (Ferrous Sulfate) 325 Mg Tablet 325 MG PO DAILY Fexofenadine (Fexofenadine) 180 Mg Tablet 180 MG PO BID Fluoxetine (Fluoxetine) 20 Mg Capsule 40 MG PO MORNING Fluticasone Propionate (Flonase Allergy Relief) 50 Mcg/Actuation [place].susp 1 SPRAY NS BID Fluticasone/Salmeterol (Advair 100-50 Diskus) 60 Puffs/Inh Disk 1 PUFFS IH BID Furosemide (Lasix) 20 Mg Tablet 40 MG PO BID Gabapentin (Gabapentin) 300 Mg Capsule 300 MG PO TID Glyburide (Glyburide) 2.5 Mg Tablet 2.5 MG PO BIDAC Levothyroxine (Levothyroxine) 300 Mcg Tablet 300 MCG PO DAILY Metformin (Glucophage) 500 Mg Tablet 500 MG PO BIDWM Mometasone/Formoterol (Dulera 100 Mcg/5 Mcg Inhaler) 13 Gm Hfa.aer.ad 2 PUFFS IH BID Montelukast (Montelukast) 10 Mg Tablet 10 MG PO HS Multivitamin (Once Daily) 1 Each Tablet 1 EACH PO DAILY Omeprazole (Omeprazole) 40 Mg Capsule.dr 40 MG PO BIDAC Salmeterol Xinafoate (Serevent Diskus) 50 Mcg/Puff Inhaler 2 PUFFS INH BID Scheduled PRN Albuterol Neb Soln (Albuterol Neb Soln) 2.5 Mg/3 Ml Vial.neb 2.5 MG INHALATION QID PRN PRN For Shortness of Breath Albuterol Sulfate (Ventolin HFA Inhaler) 200 Puff/18 Gm Inhaler 2 PUFF INH q4-6 hours PRN PRN For Shortness of Breath Benzonatate (Benzonatate) 100 Mg Capsule 200 MG PO TID PRN PRN For Cough Butalbital/Acetamin/Caff 50-300-40 mg (Butalbital/Acetamin/Caff 50-300-40 mg) 1 Each Tablet 1 TAB PO Q6 PRN PRN Headache Carisoprodol (Soma) 350 Mg Tablet 350 MG PO BID PRN PRN MUSCLE SPASM Epinephrine (Epinephrine) 0.3 Mg/0.3 Ml Auto.injct Unknown Dose IJ prn PRN PRN For Anaphyllaxis Ibuprofen (Ibuprofen) 800 Mg Tablet 800 MG PO TID PRN PRN For Pain Loperamide (Loperamide) 2 Mg Capsule 2-4 MG PO BID PRN PRN For Diarrhea or Loose Stool Ondansetron (Zofran) 4 Mg Tablet 4 MG PO TIDWM PRN PRN For Nausea Temazepam (Temazepam) 7.5 Mg Capsule 7.5 MG PO HS PRN PRN For Insomnia Tramadol (Tramadol) 50 Mg Tablet 100 MG PO TID PRN PRN For Pain oxyCODONE (oxyCODONE) 5 Mg Capsule 5 MG PO Q4H PRN PRN For Pain General Time Seen by MD: 23:28 Chief Complaint Chest pain Hx Obtained From: Patient Arrived By: Ambulance Sudden in Onset?: Yes Onset Occurred: 1 - 4 hours ago Symptom Duration: Since onset Location: : Substernal Quality: Heaviness Severity: Current: Severe Severity: Maximum: Severe Recent Healthcare: Recent doctor visit Past Medical History Past Medical History Notes: Admitted 09/2016 for CHF/Leg Edema Echocardiogram September 2016-technically difficult, EF estimated 6065% The pt was born a female but identifies as a male. 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 Physical Exam Initial Vital Signs Vital Signs (First) Date Time Temp Pulse Resp B/P Pulse Ox O2 Delivery O2 Flow Rate FiO2 10/30/16 23:04 37.5 73 20 145/85 100 Non-Rebreather 13 Initial VS: Reviewed, Vital signs normal Head / Eyes: Atraumatic, Normocephalic Neck: Supple, Non-tender, Full range of motion Extremities: Vascular intact, Neuro intact, No swelling, No tenderness Skin: Warm, Dry, No cyanosis Neurologic: Alert, Oriented, Nonfocal General/Constitutional: Awake, Alert Appearance / Presentation: Positive: Obese, morbidly Physical exam markedly limited by pt's body habitus. Respiratory / Chest: Atraumatic, Breath sounds NL, Breath sounds = bilat, No respiratory distress, No rales, No rhonchi, No wheezing Cardiovascular: Heart rate NL, Regular rhythm, Heart sounds NL, No gallop, No murmurs, No rubs Bilateral pitting edema Abdomen: Atraumatic, Soft, Non-tender Interpretation & Diagnostics Lab Results Interpretation Result Diagram: 10/30/16 2350 10/30/16 2350 Test 10/30/16 23:50 10/31/16 00:00 White Blood Count 7.9th/mm3 (3.8-10.1) Red Blood Count 4.47mil/mm3 (4.40-5.80) Hemoglobin 12.5g/dL (13.8-17.2) Hematocrit 40.6% (41.0-50.0) Mean Corpuscular Volume 90.8fL (81-100) Mean Corpuscular Hemoglobin 28.0pg (27.0-35.0) Mean Corpuscular Hemoglobin Concent 30.8% (32.0-37.0) Red Cell Distribution Width 21.1% (12.3-15.4) Platelet Count 169bil/L (150-400) Neutrophils (%) (Auto) 79.9% (40-74) Lymphocytes (%) (Auto) 13.4% (14-46) Monocytes (%) (Auto) 6.4% (4-12) Eosinophils (%) (Auto) 0% (0-5) Basophils (%) (Auto) 0% (0-3) Sodium Level 138mEq/L (134-144) Potassium Level 4.1mEq/L (3.5-5.2) Chloride Level 97mEq/L (97-108) Carbon Dioxide Level 27mmol/L (18-29) Blood Urea Nitrogen 19mg/dL (6-24) Creatinine 0.96mg/dL (0.76-1.27) Estimat Glomerular Filtration Rate 90mL/min (>59) Glucose Level 169mg/dL (60-99) Calcium Level 9.1mg/dL (8.5-10.1) Magnesium Level 2.1mg/dL (1.6-2.6) Total Bilirubin 0.7mg/dL (0.0-1.2) Aspartate Amino Transf (AST/SGOT) 25U/L (0-50) Alanine Aminotransferase (ALT/SGPT) 22U/L (0-44) Alkaline Phosphatase 67U/L (25-150) Troponin T 0.010ug/L (0.0-0.011) Pro-B-Type Natriuretic Peptide 76pg/mL (0-121) Total Protein 7.0g/dL (6.4-8.4) Albumin 3.9g/dL (3.4-5.0) Hold Pandya Top Tube Received (Received) D-Dimer 1.12mg/L FEU (<0.50) Lab Results Interpretation: Elevated nonfasting blood glucose, no elevation of white blood count or lactic acid. ECG Interpretation ECG Interpretation: Normal sinus rhythm. Rate 74. Time: 23:13 Interpreted by: ED physician X-Ray Chest Interpretation Chest Xray Interpretation: Pneumonia View: Portable, 1 view Interpretation / Wet Read by: Wet read ED physician Re-Eval/Medical Decision Med Decision/Clinical Course 46-year-old male who with respiratory distress and chest pain. Recent admission for possible pneumonia, but not confirmed. Chest CT angio PE protocol at that time was negative. Today the chest x-ray actually looks worse , but there is no elevation of white blood count or lactic acid. His O2 saturation dips down as low as 80% on room air and is 93% on 10 L of O2. He was covered with HCAP pneumonia anabiotic's. He will be admitted to the hospitalist service for further evaluation and treatment. Time of Eval: 00:22 Re-Evaluation/Progress Note: Rechecked pt. Discussed lab results, imaging results,diagnosis and plan to admit. Pt understands and agrees with the plan for admission. All questions addressed. Consultation : Referral / Consult Name: Kelly Gold MD Consulted With: Hospitalist Call Returned at: 01:36 Delivery And Installation Subcontractor: Will see patient, Agrees with eval, Agrees with plan, Accepts admit Counseled Regarding: Diagnosis, Lab results, Need for admission Discharge & Departure Primary Impression: Pneumonia Pneumonia type: due to unspecified organism Laterality: right Lung location : unspecified part of lung Qualified Code: J18.9 - Pneumonia, unspecified organism Disposition: ADMITTED TO HOSPITAL Discharge Condition All VS Reviewed: Yes Referrals: [facility] (PCP) Scribe Attestation Portions of this note were transcribed by Rita Chambers. I,, personally performed the history, physical exam and medical decision-making;I reviewed and confirmed the accuracy of the information in the transcribed note. Signed by Errol Henderson. 10/31/16 copies to: [facility] Celio Barboza MD Oct 30, 2016 23:47 Rita Chambers Oct 31, 2016 00:11
[2016-10-31] VITALS (14 sets, daily range): BP systolic 109–144; BP diastolic 42–72; PULSE 65–77; RESP 18–37; O2SAT 92–97
[2016-10-31 00:01] LABS: BASOPHILS % (AUTO) 0 % (0-3); EOSINOPHILS % (AUTO) 0 % (0-5); MONOCYTES % (AUTO) 6.4 % (4-12); Mean Corpuscular Volume 90.8 fL (81-100); NEUTROPHILS % (AUTO) 79.9 % (40-74); Platelet Count 169 bil/L (150-400)
[2016-10-31] MEDS ORDERED: levoFLOXacin Inj 750 MG in IV Premix 1 EACH IV ONE (00:10)
[2016-10-31] MEDS ORDERED: Furosemide 10 mg/mL 4 mL Inj IVPUSH ONE (00:10)
[2016-10-31] MEDS ORDERED: Piperacillin-Tazo 3.375 Gm Inj 3.375 GM in Dextrose 5% Minibag Plus 50 ML IV ONE (00:10)
[2016-10-31] MEDS ORDERED: Vancomycin Dose per Pharmacist XX ONE (00:10)
[2016-10-31 00:46] LABS: TROPONIN T 0.01 ug/L (0.0-0.011)
[2016-10-31] MEDS ORDERED: 0.9% Sodium Chloride 250 ML ONE (00:49)
[2016-10-31 00:53] LABS: Magnesium 2.1 mg/dL (1.6-2.6)
--- NOTE | 2016-10-31 02:00 | ABG ---
DateTimeAnalyzed 01:52:00 -_ pH ____7.354 - 7.350 7.450 pCO2 ___56.5__ -mmHg 35.0 45.0 pO2 ___91.3__ -mmHg 69.0 116 HCO3- ___30.7__ -mmol/L 22.0 26.0 ABE ____4.3__ -mmol/L -2.0 2.0 tHb ___12.9__ -g/dL 12.0 18.0 O2Hb ___93.6__ -% COHb ____2.1__ -% 0.0 1.5 MetHb ____0.6__ -% 0.4 1.5 sO2 ___96.2__ -% 25.0 FIO2 ___64.0__ -% Drawn By MM - Date/Time Notified____ 01:59:00 -_ Spontaneous_RR ___22.0__ -b/min Liter_Flow ___11.0__ -L/min Oxygen Device 1 __OXYMASK - Notified By MM - Notified Whom DR LEIBRAND - B 758 -mmHg tO2 ___17.0__ -Vol% Pb test _Positive -
[2016-10-31] MEDS ORDERED: Ondansetron 2 mg/mL 2 mL Inj IVPUSH PRN (02:50)
[2016-10-31] MEDS ORDERED: Senna-Docusate 8.6-50 mg Tablet PO PRN (02:50)
[2016-10-31] MEDS ORDERED: Alum-Mag Hydrox-Simeth 30 mL Suspension PO PRN (02:50)
[2016-10-31] MEDS ORDERED: Polyethylene Glycol (PEG) 17 Gm Powder PO PRN (02:50)
[2016-10-31] MEDS ORDERED: Glucose 40% Oral Gel 15 Gm Tube PO PRN (03:10)
--- NOTE | 2016-10-31 03:11 | PCM.HPMED ---
Subjective Date of Service Oct 31, 2016 Primary Provider: Admitting Physician: Primary Care Physician: Lee,VALENCIA Residency Attending Physician: Admit Status: From the Emergency Department, Full Admit, [facility] Telemetry Chief Complaint: Chest pain, dyspnea History of Present Illness: Is a 46-year-old transgender who identifies as male who presents with increasing shortness of breath and substernal chest pain which started about 9: 45 PM. He was recently hospitalized here for acute diastolic on chronic congestive heart failure exacerbation. Patient was started on Trilogy at home for hypoventilation syndrome secondary to morbid obesity. Patient does note increased swelling of the bilateral lower extremities. He does have bilateral lower extremity lymphedema. Also has a history of type II diabetes. Patient has a chest pain is not present with palpation or is not worsened by movement or inspiration. Chest x-ray is consistent with pulmonary edema and cardiomegaly. Initial troponin is 0.010. Patient was hospitalized here from OctoberOctober 24 until October 27 as mentioned for acute on chronic diastolic congestive heart failure. At that time repeat echocardiogram showed right ventricular grossly appears normal in size with probable normal systolic function no significant change since prior study. The right ventricular systolic pressure was estimated at 46 mmHg assuming a right atrial pressure 15 mmHg. Compared to prior echo exam there has been no change in the severity of pulmonary hypertension. Review of Systems: Patient denies any fevers chills or cough all other review of systems are reviewed and are negative except for as in history of present illness. Allergies Coded Allergies: Honey Bee (Verified Allergy, Severe, Anaphylaxis, 10/24/16) "stop breathing,and quivering" honey (Verified Allergy, Severe, Anaphylaxis, 10/24/16) azithromycin (Verified Allergy, Intermediate, emesis, 10/24/16) haloperidol (Verified Allergy, Intermediate, confusion, 10/24/16) Uncoded Allergies: ZPak (Allergy, Severe, 10/25/16) Diarrhea, hives redwood tree (Allergy, Unknown, Hives, 10/01/16) Home Medications Scheduled ([testosterone ]) Unknown Dose TOPICAL every 2 weeks Aspirin (Aspirin) 81 Mg Tablet 81 MG PO DAILY Atorvastatin (Lipitor) 80 Mg Tablet 80 MG PO HS Cholecalciferol (Vitamin D3) (Vitamin D3) 1,000 Unit Tab.chew 1,000 UNIT PO DAILY Ferrous Sulfate (Ferrous Sulfate) 325 Mg Tablet 325 MG PO DAILY Fexofenadine (Fexofenadine) 180 Mg Tablet 180 MG PO BID Fluoxetine (Fluoxetine) 20 Mg Capsule 40 MG PO MORNING Fluticasone Propionate (Flonase Allergy Relief) 50 Mcg/Actuation [place].susp 1 SPRAY NS BID Fluticasone/Salmeterol (Advair 100-50 Diskus) 60 Puffs/Inh Disk 1 PUFFS IH BID Furosemide (Lasix) 20 Mg Tablet 40 MG PO BID Gabapentin (Gabapentin) 300 Mg Capsule 300 MG PO TID Glyburide (Glyburide) 2.5 Mg Tablet 2.5 MG PO BIDAC Levothyroxine (Levothyroxine) 300 Mcg Tablet 300 MCG PO DAILY Metformin (Glucophage) 500 Mg Tablet 500 MG PO BIDWM Mometasone/Formoterol (Dulera 100 Mcg/5 Mcg Inhaler) 13 Gm Hfa.aer.ad 2 PUFFS IH BID Montelukast (Montelukast) 10 Mg Tablet 10 MG PO HS Multivitamin (Once Daily) 1 Each Tablet 1 EACH PO DAILY Omeprazole (Omeprazole) 40 Mg Capsule.dr 40 MG PO BIDAC Salmeterol Xinafoate (Serevent Diskus) 50 Mcg/Puff Inhaler 2 PUFFS INH BID Scheduled PRN Albuterol Neb Soln (Albuterol Neb Soln) 2.5 Mg/3 Ml Vial.neb 2.5 MG INHALATION QID PRN PRN For Shortness of Breath Albuterol Sulfate (Ventolin HFA Inhaler) 200 Puff/18 Gm Inhaler 2 PUFF INH q4-6 hours PRN PRN For Shortness of Breath Benzonatate (Benzonatate) 100 Mg Capsule 200 MG PO TID PRN PRN For Cough Butalbital/Acetamin/Caff 50-300-40 mg (Butalbital/Acetamin/Caff 50-300-40 mg) 1 Each Tablet 1 TAB PO Q6 PRN PRN Headache Carisoprodol (Soma) 350 Mg Tablet 350 MG PO BID PRN PRN MUSCLE SPASM Epinephrine (Epinephrine) 0.3 Mg/0.3 Ml Auto.injct Unknown Dose IJ prn PRN PRN For Anaphyllaxis Ibuprofen (Ibuprofen) 800 Mg Tablet 800 MG PO TID PRN PRN For Pain Loperamide (Loperamide) 2 Mg Capsule 2-4 MG PO BID PRN PRN For Diarrhea or Loose Stool Ondansetron (Zofran) 4 Mg Tablet 4 MG PO TIDWM PRN PRN For Nausea Temazepam (Temazepam) 7.5 Mg Capsule 7.5 MG PO HS PRN PRN For Insomnia Tramadol (Tramadol) 50 Mg Tablet 100 MG PO TID PRN PRN For Pain oxyCODONE (oxyCODONE) 5 Mg Capsule 5 MG PO Q4H PRN PRN For Pain PMH Past Medical History Past Medical History Notes: Admitted 09/2016 for CHF/Leg Edema Echocardiogram September 2016-technically difficult, EF estimated 60-65% The pt was born a female but identifies as a male. 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 Head: Normocephalic atraumatic Mouth: No lesions Neck: No adenopathy Chest reveals crackles at the bases posteriorly Cor: Regular rate and rhythm S1-S2 without murmur Abdomen: Soft nontender obese bowel sounds present Extremities: Bilateral indurated lymphedema present with stasis dermatitis present Psych: Mood and affect are appropriate Skin: no rashes except for bilateral lower extremity lymphedema with stasis dermatitis Neuro: Alert and oriented 3, motor strength is intact bilaterally Lab and Diagnostics Labs Laboratory Tests 72 Hours Test 10/30/16 23:50 10/31/16 00:00 White Blood Count 7.9th/mm3 (3.8-10.1) Red Blood Count 4.47mil/mm3 (4.40-5.80) Hemoglobin 12.5g/dL (13.8-17.2) Hematocrit 40.6% (41.0-50.0) Mean Corpuscular Volume 90.8fL (81-100) Mean Corpuscular Hemoglobin 28.0pg (27.0-35.0) Mean Corpuscular Hemoglobin Concent 30.8% (32.0-37.0) Red Cell Distribution Width 21.1% (12.3-15.4) Platelet Count 169bil/L (150-400) Neutrophils (%) (Auto) 79.9% (40-74) Lymphocytes (%) (Auto) 13.4% (14-46) Monocytes (%) (Auto) 6.4% (4-12) Eosinophils (%) (Auto) 0% (0-5) Basophils (%) (Auto) 0% (0-3) Sodium Level 138mEq/L (134-144) Potassium Level 4.1mEq/L (3.5-5.2) Chloride Level 97mEq/L (97-108) Carbon Dioxide Level 27mmol/L (18-29) Blood Urea Nitrogen 19mg/dL (6-24) Creatinine 0.96mg/dL (0.76-1.27) Estimat Glomerular Filtration Rate 90mL/min (>59) Glucose Level 169mg/dL (60-99) Calcium Level 9.1mg/dL (8.5-10.1) Magnesium Level 2.1mg/dL (1.6-2.6) Total Bilirubin 0.7mg/dL (0.0-1.2) Aspartate Amino Transf (AST/SGOT) 25U/L (0-50) Alanine Aminotransferase (ALT/SGPT) 22U/L (0-44) Alkaline Phosphatase 67U/L (25-150) Troponin T 0.010ug/L (0.0-0.011) Pro-B-Type Natriuretic Peptide 76pg/mL (0-121) Total Protein 7.0g/dL (6.4-8.4) Albumin 3.9g/dL (3.4-5.0) Hold Pandya Top Tube Received (Received) D-Dimer 1.12mg/L FEU (<0.50) Result Diagram: 10/30/160 10/30/16 2350 X-Rays, CTs and MRIs Chest x-ray with cardiomegaly and pulmonary edema. Final radiologist reading is pending. 12-lead ECG Sinus at a rate of 74 for RA progression across precordium Cardiac Echo Impressions Echocardiogram Report Name: LANDY ACOSTA FStudy Date: 10/25/2016 [facility] Exam Location: [facility] Gender: Female : 1970 Age: 46 yrs BP: 127/67 mmHg Reason For Study: RV strain Ordering Physician: Performed By: Berlin Draper Referring Physician: SERENITY GASCA Interpretation Summary The right ventricle grossly appears normal in size with probable normal systolic function. No significant change since prior study. The right ventricular systolic pressure is estimated at 46 mmHg assuming a right atrial pressure of 15 mm Hg. Compared to the prior echo exam, there has been no change in the severity of pulmonary hypertension. Additional Diagnostics: LANDY ACOSTA F 1970 Male DateTimeAnalyzed 01:52:00 -_ pH ____7.354 - 7.350 7.450 pCO2 ___56.5__ -mmHg 35.0 45.0 pO2 ___91.3__ -mmHg 69.0 116 HCO3- ___30.7__ -mmol/L 22.0 26.0 ABE ____4.3__ -mmol/L -2.0 2.0 tHb ___12.9__ -g/dL 12.0 18.0 O2Hb ___93.6__ -% COHb ____2.1__ -% 0.0 1.5 MetHb ____0.6__ -% 0.4 1.5 sO2 ___96.2__ -% 25.0 FIO2 ___64.0__ -% Drawn By MM - Date/Time Notified____ 01:59:00 -_ Spontaneous_RR ___22.0__ -b/min Liter_Flow ___11.0__ -L/min Oxygen Device 1 __OXYMASK - Notified By MM - Notified Whom DR LEIBRAND - B 758 -mmHg tO2 ___17.0__ -Vol% Pb test _Positive - Assessment & Plan # Acute on chronic diastolic congestive heart failure, present on admission -Initiate Lasix 80 mg IV twice a day -Initiate spironolactone 25 mg by mouth daily -Fluid restrict and salt restricted diet -Monitor I's and O's and daily weights # Chest pain, acute, present on admission -Check stat d-dimer and if positive proceed with CT of chest -Check serial troponins #Obesity hypoventilation syndrome, chronic, present on admission -Patient uses Trilogy at home will proceed with checking nocturnal oximetry and may need to consider use of BiPAP while here -ABG done in the ER which is fine at this time but is getting significant amount of O2 supplementation currently # Type II diabetes, chronic, present on admission -Proceed with subcutaneous insulin protocol -Check hemoglobin A1c #Hypothyroidism, chronic, present on admission -Check TSH and continue levothyroxine supplementation #Chronic bilateral lymphedema with stasis dermatitis, present on admission -Wound care consultation ordered -Patient did see wound care today also as an outpatient # DVT prophylaxis -Subcutaneous prophylactic Lovenox # CODE STATUS -Full code VTE Prophylaxis: Sub-Q Enoxaparin Resuscitation Status: CPR: Attempt Resuscitation Time spent 60 minutes Kelly Gold MD Oct 31, 2016 03:11
[2016-10-31] MEDS ORDERED: Dextrose 10% 250 ML IV PRN (03:15)
[2016-10-31] MEDS ORDERED: 0.9% Sodium Chloride 50 ML ONE (04:21)
[2016-10-31] MEDS: Furosemide 10 mg/mL 10 mL Inj IVPUSH SCH ×2 (04:29→20:54)
[2016-10-31 04:51] LABS: APPEARANCE,URINE CLEAR (CLEAR,HAZY); COLOR,URINE YELLOW (YELLOW); OCCULT BLOOD,URINE TRACE (NEGATIVE); PH,URINE 5.5 (5.0-8.0); UROBILINOGEN,URINE NORMAL (NORMAL)
--- NOTE | 2016-10-31 06:18 | NUR ---
admit note: pt. admitted for sob, requiring 10L oxymask. Pt states he has a migraine and tylenol wont touch it. pt. was just discharged october 27, pt. is diaphoretic, resp rate 30, sats mid 90's. pt. has awad cath placed due to sob w/ exertion and difficulty w/ mobility due to obesity.
--- NOTE | 2016-10-31 07:40 | DRSVH ---
PROCEDURE: X-RAY CHEST ONE VIEW, PORTABLE ([id number]) INDICATIONS: CHEST PAIN TECHNIQUE: One view of the chest was acquired. COMPARISON: [facility], CR, XR CHEST 1VW (PORTABLE), 10/24/2016, 18:59. FINDINGS: Surgical changes and devices: None. Lungs and pleura: The worsening bilateral mostly perihilar pulmonary opacities right greater than lef t. Small pleural effusions. Mediastinum: Enlargement of the cardiac mediastinal silhouette. Bones and chest wall: No suspicious bony lesions. Overlying soft tissues appear unremarkable. IMPRESSION: Worsening bilateral pulmonary opacities consistent with edema in the setting of CHF exace rbation and/or infection. Dictated by: Bob Lopez M.D. on 10/31/2016 at 7:37 Approved by: Bob Lopez M.D. on 10/31/2016 at 7:39
[2016-10-31] MEDS: Insulin LISPRO 300 Unit/3 mL Inj SUBQ SCH ×4 (08:00→20:54)
[2016-10-31 08:12] LABS: Mean Corpuscular Hemoglobin 27.6 pg (27.0-35.0); Mean Corpuscular Volume 90.9 fL (81-100)
[2016-10-31 08:29] LABS: INR 1.04 ratio
[2016-10-31] MEDS: Sodium Chloride LOK Flush 10 mL Syringe IVFLUSH SCH ×3 (08:30→20:54)
[2016-10-31 08:48] LABS: TROPONIN T 0.01 ug/L (0.0-0.011)
[2016-10-31 09:00] LABS: Magnesium 2.1 mg/dL (1.6-2.6)
[2016-10-31] MEDS: Heparin 5,000 Unit/mL Inj SUBQ SCH ×2 (09:26→16:27)
--- NOTE | 2016-10-31 10:13 | NUR ---
Social Work: Initial Assessment/Multidisciplinary Rounds D: Per EMR review, pt is a 46 year old male admitted for R Pneumonia, Morbid Obesity. Pt is [facility] with [facility] supplement; pt has no LTC or VA benefits. PCP is through the [facility]. NOK is Genie Rhodes, s/o, . Advanced directives not completed- pt has this paperwork at home and will provide a copy once it is completed. Readmit score not entered at this time. Patient discussed in multidisciplinary rounds. The patient has had multiple readmissions in the last month. Pt is a transitioning female to male transgender individual on hormonal therapy. Pt's CHF continues to be challenging to manage. BRIDGE IRONWORKER HELPER informed resident provider of pt's home health through [facility] and requested an order to arrange for resumption of HH. BRIDGE IRONWORKER HELPER met with the patient at bedside. Sw role explained, contact information and d/c planning checklist provided. Pt confirms that he is still living in [place] with his s/o Genie. He uses a four wheeled walker at baseline for ambulation and lives in a single story home with no steps to enter. The patient has home 02 through [facility] along with a Trilogy machine through [employer] The patient confirms he is still followed by [facility] and it is his preference to remain with them. He has never had long term/rehab placements. The pt is requesting information on how to arrange for transportation through [employer]. BRIDGE IRONWORKER HELPER provided the patient with the [facility] Transportation phone number ( ) and instructed him to call this number to begin the process of getting on a regular schedule for transportation. He states that he will do this. The patient also is requesting a Front Wheeled Walker for use. BRIDGE IRONWORKER HELPER has requested a prescription for this DME from the resident provider. Case Management will fax clinical documentation and prescription once order is received. A: Pt who lives with his s/o and uses a FWW at baseline. P: Evolving; Anticipate pt will discharge home with resumed [facility] for RN, PT. BRIDGE IRONWORKER HELPER to fax prescription for FWW once order is received from resident/attending provider. BRIDGE IRONWORKER HELPER to continue to follow to assess for other discharge needs. ADARSH Escobar Addendum: 10/31/16 at 1023 by BALTA AUSTIN Amended: Joann added.
[2016-10-31] MEDS: Butalbital-Acet-Caffeine Tablet PO PRN ×2 (10:47→18:04)
[2016-10-31] MEDS ORDERED: Salmeterol 50 mcg/Puff 28 Inhalation Diskus INHALATION SCH (12:30)
[2016-10-31] MEDS ORDERED: Albuterol HFA 60 Puff 8 Gm Inhaler INHALATION PRN (12:30)
[2016-10-31] MEDS ORDERED: Butalbital-Acet-Caffeine Tablet PO PRN (12:40)
--- NOTE | 2016-10-31 12:55 | PCM.PNMED ---
Subjective Date of Service Oct 31, 2016 Subjective Subjective: Patient complaining of migraine this morning, and increased headaches since previous admission. Events Overnight: No acute events overnight. ROS: Shortness of breath, chest pain ongoing.Denies fever/chills, nausea/ vomiting, headache, weakness, abdominal pain, chest pain, shortness of breath, increased swelling in hands or feet. Exam Vital Signs Vital Sign - Last Date Time Temp Pulse Resp B/P Pulse Ox O2 Delivery O2 Flow Rate FiO2 10/31/16 10:03 70 10/31/16 09:16 Supplement Oxygen 10/31/16 09:16 36.6 32 125/59 92 6.00 Exam General: Morbidly obese, No acute distress, well-developed, well-nourished Head: Normocephalic, atraumatic. External ears without defect. Eyes: Pupils equal, round, and reactive to light and accommodation. Anicteric sclerae, moist conjunctivae. Neck: Normal range of motion, no lymphadenopathy noted Cardiovascular: Regular rate and rhythm with no murmurs, rubs, or gallops appreciated Pulmonary: Clear to auscultation bilaterally with no crackles, wheezes, or rhonchi. Exaggerated respiratory effort with no use of accessory muscles. Abdomen: Bowel tones present. Soft, obese, nontender, nondistended. Extremities: No clubbing, cyanosis, edema : Allison catheter in place Skin: Normal temperature, turgor, and texture; no rash, ulcers, or subcutaneous nodules appreciated. Neurological: Cranial nerves grossly intact. Reflexes, coordination, and sensory function within normal limits. Normal muscle strength, tone, and bulk. Psychiatric: Normal affect. Alert and oriented to person, place, and time IVs and Medications Medications Reviewed: Medications were reviewed in detail Medications High-risk medications include: Midazolam Lab and Diagnostics Result Diagram: 10/31/16 0804 10/31/16 0804 X-Rays, CTs and MRIs Chest x-ray with cardiomegaly and pulmonary edema. Final radiologist reading is pending. 12-lead ECG Sinus at a rate of 74 for RA progression across precordium Cardiac Echo Impressions Echocardiogram Report Name: LANDY ACOSTA FStudy Date: 10/25/2016 Hospital Exam Location: [facility] Gender: Female : 1970 Age: 46 yrs BP: 127/67 mmHg Reason For Study: RV strain Ordering Physician: Performed By: Berlin Draper Referring Physician: SERENITY GASCA Interpretation Summary The right ventricle grossly appears normal in size with probable normal systolic function. No significant change since prior study. The right ventricular systolic pressure is estimated at 46 mmHg assuming a right atrial pressure of 15 mm Hg. Compared to the prior echo exam, there has been no change in the severity of pulmonary hypertension. Additional Diagnostics LANDY ACOSTA F 1970 Male DateTimeAnalyzed 01:52:00 -_ pH ____7.354 - 7.350 7.450 pCO2 ___56.5__ -mmHg 35.0 45.0 pO2 ___91.3__ -mmHg 69.0 116 HCO3- ___30.7__ -mmol/L 22.0 26.0 ABE ____4.3__ -mmol/L -2.0 2.0 tHb ___12.9__ -g/dL 12.0 18.0 O2Hb ___93.6__ -% COHb ____2.1__ -% 0.0 1.5 MetHb ____0.6__ -% 0.4 1.5 sO2 ___96.2__ -% 25.0 FIO2 ___64.0__ -% Drawn By MM - Date/Time Notified____ 01:59:00 -_ Spontaneous_RR ___22.0__ -b/min Liter_Flow ___11.0__ -L/min Oxygen Device 1 __OXYMASK - Notified By MM - Notified Whom DR LEIBRAND - B 758 -mmHg tO2 ___17.0__ -Vol% Pb test _Positive - Assessment & Plan The pt is a 46 year old transgender, who identifies as a male with a history of asthma, CHF, diabetes with neuropathy who presents to the ED via EMS complaining of sudden onset of substernal chest pain that radiates to his right side, onset two hours prior to arrival. Acute on chronic diastolic congestive heart failure, present on admission -Initiate Lasix 80 mg IV twice a day -Initiate spironolactone 25 mg PO daily -Fluid restrict (2 L) and salt restricted diet -Monitor I's and O's and daily weights -Chest x-ray shows increased fluid Chest pain, acute, present on admission Likely related to fluid accumulation and breathing status secondary to CHF and obesity hypoventilation syndrome. Patient presented with similar pain on previous admissions treated effectively with IV Lasix. -Chest x-ray shows increased fluid, pneumonia process was considered however presentation is similar to previous admissions where patient's porcalcitonin and white count never elevated. -D-dimer consistently positive among previous visits CTA negative for PE last visit, no need to repeat -Serial troponins negative Obesity hypoventilation syndrome, chronic, present on admission -Patient uses Trilogy at home will proceed with checking nocturnal oximetry and may need to consider use of BiPAP while here -Patient on 4 L at home baseline Type II diabetes, chronic, present on admission Glucose 169 on arrival -Proceed with subcutaneous insulin protocol -Hemoglobin A1c 8.1 on 10/01/16 -Repeat hemoglobin A1c pending Hypothyroidism, chronic, present on admission -TSH 11.6 -Continue levothyroxine supplementation -Complete Thyroid panel pending Chronic bilateral lymphedema with stasis dermatitis, present on admission -Wound care consultation ordered -Patient did see wound care today also as an outpatient DVT prophylaxis: Heparin subcutaneous CODE STATUS: Full code VTE Prophylaxis: Sub-Q Enoxaparin Resuscitation Status: CPR: Attempt Resuscitation Attending Statement The patient was seen and examined together with Dr. Restrepo on 10/31/16 and I agree with the history, exam and plan as outlined in the note above. Sd Restrepo DO Oct 31, 2016 11:58 Marlo Martines Oct 31, 2016 17:32
--- NOTE | 2016-10-31 15:43 | NUR ---
Multidisciplinary Communication 08 - Paged Dr. Vega on the [facility] resident team as the patient was complaining of a migraine headache and said that the Tylenol was not helping. 08 - Found Dr. Vega in the hallway and spoke to him about his pain. He said he would order something. 0843 - Paged Dr. Vega as the patient was requesting his home doses of Prozac for anxiety and Fioricet for his migraines. Dr. Vega placed the orders. 913 - Contacted the pharmacy to have these medications acknowledged and the Fioricet delivered. 929 - Discussed his care with Dr. Vega and the rest of the multidisciplinary care team during morning rounds. Social Work brought up that he had requested a front wheeled walker even though he has a four-wheeled walker at home and has not been using a walker while here in the hospital. Confirmed with Dr. Vega that he wanted the patient on a 2000mls fluid restriction per [address] Vega noted that this patient tends to be very needy and that staff need to keep on eye out for him trying to sneak chewing tobacco. 1015 - Spoke to Pharmacist Franck Garcia as the Prozac and Fioricet had not been acknowledged or delivered yet. He said he hadn't had a chance to acknowledge them yet, but that he would. 1330 - Gabapentin was ordered and the patient said he wanted it as soon as possible as his legs were hurting. Communicated this with Franck. 1335 - Called Respiratory Therapist Darshana to set up a hospital CPAP as his family was not able to bring his own in at this time. 1352 - Spoke to Pharmacist Franck and asked if his Gabapentin could be acknowledged as Franck was busy with another task and hadn't been able to acknowledge it himself. It was acknowledged and given to the patient. 1525 - Called IV therapy and asked if another IV could be started on him, per his request, as he was saying the working IV in his right AC area was hurting him. 1545 - Called Pharmacy and asked if his 1230 dose of Advair could be sent up. They said according to their records it had already been sent. This nurse checked the tube system and the patient's medication drawers, but was unable to find it. They said another one would be sent up. 1600 - IV Therapy placed a peripheral IV. Frequent calling - The patient has placed his call light on at least 3-4 times per hour throughout the day. He seems to be fairly needy asking for random little things and obsessing over not being able to have a bowel movement since yesterday. Care continues.
[2016-10-31] MEDS: Fluticasone-Salmeterol 100-50 Inhaler INHALATION SCH ×2 (16:27→20:54)
[2016-10-31] MEDS: Albuterol 2.5 mg/3 mL Inhalation Solution NEB PRN (20:34)
[2016-10-31] MEDS ORDERED: Magnesium Hydroxide 10 mL Oral Concentration PO PRN (20:55)
[2016-10-31] MEDS ORDERED: Methylnaltrexone 12 mg/0.6 mL Inj SUBQ ONE (21:00)
[2016-11-01] VITALS (12 sets, daily range): BP systolic 124–159; BP diastolic 54–77; PULSE 61–85; RESP 20–28; O2SAT 91–100
[2016-11-01] MEDS: Heparin 5,000 Unit/mL Inj SUBQ SCH ×4 (00:18→23:21)
[2016-11-01 03:10] LABS: Free Thyroxine Index 2.6 (1.2-4.9); Thyroxine (T4) 8.5 ug/dL (4.5-12.0)
[2016-11-01 03:40] LABS: BASOPHILS % (AUTO) 0 % (0-3); EOSINOPHILS % (AUTO) 0 % (0-5); MONOCYTES % (AUTO) 7.6 % (4-12); Mean Corpuscular Volume 91.5 fL (81-100); NEUTROPHILS % (AUTO) 75.2 % (40-74); Platelet Count 173 bil/L (150-400)
--- NOTE | 2016-11-01 05:23 | NUR ---
@ times during the night I asked patient if he was ready to go on the vpap. Both times I was told no thet he was "sleepy enough". Nurse informed
--- NOTE | 2016-11-01 06:10 | NUR ---
Respiratory / Bowels Pt initially on 6L of oxygen at HS; SpO2 96% during each assessment. Weaned to 5L, SpO2 on rechecks approx. 94%. At HS, patient reporting severe pain in abdomen related to constipation; stated "The miralax and the senna didn't do anything for me, but if you get me milk of mag, I'll be going instantly." Orders obtained for milk of mag and administered; pt had 3 bowel movements this shift with the last turning to loose diarrhea. This AM, awad output darkened with red tint and chunks; notified, no new orders placed at this time. VSS. Tele SR 70s.
[2016-11-01] MEDS: Insulin LISPRO 300 Unit/3 mL Inj SUBQ SCH ×4 (08:00→21:04)
[2016-11-01] MEDS: Sodium Chloride LOK Flush 10 mL Syringe IVFLUSH SCH ×3 (08:19→21:01)
[2016-11-01] MEDS: Furosemide 10 mg/mL 10 mL Inj IVPUSH SCH ×2 (08:29→21:00)
[2016-11-01] MEDS: Fluticasone-Salmeterol 100-50 Inhaler INHALATION SCH ×2 (08:29→21:00)
--- NOTE | 2016-11-01 10:45 | NUR ---
SpO2 /BG found pt with NC off face this AM. SpO2 in the low 60s however back up to low 90s with 5L NC back on. Pt very drowsy however arouses and able to answer questions. Pt BG checked at 0800 showing pt BG 60, orange juice given with meds and pt able to have breakfast. BG 161 at 1030. Ongoing care.
--- NOTE | 2016-11-01 10:56 | NUR ---
DME REQUEST: Faxed prescription and clinical to [facility] in [place] per COLOR CORRECTOR and MD orders. Updated COLOR CORRECTOR
--- NOTE | 2016-11-01 13:32 | NUR ---
Allison discontinued Allison DC'd at about 1130 per MD's order. Pt tolerated procedure well. Pt stating has voided twice. ongoing care.
[2016-11-01] MEDS: Albuterol 2.5 mg/3 mL Inhalation Solution NEB PRN (15:30)
[2016-11-01] MEDS ORDERED: Furosemide 10 mg/mL 4 mL Inj IVPUSH ONE (16:45)
--- NOTE | 2016-11-01 19:23 | NUR ---
Allison Allison placed per MD's order. 500cc of oriana urine returned. Patient tolerated procedure well. Right leg wrapped and elevated on pillow. report given to oncoming RN.
--- NOTE | 2016-11-01 19:48 | PCM.PNMED ---
Subjective Date of Service Nov 01, 2016 Subjective Subjective: Patient sitting upright on examination. Patient states that he feels considerably better this morning and is breathing appropriately. He states that he has had problems with urinary retention in the past and would like a trial off of the Allison. Allison was discontinued for a short while. Later that day the patient developed increased pain in the right thigh area. Orthopedics was consulted and suggested wrapping the area and elevating it. Due to the patient being immobile for a time Allison was replaced. Events Overnight: Patient ordered BiPAP however did not wear this at night. Patient was on oxygen which somehow came off. As a nurse came in the morning she noted that his saturation was in the 60s. Patient was subsequently placed back on oxygen. Blood glucose was also low at this time and patient was awoken to drink orange juice for glucose supplementation. ROS: Minor chest pain. Denies fever/chills, nausea/vomiting, headache, weakness , abdominal pain, shortness of breath, increased swelling in hands or feet. Exam Vital Signs Vital Sign - Last Date Time Temp Pulse Resp B/P Pulse Ox O2 Delivery O2 Flow Rate FiO2 11/01/16 19:25 Supplement Oxygen 11/01/16 19:25 36.7 71 22 144/70 96 3.50 Intake and Output 10/31/16 10/31/16 11/01/16 Cumulative From/Thru 15:00 23:00 07:00 10/30/16 23:04 - 11/01/16 06:54 Intake Total 978 ml 350 ml 1328 ml Output Total 1500 ml 1250 ml 2750 ml Balance -522 ml -900 ml -1422 ml Intake Oral 978 ml 350 ml 1328 ml Output Urine Total 1500 ml 1250 ml 2750 ml Exam General: Morbidly obese, No acute distress, well-developed, well-nourished Head: Normocephalic, atraumatic. External ears without defect. Eyes: Pupils equal, round, and reactive to light and accommodation. Anicteric sclerae, moist conjunctivae. Neck: Normal range of motion, no lymphadenopathy noted Cardiovascular: Regular rate and rhythm with no murmurs, rubs, or gallops appreciated Pulmonary: Clear to auscultation bilaterally with no crackles, wheezes, or rhonchi. Exaggerated respiratory effort with no use of accessory muscles. Abdomen: Bowel tones present. Soft, obese, nontender, nondistended. Extremities: No clubbing, cyanosis, edema : Allison catheter in place Skin: Normal temperature, turgor, and texture; no rash, ulcers, or subcutaneous nodules appreciated. Neurological: Cranial nerves grossly intact. Reflexes, coordination, and sensory function within normal limits. Normal muscle strength, tone, and bulk. Psychiatric: Normal affect. Alert and oriented to person, place, and time Lab and Diagnostics Result Diagram: 11/01/16 0303 11/01/16 0303 X-Rays, CTs and MRIs Chest x-ray with cardiomegaly and pulmonary edema. Final radiologist reading is pending. 12-lead ECG Sinus at a rate of 74 for RA progression across precordium Cardiac Echo Impressions Echocardiogram Report Name: LANDY ACOSTA FStudy Date: 10/25/2016 [facility] Exam Location: [facility] Gender: Female : 1970 Age: 46 yrs BP: 127/67 mmHg Reason For Study: RV strain Ordering Physician: Performed By: Berlin Draper Referring Physician: SERENITY GASCA Interpretation Summary The right ventricle grossly appears normal in size with probable normal systolic function. No significant change since prior study. The right ventricular systolic pressure is estimated at 46 mmHg assuming a right atrial pressure of 15 mm Hg. Compared to the prior echo exam, there has been no change in the severity of pulmonary hypertension. Additional Diagnostics LANDY ACOSTA F 1970 Male DateTimeAnalyzed 01:52:00 -_ pH ____7.354 - 7.350 7.450 pCO2 ___56.5__ -mmHg 35.0 45.0 pO2 ___91.3__ -mmHg 69.0 116 HCO3- ___30.7__ -mmol/L 22.0 26.0 ABE ____4.3__ -mmol/L -2.0 2.0 tHb ___12.9__ -g/dL 12.0 18.0 O2Hb ___93.6__ -% COHb ____2.1__ -% 0.0 1.5 MetHb ____0.6__ -% 0.4 1.5 sO2 ___96.2__ -% 25.0 FIO2 ___64.0__ -% Drawn By MM - Date/Time Notified____ 01:59:00 -_ Spontaneous_RR ___22.0__ -b/min Liter_Flow ___11.0__ -L/min Oxygen Device 1 __OXYMASK - Notified By MM - Notified Whom DR LEES - B 758 -mmHg tO2 ___17.0__ -Vol% Pb test _Positive - Assessment & Plan The pt is a 46 year old transgender, who identifies as a male with a history of asthma, CHF, diabetes with neuropathy who presents to the ED via EMS complaining of sudden onset of substernal chest pain that radiates to his right side, onset two hours prior to arrival. Acute on chronic diastolic congestive heart failure, present on admission -Continue Lasix 80 mg IV twice a day -Continue spironolactone 25 mg PO daily -Continue Fluid restriction (2 L) and salt restricted diet -Monitor I's and O's and daily weights -Chest x-ray shows increased fluid Chest pain, acute, present on admission Likely related to fluid accumulation and breathing status secondary to CHF and obesity hypoventilation syndrome. Patient presented with similar pain on previous admissions treated effectively with IV Lasix. Patient received Trilogy at home but has not yet used anything for nightly pressure support. Once this begins I expect that he will not need to be diuresed quite as often. -Chest x-ray shows increased fluid, pneumonia process was considered however presentation is similar to previous admissions where patient's porcalcitonin and white count never elevated. -D-dimer consistently positive among previous visits CTA negative for PE last visit, no need to repeat -Serial troponins negative Obesity hypoventilation syndrome, chronic, present on admission -BiPAP while here. Patient has Trilogy machine at home -Patient on 4 L at home baseline Type II diabetes, chronic, present on admission Glucose 169 on arrival -Proceed with subcutaneous insulin protocol -Hemoglobin A1c 8.1 on 10/01/16 -Repeat hemoglobin A1c pending Hypothyroidism, chronic, present on admission -TSH 11.6 -Continue levothyroxine supplementation -Complete Thyroid panel pending Chronic bilateral lymphedema with stasis dermatitis, present on admission -Wound care consultation ordered -Patient did see wound care today also as an outpatient -Increased pain today in the right leg, x-rays ordered per recommendations of ortho DVT prophylaxis: Heparin subcutaneous CODE STATUS: Full code VTE Prophylaxis: Sub-Q Enoxaparin Resuscitation Status: CPR: Attempt Resuscitation Attending Statement The patient was seen and examined together with Dr. Restrepo on 11/01/2016 and I agree with the history, exam and plan as outlined in the note above. . Sd Restrepo DO Nov 01, 2016 19:48 Tera Yee MD Nov 03, 2016 06:38
[2016-11-01] MEDS: Pantoprazole 20 mg ER24 Tablet PO SCH (21:00)
[2016-11-01] MEDS: oxyCODONE-Acetamin 5-325 mg Tablet PO PRN (21:01)
[2016-11-02] VITALS (7 sets, daily range): BP systolic 110–164; BP diastolic 58–80; PULSE 60–95; RESP 18–20; O2SAT 93–98
[2016-11-02 02:36] LABS: Mean Corpuscular Hemoglobin 28.3 pg (27.0-35.0); Mean Corpuscular Volume 91.6 fL (81-100)
[2016-11-02] MEDS: oxyCODONE-Acetamin 5-325 mg Tablet PO PRN (03:20)
--- NOTE | 2016-11-02 06:15 | NUR ---
Anxiety/Pain Pt gets anxious and panic attack last night. She c/o latrell wrap on right leg making her feel claustrophobic and request to remove it. She refused the leg xray last night. Md made aware of it. Pt wore the Bipap for only about 45 mins -1 hour and started to panic. She has not wore it afterwards tonight. She continues to c/o migraine headache and reports not much relief from Percocet. Pt requested coffee tonight and Md made aware. Enc patient about coffee especially since she is anxious already. Pt requested and asked to have coffee. She reports that coffee sometimes help her migraine headache. She continued to c/o headache and requests pain meds even though she reports no relief from Percocet. Pt noted to be sleeping for few hours this am. She preferred to be sitting up on the pull out bed than the regular bed. Pt was able to ambulate from bed to bathroom and futon bed using FWW. She did not c/o leg pain tonight and mostly c/o her migraine headache. Lasix IV dose given last night. Allison patent with urine output of 4400 cc.
[2016-11-02] MEDS: Fluticasone-Salmeterol 100-50 Inhaler INHALATION SCH ×2 (08:09→21:01)
[2016-11-02] MEDS: Insulin LISPRO 300 Unit/3 mL Inj SUBQ SCH ×4 (08:11→21:21)
[2016-11-02] MEDS: Furosemide 10 mg/mL 10 mL Inj IVPUSH SCH (08:11)
[2016-11-02] MEDS: Sodium Chloride LOK Flush 10 mL Syringe IVFLUSH SCH ×2 (08:11→16:23)
[2016-11-02] MEDS: Pantoprazole 20 mg ER24 Tablet PO SCH ×2 (08:12→21:01)
[2016-11-02] MEDS: Heparin 5,000 Unit/mL Inj SUBQ SCH ×2 (08:15→17:15)
[2016-11-02] MEDS ORDERED: Nystatin 100,000 Unit/Gm 15 Gm Powder TOPICAL PRN (15:55)
--- NOTE | 2016-11-02 16:55 | PCM.PNMED ---
Subjective Date of Service Nov 02, 2016 Subjective Subjective: Patient continues to have minor shortness of breath however she states that breathing is much improved. Requests his dose of testosterone which is due around this time. States that he will leave AMA if he does not get it. Events Overnight: Patient took his dose of temazepam however continued to be moderately agitated complaining of headache. Around midnight patient asked for a cup of coffee which was provided. Patient was scheduled to be on BiPAP overnight however became incredibly anxious and could not stand to wear it for more than 45 minutes. Patient also became claustrophobic and took the wrappings off his leg. ROS: Increased swelling in the legs, increased pain of the right leg. Denies fever/chills, nausea/vomiting, headache, weakness, abdominal pain, chest pain, shortness of breath, increased swelling in hands or feet. Exam Vital Signs Vital Sign - Last Date Time Temp Pulse Resp B/P Pulse Ox O2 Delivery O2 Flow Rate FiO2 11/02/16 12:07 36.7 66 20 164/80 98 Nasal Cannula 3.00 11/01/16 23:58 36 Intake and Output 11/01/16 11/01/16 11/02/16 Cumulative From/Thru 15:00 23:00 07:00 10/30/16 23:04 - 11/02/16 06:44 Intake Total 1350 ml 700 ml 3378 ml Output Total 1400 ml 4400 ml 8550 ml Balance -50 ml -3700 ml -5172 ml Intake Oral 1350 ml 700 ml 3378 ml Output Urine Total 1400 ml 4400 ml 8550 ml # Voids 2 2 Exam General: Morbidly obese, No acute distress, well-developed, well-nourished Head: Normocephalic, atraumatic. External ears without defect. Eyes: Pupils equal, round, and reactive to light and accommodation. Anicteric sclerae, moist conjunctivae. Neck: Normal range of motion, Cardiovascular: Regular rate and rhythm with no murmurs, rubs, or gallops appreciated Pulmonary: Clear to auscultation bilaterally with no crackles, wheezes, or rhonchi. Exaggerated respiratory effort with no use of accessory muscles. Abdomen: Bowel tones present. Soft, morbidly obese, nontender, nondistended. Extremities: No clubbing, cyanosis, lower extremities are extremely swollen, difficult to tell whether this is due to edema or adipose tissue. Right leg is mildly erythematous and is painful to moderate palpation Skin: Normal temperature, turgor, and texture; no rash, ulcers, or subcutaneous nodules appreciated. Neurological: Cranial nerves grossly intact. Reflexes, coordination, and sensory function within normal limits. Normal muscle strength, tone, and bulk. Psychiatric: Normal affect. Alert and oriented to person, place, and time IVs and Medications Medications Reviewed: Medications were reviewed in detail Medications High-risk medications include: Temazepam Percocet Lab and Diagnostics Result Diagram: 11/02/1621411/02/16214 X-Rays, CTs and MRIs Chest x-ray with cardiomegaly and pulmonary edema. Final radiologist reading is pending. 12-lead ECG Sinus at a rate of 74 for RA progression across precordium Cardiac Echo Impressions Echocardiogram Report Name: LANDY ACOSTA FStudy Date: 10/25/2016 [facility] Exam Location: [facility] Gender: Female : 1970 Age: 46 yrs BP: 127/67 mmHg Reason For Study: RV strain Ordering Physician: Performed By: Berlni Draper Referring Physician: SERENITY GASCA Interpretation Summary The right ventricle grossly appears normal in size with probable normal systolic function. No significant change since prior study. The right ventricular systolic pressure is estimated at 46 mmHg assuming a right atrial pressure of 15 mm Hg. Compared to the prior echo exam, there has been no change in the severity of pulmonary hypertension. Additional Diagnostics LANDY ACOSTA F 1970 Male DateTimeAnalyzed 01:52:00 -_ pH ____7.354 - 7.350 7.450 pCO2 ___56.5__ -mmHg 35.0 45.0 pO2 ___91.3__ -mmHg 69.0 116 HCO3- ___30.7__ -mmol/L 22.0 26.0 ABE ____4.3__ -mmol/L -2.0 2.0 tHb ___12.9__ -g/dL 12.0 18.0 O2Hb ___93.6__ -% COHb ____2.1__ -% 0.0 1.5 MetHb ____0.6__ -% 0.4 1.5 sO2 ___96.2__ -% 25.0 FIO2 ___64.0__ -% Drawn By MM - Date/Time Notified____ 01:59:00 -_ Spontaneous_RR ___22.0__ -b/min Liter_Flow ___11.0__ -L/min Oxygen Device 1 __OXYMASK - Notified By MM - Notified Whom DR LEIBRAND - B 758 -mmHg tO2 ___17.0__ -Vol% Pb test _Positive - Assessment & Plan The pt is a 46 year old transgender, who identifies as a male with a history of asthma, CHF, diabetes with neuropathy who presents to the ED via EMS complaining of sudden onset of substernal chest pain that radiates to his right side, onset two hours prior to arrival. Acute on chronic diastolic congestive heart failure, present on admission -Discontinued IV Lasix as the patient put out more than 5 L in the last 2 days -Continue spironolactone 25 mg PO daily -Continue Fluid restriction (2 L) and salt restricted diet -Monitor I's and O's and daily weights Chest pain, acute, present on admission Likely related to fluid accumulation and breathing status secondary to CHF and obesity hypoventilation syndrome. Patient presented with similar pain on previous admissions treated effectively with IV Lasix. Patient received Trilogy at home but has not yet used anything for nightly pressure support. Once this begins I expect that he will not need to be diuresed quite as often. - Patient currently refusing BiPAP as this causes panic attacks - Continue PO diuresis - Continue to monitor I's and O's and daily weights Obesity hypoventilation syndrome, chronic, present on admission -Patient ordered BiPAP while here. Patient has Trilogy machine at home -Patient on 4 L at home baseline -Patient not currently using BiPAP at nighttime as prescribed due to panic attacks. History of bladder fluid retention Per patient history last time he was given Lasix his creatinine increased significantly. Per his history it appears that this may be due to hydronephrosis from fluid retention, however I could find no records of this. Allison was placed this admission with administration of high-dose diuretics, and removed per patient request on 11/01, however this was immediately replaced as patient became suddenly immobile due to increased pain in the right leg. Allison catheter was again removed on 11/02 will trial patient if Allison. If patient appears to be retaining we will scan the bladder at that time. Chronic Dx include: Chronic bilateral lymphedema, present on admission. Stable. - Ordered wound care consultation. - Physical therapy consulted Hypothyroidism, chronic, present on admission -TSH 11.6 -Complete Thyroid panel shows normal T3, T4, free T4 -Continue levothyroxine 300 g daily. Asthma, present on admission. Stable. - Continue home inhalers including Dulera 2 puffs inhaled twice a day and Advair 1 puff inhaled twice a day. - Continue fexofenadine 180 mg daily, Flonase one spray intranasally twice a day , and montelukast 10 mg daily at bedtime. - Ordered Duonebs 4 times a day while awake and albuterol nebs every 2 hours as needed for shortness of breath. - Continue supplemental oxygen as needed. Baseline oxygen requirement 4L. Diabetes mellitus type II, non-insulin using, with neuropathy, present on admission. Stable. - Hemoglobin A1c 8.1% 10/01/2016. - Held metformin and glyburide. - Ordered low-dose correctional scale insulin. - Continue Gabapentin 300 mg 3 times a day. Anxiety with panic attacks, present on admission. Stable. - Continue fluoxetine 40 mg daily. Transgender - Patient is on testosterone therapy. - We discussed thoroughly the risks and benefits of testosterone therapy at this time, the patient is aware that taking testosterone could lead to clots which could potentially travel to the lung and cause serious respiratory distress if not failure, possibly leading to the patient's demise. He stated that this was a risk that he was willing to take. Morbid obesity, present on admission. Stable. - BMI 68.5. - Ordered physical therapy. Chronic pain with opiate habituation, present on admission. Stable. - Continue Soma 350 mg twice daily as needed for muscle spasm and oxycodone 5 mg every 4 hours as needed for pain. - Ordered Colace 200 mg twice a day scheduled for opiate-induced constipation. May consider Relastor in future if constipation is persistent. GERD, present on admission. Stable. - Continue Protonix 40 mg twice a day before meals. Hyperlipidemia, present on admission. Stable. - Continue aspirin 81 mg and atorvastatin 80 mg daily at bedtime. Insomnia, present on admission. Stable. - Continue temazepam 7.5 mg at bedtime. Migraine headaches, present on admission. Stable. - Continue Fioricet every 6 hours as needed for migraine headaches. Counseled the patient regarding medication and potential rebound migraine headaches with use. Chronic bilateral lymphedema with stasis dermatitis, present on admission -Wound care consultation ordered -Patient did see wound care today also as an outpatient -Increased pain today in the right leg, x-rays ordered per recommendations of ortho DVT prophylaxis: Heparin subcutaneous CODE STATUS: Full code VTE Prophylaxis: Sub-Q Enoxaparin Resuscitation Status: CPR: Attempt Resuscitation Attending Statement The patient was seen and examined together with Dr. Restrepo on 11/02/2016 and I agree with the history, exam and plan as outlined in the note above. . Sd Restrepo DO Nov 02, 2016 16:55 Tera Yee MD Nov 03, 2016 06:39
--- NOTE | 2016-11-02 18:18 | NUR ---
Anxiety/Risk of Suicide or self harm This RN entered room to find pt tearful. He stated that he was a burden to his family and wished he had not been born the way he is. Pt stated that he at times thinks of suicide, but does not have any plans. He confided in this RN that he has never told anyone that before. RN asked pt if he would like to speak to section maintainer, to which he was agreeable. Risk of suicide was added to care plan. RN was called back to the room by DEANA. Pt was having anxiety attack and was trying to pull out his IV. He stated that it had to come out because it was painful. Pt also became tearful and stated that he hated the way he was born, and doesn't want to be a burden to his family. Pt was calmed and became agreeable to a new IV placement so that the painful IV could be removed. IV was dc'd intact, site did not have any signs or symptoms of phlebitis.
[2016-11-03] MEDS: Heparin 5,000 Unit/mL Inj SUBQ SCH ×2 (00:30→08:22)
[2016-11-03] MEDS: Sodium Chloride LOK Flush 10 mL Syringe IVFLUSH SCH ×2 (01:11→08:22)
[2016-11-03 02:51] LABS: Mean Corpuscular Hemoglobin 27.9 pg (27.0-35.0); Mean Corpuscular Volume 91.1 fL (81-100)
[2016-11-03 03:05] VITALS: BP 125/64; PULSE 65; RESP 20; O2SAT 97
--- NOTE | 2016-11-03 06:21 | NUR ---
Anxiety Appears anxious throughout shift. Frequent 1:1 provided and effective. Per report patient had stated thoughts of suicide which he has denied any suicidal thoughts or plans this shift.
[2016-11-03 08:00] VITALS: BP 121/54; PULSE 65; RESP 23; O2SAT 99
[2016-11-03] MEDS: Insulin LISPRO 300 Unit/3 mL Inj SUBQ SCH ×2 (08:00→12:00)
[2016-11-03] MEDS: Pantoprazole 20 mg ER24 Tablet PO SCH (08:21)
[2016-11-03] MEDS: Fluticasone-Salmeterol 100-50 Inhaler INHALATION SCH (08:21)
[2016-11-03] MEDS ORDERED: SPIR25TA PO (10:33)
[2016-11-03] MEDS ORDERED: TORS20TA PO (10:33)
[2016-11-03] MEDS ORDERED: WALK1EAC55 MC (10:40)
--- NOTE | 2016-11-03 11:02 | PCM.DIMED ---
Sd Restrepo DO 11/03/16 1102: Discharge Instructions Date of Service Nov 03, 2016 Dates of Hospitalization Oct 31, 2016 at 03:21 Discharge Diagnosis Discharge Diagnosis Acute on chronic diastolic congestive heart failure Chest pain Obesity hypoventilation syndrome History of bladder fluid retention Chronic bilateral lymphedema Hypothyroidism Asthma Diabetes mellitus type II Anxiety with panic attacks Morbid obesity Chronic pain with opiate habituation GERD Hyperlipidemia Insomnia Migraine headaches Chronic bilateral lymphedema with stasis dermatitis Medication Instructions Additional med instructions We would like you to continue taking your home meds with the following exceptions: Please take spironolactone 20 mg daily, and torsemide 40 mg per day Do not continue to take furosemide as previously prescribed. You have also been prescribed a walker for ambulation Test Results Test Results An x-ray completed here is consistent with CHF exacerbation. Diet Discharge Diet: Low fat, Low Sodium, Heart Healthy, Diabetic Activity Discharge Activity: No restrictions Call your provider Call your provider for: Fever or Chills, Shortness of breath, Bleeding, Chest pain, Vomitting, Excessive diarrhea, Weakness (unilateral) Patient Instructions Patient Instructions Your visit here in the hospital today and is likely result of your congestive heart failure combined with multiple medical problems including obesity hypoventilation syndrome. We would like you to continue taking the medications as described above, however in addition to these changes would suggest that you begin a daily regimented diet plan and strict control of your diabetes. It is imperative that you cut out all carbohydrates from your diet this includes bread , pasta, rice, potatoes, and fruit juices. Grade resources for diet improvement include "the diabetes solution" by Armando Donovan as well as [employer]. In addition, it is imperative that you begin using the trilogy machine at home during sleep. Many of your current medical issues can be traced back to your sleep apnea, and initiation of use of the trilogy machine at night consistently will add great benefit. Follow-up plan We would like you to follow-up with her primary care provider for which you have an appointment on November 06. We would also like you to follow-up with your printed circuit boards pinner, Dr. Kaiser, within the next 2-3 weeks if possible, who will continue to monitor your thyroid and diabetes progression. We would also like you to see a pension agent who can give recommendations as far as optimization of inhaled medications, as many of the inhalers that you currently take our redundant and likely unnecessary. This can be best arranged by your primary care provider. Follow-up Provider: [facility] Follow-up with PCP in: 1 week Provider: OTHER,PHYSICIAN Follow-up in: 3 weeks (Dr. Kaiser) Tera Yee MD 11/03/16 1544: Discharge Instructions Attending's Statement The patient was seen and examined together with Dr. Restrepo on 11/03/2016 and I agree with the history, exam and plan as outlined in the note above. . Sd Restrepo DO Nov 03, 2016 11:02 Tera Yee MD Nov 03, 2016 15:44
--- NOTE | 2016-11-03 11:22 | PCM.DC.MED ---
Discharge Summary Date of Service Nov 03, 2016 Dates of Hospitalization Date of Hospital Admission Oct 31, 2016 at 03:21 Date of Discharge: Nov 03, 2016 Providers: Admitting Physician: Kelly Gold MD Primary Care Physician: Clinic,[facility] Residency Attending Physician: Tera Yee MD Diagnosis at Time of Discharge Diagnosis at Time of Discharge Acute on chronic diastolic congestive heart failure Chest pain Obesity hypoventilation syndrome History of bladder fluid retention Chronic bilateral lymphedema Hypothyroidism Asthma Diabetes mellitus type II Anxiety with panic attacks Morbid obesity Chronic pain with opiate habituation GERD Hyperlipidemia Insomnia Migraine headaches Chronic bilateral lymphedema with stasis dermatitis Procedures XRay, CTs & MRIs Chest x-ray with cardiomegaly and pulmonary edema. Final radiologist reading is pending. ECG 12 Lead Sinus at a rate of 74 for RA progression across precordium Cardiac Echo Impression Echocardiogram Interpretation Summary The right ventricle grossly appears normal in size with probable normal systolic function. No significant change since prior study. The right ventricular systolic pressure is estimated at 46 mmHg assuming a right atrial pressure of 15 mm Hg. Compared to the prior echo exam, there has been no change in the severity of pulmonary hypertension. Reading Physician:LANDY Alejandra 1970 Male DateTimeAnalyzed 01:52:00 -_ pH ____7.354 - 7.350 7.450 pCO2 ___56.5__ -mmHg 35.0 45.0 pO2 ___91.3__ -mmHg 69.0 116 HCO3- ___30.7__ -mmol/L 22.0 26.0 ABE ____4.3__ -mmol/L -2.0 2.0 tHb ___12.9__ -g/dL 12.0 18.0 O2Hb ___93.6__ -% COHb ____2.1__ -% 0.0 1.5 MetHb ____0.6__ -% 0.4 1.5 sO2 ___96.2__ -% 25.0 FIO2 ___64.0__ -% Drawn By MM - Date/Time Notified____ 01:59:00 -_ Spontaneous_RR ___22.0__ -b/min Liter_Flow ___11.0__ -L/min Oxygen Device 1 __OXYMASK - Notified By MM - Notified Whom DR LEIBRAND - B 758 -mmHg tO2 ___17.0__ -Vol% Pb test _Positive - Brief History Taken from H&P completed by Kelly Gold: Is a 46-year-old transgender who identifies as male who presents with increasing shortness of breath and substernal chest pain which started about 9: 45 PM. He was recently hospitalized here for acute diastolic on chronic congestive heart failure exacerbation. Patient was started on Trilogy at home for hypoventilation syndrome secondary to morbid obesity. Patient does note increased swelling of the bilateral lower extremities. He does have bilateral lower extremity lymphedema. Also has a history of type II diabetes. Patient has a chest pain is not present with palpation or is not worsened by movement or inspiration. Chest x-ray is consistent with pulmonary edema and cardiomegaly. Initial troponin is 0.010. Patient was hospitalized here from OctoberOctober 24 until October 27 as mentioned for acute on chronic diastolic congestive heart failure. At that time repeat echocardiogram showed right ventricular grossly appears normal in size with probable normal systolic function no significant change since prior study. The right ventricular systolic pressure was estimated at 46 mmHg assuming a right atrial pressure 15 mmHg. Compared to prior echo exam there has been no change in the severity of pulmonary hypertension. Hospital Course The pt is a 46 year old transgender, who identifies as a male with a history of asthma, CHF, diabetes with neuropathy who presents to the ED via EMS complaining of sudden onset of substernal chest pain that radiates to his right side, onset two hours prior to arrival. Patient has recently been optimized through his inpatient stay and may be discharged home at this time, however the patient requires close follow-up and repeated close monitoring by home health. To the patient's decreased mobility status he is largely homebound and is able to participate in very few visits outside of the home even for medical follow-up. Previously home health nursing and physical therapy were involved with this patient, however at this time we feel it is important that the patient also receive close follow-up by home health for CHF management including telemetry monitoring. The patient will also benefit from home health bath aid as well as home health social work. Acute on chronic diastolic congestive heart failure, present on admission -Continue spironolactone 25 mg PO daily -Continue torsemide 40 mg daily -Continue Fluid restriction (2 L) and salt restricted diet Chest pain, acute, present on admission Likely related to fluid accumulation and breathing status secondary to CHF and obesity hypoventilation syndrome. Patient presented with similar pain on previous admissions treated effectively with IV Lasix. Patient received Trilogy at home but has not yet used anything for nightly pressure support. Once this begins I expect that he will not need to be diuresed quite as often. - Patient currently refusing BiPAP as this causes panic attacks - Continue PO diuresis Obesity hypoventilation syndrome, chronic, present on admission -Patient ordered BiPAP while here. Patient has Trilogy machine at home -Patient on 4 L at home baseline -Patient not currently using BiPAP at nighttime as prescribed due to panic attacks. History of bladder fluid retention Per patient history last time he was given Lasix his creatinine increased significantly. Per his history it sounds as though this may have been due to hydronephrosis from fluid retention, however I could find no records of this. Allison was placed this admission with administration of high-dose diuretics, and removed per patient request on 11/01, however this was immediately replaced as patient became suddenly immobile due to increased pain in the right leg. Allison catheter was again removed on 11/02 Chronic Dx include: Chronic bilateral lymphedema, present on admission. Stable. - Physical therapy consulted Hypothyroidism, chronic, present on admission -TSH 11.6 -Complete Thyroid panel shows normal T3, T4, free T4 -Continue levothyroxine 300 g daily. -Patient follow-up with auto slip cover installer Asthma, present on admission. Stable. - Continue home inhalers as needed - Continue fexofenadine 180 mg daily, Flonase one spray intranasally twice a day , and montelukast 10 mg daily at bedtime. - Continue supplemental oxygen as needed. Baseline oxygen requirement 4L. Diabetes mellitus type II, non-insulin using, with neuropathy, present on admission. Stable. - Hemoglobin A1c 8.1% 10/01/2016. -Continue metformin and glyburide. - Continue Gabapentin 300 mg 3 times a day for neuropathy Anxiety with panic attacks, present on admission. Stable. - Continue fluoxetine 40 mg daily. Transgender - Patient is on testosterone therapy. - We discussed thoroughly the risks and benefits of testosterone therapy at this time, the patient is aware that taking testosterone could lead to clots which could potentially travel to the lung and cause serious respiratory distress if not failure, possibly leading to the patient's demise. He stated that this was a risk that he was willing to take. - Follow-up with auto slip cover installer Morbid obesity, present on admission. Stable. - BMI 68.5. - Ordered physical therapy. Chronic pain with opiate habituation, present on admission. Stable. - Continue Soma 350 mg twice daily as needed for muscle spasm and oxycodone 5 mg every 4 hours as needed for pain. - Ordered Colace 200 mg twice a day scheduled for opiate-induced constipation. May consider Relastor in future if constipation is persistent. GERD, present on admission. Stable. - Continue Protonix 40 mg twice a day before meals. Hyperlipidemia, present on admission. Stable. - Continue aspirin 81 mg and atorvastatin 80 mg daily at bedtime. Insomnia, present on admission. Stable. - Continue temazepam 7.5 mg at bedtime. Migraine headaches, present on admission. Stable. - Continue Fioricet every 6 hours as needed for migraine headaches. Counseled the patient regarding medication and potential rebound migraine headaches with use. Chronic bilateral lymphedema with stasis dermatitis, present on admissiont - Patient removed wrap suggested by ortho, due to claustrophobia - Continue with PT DVT prophylaxis: Heparin subcutaneous CODE STATUS: Full code Exam Vital Signs (Last) Date Time Temp Pulse Resp B/P Pulse Ox O2 Delivery O2 Flow Rate FiO2 11/03/16 08:00 36.7 65 23 121/54 99 Room Air 11/03/16 03:05 3.50 11/01/16 23:58 36 Exam General: Morbidly obese, No acute distress, well-developed, well-nourished Head: Normocephalic, atraumatic. External ears without defect. Eyes: Pupils equal, round, and reactive to light and accommodation. Anicteric sclerae, moist conjunctivae. Neck: Normal range of motion, Cardiovascular: Regular rate and rhythm with no murmurs, rubs, or gallops appreciated Pulmonary: Clear to auscultation bilaterally with no crackles, wheezes, or rhonchi. Exaggerated respiratory effort with no use of accessory muscles. Abdomen: Bowel tones present. Soft, morbidly obese, nontender, nondistended. Extremities: No clubbing, cyanosis, lower extremities are extremely swollen, difficult to tell whether this is due to edema or adipose tissue. Right leg is mildly erythematous and is painful to moderate palpation Skin: Normal temperature, turgor, and texture; no rash, ulcers, or subcutaneous nodules appreciated. Neurological: Cranial nerves grossly intact. Reflexes, coordination, and sensory function within normal limits. Normal muscle strength, tone, and bulk. Psychiatric: Normal affect. Alert and oriented to person, place, and time Test 10/30/16 23:50 10/31/16 00:00 10/31/16 04:40 10/31/16 08:04 Pro-B-Type Natriuretic Peptide 76pg/mL (0-121) Hold Pandya Top Tube Received (Received) D-Dimer 1.12mg/L FEU (<0.50) Urine Color Yellow (YELLOW) Urine Appearance Clear (CLEAR,HAZY) Urine pH 5.5 (5.0-8.0) Urine Specific Fidelity 1.020 (1.003-1.035) Urine Protein Negativemg/dL (NEG,TRACE) Urine Glucose (UA) Negativemg/dL (NEGATIVE) Urine Ketones Negativemg/dL (NEGATIVE) Urine Occult Blood Trace (NEGATIVE) Urine Nitrite Negative (NEGATIVE) Urine Bilirubin Negative (NEGATIVE) Urine Urobilinogen Normalmg/dL (NORMAL) Urine Leukocyte Esterase Negative (NEGATIVE) Urine RBC 0-2/hpf (0-2) Urine WBC 0-5/hpf (0-5) Urine Epithelial Cells Moderate/hpf (NONE-MOD) Urine Crystals None seen (NONE SEEN) Urine Bacteria None/hpf (NONE-FEW) Urine Hyaline Casts Occasional/lpf (NONE) Urine Granular Casts None seen (NONE SEEN) Urine Waxy Casts None seen (NONE SEEN) Urine Red Blood Cell Casts None seen (NONE SEEN) Urine White Blood Cell Casts None seen (NONE SEEN) Urine Mucus None seen (None Seen) Urine Trichomonas None seen (NONE SEEN) Urine Yeast None (NONE SEEN) Urinalysis Comment None Urine Culture Reflexed Not indicated Prothrombin Time 11.1sec (8.1-12.5) Prothromb Time International Ratio 1.04ratio Activated Partial Thromboplast Time 28.7sec (22.8-33.0) Magnesium Level 2.1mg/dL (1.6-2.6) Thyroid Stimulating Hormone (TSH) 12.020uIU/mL (0.450-4.500) Free Thyroxine Index 2.6 (1.2-4.9) Thyroxine (T4) 8.5ug/dL (4.5-12.0) Triiodothyronine (T3) Uptake 30% (24-39) Test 10/31/16 18:31 11/01/16 03:03 11/03/16 02:15 Troponin T < 0.010ug/L (0.0-0.011) Neutrophils (%) (Auto) 75.2% (40-74) Lymphocytes (%) (Auto) 16.9% (14-46) Monocytes (%) (Auto) 7.6% (4-12) Eosinophils (%) (Auto) 0% (0-5) Basophils (%) (Auto) 0% (0-3) White Blood Count 6.5th/mm3 (3.8-10.1) Red Blood Count 4.63mil/mm3 (4.40-5.80) Hemoglobin 12.9g/dL (13.8-17.2) Hematocrit 42.2% (41.0-50.0) Mean Corpuscular Volume 91.1fL (81-100) Mean Corpuscular Hemoglobin 27.9pg (27.0-35.0) Mean Corpuscular Hemoglobin Concent 30.6% (32.0-37.0) Red Cell Distribution Width 20.6% (12.3-15.4) Platelet Count 193bil/L (150-400) Sodium Level 138mEq/L (134-144) Potassium Level 4.3mEq/L (3.5-5.2) Chloride Level 97mEq/L (97-108) Carbon Dioxide Level 30mmol/L (18-29) Blood Urea Nitrogen 24mg/dL (6-24) Creatinine 1.04mg/dL (0.76-1.27) Estimat Glomerular Filtration Rate 82mL/min (>59) Glucose Level 125mg/dL (60-99) Calcium Level 8.9mg/dL (8.5-10.1) Total Bilirubin 0.7mg/dL (0.0-1.2) Aspartate Amino Transf (AST/SGOT) 24U/L (0-50) Alanine Aminotransferase (ALT/SGPT) 20U/L (0-44) Alkaline Phosphatase 65U/L (25-150) Total Protein 7.0g/dL (6.4-8.4) Albumin 3.9g/dL (3.4-5.0) Discharge Medications Discharge Medications ([testosterone ]) Unknown Dose TOPICAL every 2 weeks (Reported) Aspirin (Aspirin) 81 Mg Tablet 81 MG PO DAILY (Reported) Atorvastatin (Lipitor) 80 Mg Tablet 80 MG PO HS (Reported) Cholecalciferol (Vitamin D3) (Vitamin D3) 1,000 Unit Tab.chew 1,000 UNIT PO DAILY (Reported) Ferrous Sulfate (Ferrous Sulfate) 325 Mg Tablet 325 MG PO DAILY (Reported) Fexofenadine (Fexofenadine) 180 Mg Tablet 180 MG PO BID (Reported) Fluoxetine (Fluoxetine) 20 Mg Capsule 40 MG PO MORNING (Reported) Fluticasone Propionate (Flonase Allergy Relief) 50 Mcg/Actuation [place].susp 1 SPRAY NS BID (Reported) Fluticasone/Salmeterol (Advair 100-50 Diskus) 60 Puffs/Inh Disk 1 PUFFS IH BID ( Reported) Gabapentin (Gabapentin) 300 Mg Capsule 300 MG PO TID (Reported) Glyburide (Glyburide) 2.5 Mg Tablet 2.5 MG PO BIDAC Prescribed by: DERIK PEREZ MD Levothyroxine (Levothyroxine) 300 Mcg Tablet 300 MCG PO DAILY (Reported) Metformin (Glucophage) 500 Mg Tablet 500 MG PO BIDWM Prescribed by: DERIK PEREZ MD Mometasone/Formoterol (Dulera 100 Mcg/5 Mcg Inhaler) 13 Gm Hfa.aer.ad 2 PUFFS IH BID (Reported) Montelukast (Montelukast) 10 Mg Tablet 10 MG PO HS (Reported) Multivitamin (Once Daily) 1 Each Tablet 1 EACH PO DAILY (Reported) Omeprazole (Omeprazole) 40 Mg Capsule.dr 40 MG PO BIDAC (Reported) Salmeterol Xinafoate (Serevent Diskus) 50 Mcg/Puff Inhaler 2 PUFFS INH BID ( Reported) Spironolactone (Aldactone) 25 Mg Tablet 25 MG PO DAILY Prescribed by: NATHAN PARK DO Torsemide (Demadex) 20 Mg Tablet 40 MG PO DAILY Prescribed by: NATHAN PARK DO As needed Albuterol Neb Soln (Albuterol Neb Soln) 2.5 Mg/3 Ml Vial.neb 2.5 MG INHALATION QID PRN PRN For Shortness of Breath (Reported) Albuterol Sulfate (Ventolin HFA Inhaler) 200 Puff/18 Gm Inhaler 2 PUFF INH q4-6 hours PRN PRN For Shortness of Breath (Reported) Benzonatate (Benzonatate) 100 Mg Capsule 200 MG PO TID PRN PRN For Cough ( Reported) Butalbital/Acetamin/Caff 50-300-40 mg (Butalbital/Acetamin/Caff 50-300-40 mg) 1 Each Tablet 1 TAB PO Q6 PRN PRN Headache Prescribed by: VARSHA LAYTON MD Carisoprodol (Soma) 350 Mg Tablet 350 MG PO BID PRN PRN MUSCLE SPASM (Reported) Epinephrine (Epinephrine) 0.3 Mg/0.3 Ml Auto.injct Unknown Dose IJ prn PRN PRN For Anaphyllaxis (Reported) Ibuprofen (Ibuprofen) 800 Mg Tablet 800 MG PO TID PRN PRN For Pain (Reported) Loperamide (Loperamide) 2 Mg Capsule 2-4 MG PO BID PRN PRN For Diarrhea or Loose Stool (Reported) Lorazepam (Ativan) 1 Mg Tablet 1 MG PO HS PRN PRN For Insomnia Prescribed by: NATHAN PARK DO Ondansetron (Zofran) 4 Mg Tablet 4 MG PO TIDWM PRN PRN For Nausea (Reported) Temazepam (Temazepam) 7.5 Mg Capsule 7.5 MG PO HS PRN PRN For Insomnia Prescribed by: NATHAN PARK DO Tramadol (Tramadol) 50 Mg Tablet 100 MG PO TID PRN PRN For Pain (Reported) oxyCODONE (oxyCODONE) 5 Mg Capsule 5 MG PO Q4H PRN PRN For Pain Prescribed by: VARSHA LAYTON MD Durable Medical Equipment Lancets/Blood Glucose Strips (Fora [id number] Lanct-Str) 30 Gauge Combo..pkg 1 EACH [facility] (DME) Prescribed by: NATHAN PARK DO Walker (Ultra-Light Rollator) 1 Each Each 1 EACH [facility] (DME) Prescribed by: NATHAN J FIELD, DO Additional med instructions We would like you to continue taking your home meds with the following exceptions: Please take spironolactone 20 mg daily, and torsemide 40 mg per day Do not continue to take furosemide as previously prescribed. You have also been prescribed a walker for ambulation Followup Plan Disposition: Home with home health Follow-up plan We would like you to follow-up with her primary care provider for which you have an appointment on November 06. We would also like you to follow-up with your auto slip cover installer, Dr. Kaiser, within the next 2-3 weeks if possible, who will continue to monitor your thyroid and diabetes progression. We would also like you to see a pattern keeper who can give recommendations as far as optimization of inhaled medications, as many of the inhalers that you currently take our redundant and likely unnecessary. This can be best arranged by your primary care provider. Discharge Diet: Low fat, Low Sodium, Heart Healthy, Diabetic Discharge Activity: No restrictions Patient Instructions Your visit here in the hospital today and is likely result of your congestive heart failure combined with multiple medical problems including obesity hypoventilation syndrome. We would like you to continue taking the medications as described above, however in addition to these changes would suggest that you begin a daily regimented diet plan and strict control of your diabetes. It is imperative that you cut out all carbohydrates from your diet this includes bread , pasta, rice, potatoes, and fruit juices. Grade resources for diet improvement include "the diabetes solution" by Armando Donovan as well as DietDoSwapBeats. In addition, it is imperative that you begin using the trilogy machine at home during sleep. Many of your current medical issues can be traced back to your sleep apnea, and initiation of use of the trilogy machine at night consistently will add great benefit. Follow-up Provider: [facility] Follow-up with PCP in: 1 week Provider: OTHER,PHYSICIAN Follow-up in: 3 weeks (Dr. Kaiser) Time spent Greater than 30 minutes was spent in preparation of discharge with greater than 50% of that time dedicated to patient counseling and coordination of care. . Attending Statement The patient was seen and examined together with Dr. Park on 11/03/2016 and I agree with the history, exam and plan as outlined in the note above. . copies to: Melani Aguiar Adam J DO Nov 03, 2016 11:22 Tera Yee MD Nov 03, 2016 15:46
[2016-11-03] MEDS ORDERED: LANC1COM MC (12:23)
[2016-11-03] MEDS ORDERED: LORA-303 PO (12:24)
--- NOTE | 2016-11-03 12:50 | NUR ---
Discharge Pt D/Cd home with Rx for test strips, home health, walker and new meds. Med and MD instructions as well as follow up instructions gone over in detail with pt and his girlfriend/fiancee. No questions at this time. Hard copies of Rx given to pt. Wheelchair to car by DEANA. PIV D/Cd intact
--- NOTE | 2016-11-03 17:03 | NUR ---
Social Work Note: Discharge Data& Assessment: Per MD in multidisciplinary rounds, pt is medically ready to discharge home. Thai Yin is a 46 year old male admitted on 10/31/2016 for R Pneumonia and morbid obesity. Per pt is medically improved and ready to discharge home via POV with nae Roxanne ESTEVEZ PT, RN, OT, RECEIVER DISPATCHER and GROUP SOCIAL WORKER. RECEIVER DISPATCHER notified Cheryl of pt D/C and confirmed resumption of care. RECEIVER DISPATCHER was notified by [employer] they do not contract with pt insurance. RECEIVER DISPATCHER confirmed that [employer] contracts with [employer], RECEIVER DISPATCHER faxed script and clinicals to [facility] and spoke with [facility] insurance representative who confirmed receipt. Pt and pt significant other phone numbers provided for [facility] to contact regarding delivery for FWW. Pt denies any other needs. No other discharge needs or MD orders identified. All updated and agreeable to plan. Plan: Per pt is medically ready to discharge home via POV with glenn ESTEVEZ RN, PT, OT, GROUP SOCIAL WORKER and RECEIVER DISPATCHER and walker delivery through [employer]. Pt denies any other needs. No other discharge needs or MD orders identified. All updated and agreeable to plan. ADARSH Nieto
== END 2016-11-03 13:00 | disposition home health service (06) | DRG 291 ==
LOC: SED 23:04 → PCC 10-31 03:21
PROVIDERS: ADMIT Specialist; ATTEND Internal Medicine
PROC: 4A033R1 Measurement of Arterial Saturation, Peripheral, Percutaneous Approach (ICD-10-PCS; principal; 2016-10-31)
DX: I50.33 Acute on chronic diastolic (congestive) heart failure (principal); J96.21 Acute and chronic respiratory failure with hypoxia; E11.40 Type 2 diabetes mellitus with diabetic neuropathy, unspecified; Z68.45 Body mass index [BMI] 70 or greater, adult; E66.2 Morbid (severe) obesity with alveolar hypoventilation; I89.0 Lymphedema, not elsewhere classified; F32.9 Major depressive disorder, single episode, unspecified; E03.9 Hypothyroidism, unspecified; E78.5 Hyperlipidemia, unspecified; J45.909 Unspecified asthma, uncomplicated; G47.00 Insomnia, unspecified; G43.909 Migraine, unspecified, not intractable, without status migrainosus; G89.29 Other chronic pain; F41.0 Panic disorder [episodic paroxysmal anxiety]; Z79.82 Long term (current) use of aspirin; Z79.51 Long term (current) use of inhaled steroids; Z79.84 Long term (current) use of oral hypoglycemic drugs; Z99.81 Dependence on supplemental oxygen; Z79.891 Long term (current) use of opiate analgesic

== ENCOUNTER 2016-11-12 14:27 | Observation (INO) | payer MEDICAID, OTHER ==
[~2016-11-12] VITALS: Ht 154.9 cm; Wt 168.6 kg
[2016-11-12] VITALS (8 sets, daily range): BP systolic 113–149; BP diastolic 55–127; PULSE 67–128; RESP 18–26; O2SAT 95–98
[~2016-11-12 14:27] MED LIST changes: -FURO-129 PO; +LANC1COM MC; +LORA-303 PO; +SPIR25TA PO; +TORS20TA PO; +WALK1EAC55 MC
--- NOTE | 2016-11-12 14:58 | DRSVH ---
PROCEDURE: X-RAY CHEST ONE VIEW, PORTABLE ([id number]) INDICATIONS: PAIN TECHNIQUE: One view of the chest was acquired. COMPARISON: [facility], CR, XR CHEST 1VW (PORTABLE), 10/30/2016, 23:12. FINDINGS: Surgical changes and devices: None. Lungs and pleura: No pleural effusions or pneumothorax. Mild increased pulmonary vascularity. Mediastinum: Mediastinal contours appear normal. Heart size is normal. Bones and chest wall: No suspicious bony lesions. Overlying soft tissues appear unremarkable. IMPRESSION: Mild increased pulmonary vascularity. Dictated by: Tammy Ridley M.D. on 11/12/2016 at 14:56 Approved by: Tammy Ridley M.D. on 11/12/2016 at 14:57
[2016-11-12 15:06] LABS: BASOPHILS % (AUTO) 0 % (0-3); EOSINOPHILS % (AUTO) 0 % (0-5); MONOCYTES % (AUTO) 6.8 % (4-12); Mean Corpuscular Hemoglobin 27.8 pg (27.0-35.0); NEUTROPHILS % (AUTO) 71.1 % (40-74); Platelet Count 197 bil/L (150-400)
--- NOTE | 2016-11-12 15:07 | ED.REPORT ---
HPI-General Illness Date of Service Nov 12, 2016 ED Provider: Sukhjinder Lantigua MD Patient is a 46 year old male with a history of CT, CHF, diabetes with neuropathy, pulmonary arterial hypertension on 4L of oxygen at home, recently hospitalized for CHF exacerbation, pneumonia and lower extremity cellulitis who presents to the ED via EMS complaining of chest pain onset yesterday. Associated symptoms include sore throat, difficulty swallowing, nausea, non- productive cough, chills and subjective fever. He denies vomiting. The patient reports that the pain is exacerbated with movement, especially bending and twisting. He states that his pain feels similar to when he had his last CT. Prior to arrival the patient was given 12.5 of Phenergan, 324mg of ASA and 2 nitro by EMS. He is not currently on anticoagulants. Nursing Notes Stated Complaint: CHEST PAIN Chief Complaint: Chest Pain Nursing Notes Reviewed: Yes Allergies: Coded Allergies: Honey Bee (Verified Allergy, Severe, Anaphylaxis, 10/24/16) "stop breathing,and quivering" honey (Verified Allergy, Severe, Anaphylaxis, 10/24/16) azithromycin (Verified Allergy, Intermediate, emesis, 10/24/16) haloperidol (Verified Allergy, Intermediate, confusion, 10/24/16) Uncoded Allergies: ZPak (Allergy, Severe, 10/25/16) Diarrhea, hives redwood tree (Allergy, Unknown, Hives, 10/01/16) Scheduled ([testosterone ]) Unknown Dose TOPICAL every 2 weeks Aspirin (Aspirin) 81 Mg Tablet 81 MG PO DAILY Atorvastatin (Lipitor) 80 Mg Tablet 80 MG PO HS Cholecalciferol (Vitamin D3) (Vitamin D3) 1,000 Unit Tab.chew 1,000 UNIT PO DAILY Ferrous Sulfate (Ferrous Sulfate) 325 Mg Tablet 325 MG PO DAILY Fexofenadine (Fexofenadine) 180 Mg Tablet 180 MG PO BID Fluoxetine (Fluoxetine) 20 Mg Capsule 40 MG PO MORNING Fluticasone Propionate (Flonase Allergy Relief) 50 Mcg/Actuation [place].susp 1 SPRAY NS BID Fluticasone/Salmeterol (Advair 100-50 Diskus) 60 Puffs/Inh Disk 1 PUFFS IH BID Gabapentin (Gabapentin) 300 Mg Capsule 300 MG PO TID Glyburide (Glyburide) 2.5 Mg Tablet 2.5 MG PO BIDAC Levothyroxine (Levothyroxine) 300 Mcg Tablet 300 MCG PO DAILY Metformin (Glucophage) 500 Mg Tablet 500 MG PO BIDWM Mometasone/Formoterol (Dulera 100 Mcg/5 Mcg Inhaler) 13 Gm Hfa.aer.ad 2 PUFFS IH BID Montelukast (Montelukast) 10 Mg Tablet 10 MG PO HS Multivitamin (Once Daily) 1 Each Tablet 1 EACH PO DAILY Omeprazole (Omeprazole) 40 Mg Capsule.dr 40 MG PO BIDAC Salmeterol Xinafoate (Serevent Diskus) 50 Mcg/Puff Inhaler 2 PUFFS INH BID Spironolactone (Aldactone) 25 Mg Tablet 25 MG PO DAILY Torsemide (Demadex) 20 Mg Tablet 40 MG PO DAILY Scheduled PRN Albuterol Neb Soln (Albuterol Neb Soln) 2.5 Mg/3 Ml Vial.neb 2.5 MG INHALATION QID PRN PRN For Shortness of Breath Albuterol Sulfate (Ventolin HFA Inhaler) 200 Puff/18 Gm Inhaler 2 PUFF INH q4-6 hours PRN PRN For Shortness of Breath Benzonatate (Benzonatate) 100 Mg Capsule 200 MG PO TID PRN PRN For Cough Butalbital/Acetamin/Caff 50-300-40 mg (Butalbital/Acetamin/Caff 50-300-40 mg) 1 Each Tablet 1 TAB PO Q6 PRN PRN Headache Carisoprodol (Soma) 350 Mg Tablet 350 MG PO BID PRN PRN MUSCLE SPASM Epinephrine (Epinephrine) 0.3 Mg/0.3 Ml Auto.injct Unknown Dose IJ prn PRN PRN For Anaphyllaxis Ibuprofen (Ibuprofen) 800 Mg Tablet 800 MG PO TID PRN PRN For Pain Loperamide (Loperamide) 2 Mg Capsule 2-4 MG PO BID PRN PRN For Diarrhea or Loose Stool Lorazepam (Ativan) 1 Mg Tablet 1 MG PO HS PRN PRN For Insomnia Ondansetron (Zofran) 4 Mg Tablet 4 MG PO TIDWM PRN PRN For Nausea Temazepam (Temazepam) 7.5 Mg Capsule 7.5 MG PO HS PRN PRN For Insomnia Tramadol (Tramadol) 50 Mg Tablet 100 MG PO TID PRN PRN For Pain oxyCODONE (oxyCODONE) 5 Mg Capsule 5 MG PO Q4H PRN PRN For Pain General Time Seen by MD: 15:05 Chief Complaint Chest pain Hx Obtained From: Patient Arrived By: Ambulance Sudden in Onset?: Yes Onset Occurred: Yesterday Symptom Duration: Since onset Location: : Chest Quality: Heaviness Severity: Current: Severe Recent Healthcare: Recent doctor visit, Recent hospitalization Similar Sx Previous: Yes Past Medical History Past Medical History Notes: Admitted 09/2016 for CHF/Leg Edema Echocardiogram September 2016-technically difficult, EF estimated 6065% The pt was born a female but identifies as a male. 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 Reports: Asthma, Congestive heart failure, Diabetes mellitus, Hypertension Reports: Depression, Obesity Past Surgical History Right knee Family History Family hx of DVT Smoking History Former Smoker Social History None reported Other Social History: Good social support Ambulatory Status Independent Review of Systems +difficulty swallowing Full Review of Systems Constitutional: Reports: Chills, Fever Ears / Nose / Throat: Reports: Sore throat Respiratory: Reports: Non-productive cough, Denies: Shortness of breath Cardiovascular: Reports: Chest pain GI: Reports: Nausea, Denies: Vomiting Complete sys rev & neg: except as marked. Physical Exam Vital Signs Vital Signs Date Time Temp Pulse Resp B/P Pulse Ox O2 Delivery O2 Flow Rate FiO2 11/12/16 16:34 78 26 113/56 96 Nasal Cannula 4 11/12/16 16:18 78 26 113/56 96 Nasal Cannula 4 11/12/16 16:00 128 21 149/127 95 Room Air 4 11/12/16 14:33 37 76 22 114/65 98 Nasal Cannula 4 Initial VS: Reviewed General/Constitutional: Awake, Alert Appearance / Presentation: Positive: Obese, morbidly Head / Eyes: Atraumatic, Normocephalic, PERRL, EOMI ENT: Atraumatic, Airway patent Mouth: Positive: Mucous membranes dry (slighlty) Respiratory / Chest: Atraumatic, Breath sounds NL, Breath sounds = bilat, No respiratory distress reproducable left anterior chest wall tenderness Cardiovascular: Heart rate NL, Regular rhythm, Heart sounds NL, No gallop, No murmurs, No rubs Abdomen: Atraumatic, Soft, Non-tender, No distention 2+ pitting bilateral lower extremity edema that extends up to the knee Skin: Warm, Dry Neurologic: Oriented X3, Speech NL Interpretation & Diagnostics Lab Results Interpretation Result Diagram: 11/12/16 1456 11/12/16 1456 Test 11/12/16 14:56 White Blood Count 5.9th/mm3 (3.8-10.1) Red Blood Count 4.60mil/mm3 (4.40-5.80) Hemoglobin 12.8g/dL (13.8-17.2) Hematocrit 41.4% (41.0-50.0) Mean Corpuscular Volume 90.0fL (81-100) Mean Corpuscular Hemoglobin 27.8pg (27.0-35.0) Mean Corpuscular Hemoglobin Concent 30.9% (32.0-37.0) Red Cell Distribution Width 18.8% (12.3-15.4) Platelet Count 197bil/L (150-400) Neutrophils (%) (Auto) 71.1% (40-74) Lymphocytes (%) (Auto) 21.9% (14-46) Monocytes (%) (Auto) 6.8% (4-12) Eosinophils (%) (Auto) 0% (0-5) Basophils (%) (Auto) 0% (0-3) Sodium Level 140mEq/L (134-144) Potassium Level 4.0mEq/L (3.5-5.2) Chloride Level 96mEq/L (97-108) Carbon Dioxide Level 30mmol/L (18-29) Blood Urea Nitrogen 15mg/dL (6-24) Creatinine 1.12mg/dL (0.76-1.27) Estimat Glomerular Filtration Rate 75mL/min (>59) Glucose Level 77mg/dL (60-99) Calcium Level 8.9mg/dL (8.5-10.1) Magnesium Level 2.1mg/dL (1.6-2.6) Total Bilirubin 0.6mg/dL (0.0-1.2) Aspartate Amino Transf (AST/SGOT) 28U/L (0-50) Alanine Aminotransferase (ALT/SGPT) 21U/L (0-44) Alkaline Phosphatase 67U/L (25-150) Total Creatine Kinase 122U/L (21-232) Creatine Kinase MB 2.0ng/mL (0.0-10.4) Creatine Kinase MB % % (0.0-5.0) Troponin T < 0.010ug/L (0.0-0.011) Pro-B-Type Natriuretic Peptide 71.38pg/mL (0-121) Total Protein 7.1g/dL (6.4-8.4) Albumin 3.8g/dL (3.4-5.0) Hold Pandya Top Tube Received (Received) ECG Interpretation ECG Interpretation: very mild ST elevation of less than 1mm in leads 2 and aVF right axis deviation no acute T wave abnormalities when compared to EKG from 10/30/16, no acute changes present Time: 14:36 Interpreted by: ED physician Normal ECG Interpretation: Normal rate (65), Normal sinus rhythm X-Ray Chest Interpretation Chest Xray Interpretation: IMPRESSION: Mild increased pulmonary vascularity. Dictated by: Tammy Ridley M.D. on 11/12/2016 at 14:56 Approved by: Tammy Ridley M.D. on 11/12/2016 at 14:57 View: Portable, 1 view Interpretation / Wet Read by: Interpret - Radiologist Re-Eval/Medical Decision Med Decision/Clinical Course Patient is a 46 year old male with a history of CT, CHF, diabetes with neuropathy, pulmonary arterial hypertension on 4L of oxygen at home, recently hospitalized for CHF exacerbation, pneumonia and lower extremity cellulitis who presents to the ED via EMS complaining of chest pain onset yesterday. Associated symptoms include sore throat, difficulty swallowing, nausea, non- productive cough, chills and subjective fever. He denies vomiting. The patient reports that the pain is exacerbated with movement, especially bending and twisting. He states that his pain feels similar to when he had his last CT. Prior to arrival the patient was given 12.5 of Phenergan, 324mg of ASA and 2 nitro by EMS. He is not currently on anticoagulants. Here in the emergency department the patient is afebrile with stable vital signs and examination as above. Chest X-ray:IMPRESSION: Mild increased pulmonary vascularity. EKG: normal sinus rhythm, [address] elevation of less than 1mm in leads 2, aVF right axis deviation no acute T wave abnormalities when compared to prior EKG from 10/30/16, no acute changes present Labs: CBC unremarkable CMP unremarkable Trop negative Patient's overall presentation is in my assessment on convincing for acute coronary syndrome. The patient has no major recent risk factors for developing a pulmonary embolism and is without tachycardia or pleuritic chest pain. Suspicion for pulmonary embolism is relatively low. That being said, patient reports that his chest pain today is identical to that which he experienced with previous CT. Initial screening troponin and EKG are reassuring but given his risk factors and history I cannot definitively rule out cardiac etiologies of his chest pain today. This was discussed with patient and family and he was admitted for further ACS rule out and risk stratification. Patient was discussed with the admitting hospitalist and accepted for further management. He was transferred in stable condition. Time of Eval: 15:49 Re-Evaluation/Progress Note: Discussed plan for admit. Patient understands and agrees to plan. All questions were addressed. Consultation : Referral / Consult Name: Marlo Martines Consulted With: Hospitalist Call Returned at: 16:42 News Correspondent: Agrees with eval, Agrees with plan, Accepts admit Counseled Regarding: Diagnosis, Lab results, Need for admission Discharge & Departure Primary Impression: Chest pain Chest pain type: unspecified Qualified Code: R07.9 - Chest pain, unspecified Additional Impressions: History of CT (myocardial infarction) Morbid obesity Obesity type: unspecified obesity type Qualified Code: E66.01 - Morbid ( severe) obesity due to excess calories Pulmonary edema Chronicity: acute Qualified Code: J81.0 - Acute pulmonary edema Disposition: ADMITTED TO HOSPITAL Discharge Condition All VS Reviewed: Yes Condition: Stable Referrals: [facility] Residency [facility] (PCP) Scribe Attestation Portions of this note were transcribed by Monique Horner. I, Dr. Lantigua personally performed the history, physical exam and medical decision-making; I reviewed and confirmed the accuracy of the information in the transcribed note. Signed by: Errol Salcido, 11/12/16 copies to: [facility] Sukhjinder Lantigua MD Nov 12, 2016 15:07 Marely Horner Nov 12, 2016 15:15
[2016-11-12 15:26] LABS: TROPONIN T < 0.010 ug/L (0.0-0.011)
[2016-11-12 15:37] LABS: Magnesium 2.1 mg/dL (1.6-2.6)
[2016-11-12] MEDS ORDERED: Alum-Mag Hydrox-Simeth 30 mL Suspension PO PRN ×2 (15:45→17:05)
[2016-11-12] MEDS ORDERED: Ondansetron 2 mg/mL 2 mL Inj IVPUSH PRN ×2 (15:45→17:05)
[2016-11-12] MEDS ORDERED: Polyethylene Glycol (PEG) 17 Gm Powder PO PRN (17:05)
[2016-11-12 17:49] LABS: Creatine Kinase 122 U/L (21-232)
--- NOTE | 2016-11-12 18:11 | NUR ---
Admit note Received patient via laurarjanell accompanied by Dorina EDGE, A/O x 3, able to transfer from bed to the couch using a FWW. On Oxygen @ 4L via NC. Patient on O2 therapy at home. Oriented to room and unit. Admit nurse will finished notes later. Thank you. Patient made comfortable, will continue to monitor at this time.
--- NOTE | 2016-11-12 19:33 | PCM.HPMED ---
Subjective Date of Service Nov 12, 2016 Primary Provider: Admitting Physician: Marlo Martines Primary Care Physician: Lee,[facility] Residency Attending Physician: Marlo Martines Chief Complaint: Patient is a 46-year-old transgender male with a medical history significant for morbid obesity, hypertension, dyslipidemia, diabetes type II, diastolic heart failure, pickwickian syndrome, chronic opioid dependence and depression anxiety presents to the emergency room with cardiac symptoms. History of Present Illness: Per patient, he reported significant chest pain 10/10 since last night described as constant, midsternal, that radiates to the left arm. Patient however denies any associated symptoms of diaphoretic, palpitation, or shortness of breath. Patient states he took one dose of oxycodone, fell asleep , woke up with similar symptoms and thus activated EMS. He received aspirin in addition to Phenergan and nitroglycerin in the transport to [facility]. On arrival patient remains to be with significant chest pain. Currently he states significant headaches. Otherwise he denies any lightheadedness dizziness fever chills or night sweats. Patient does note some difficulty swallowing sore throat with associated dry cough, otherwise no hematemesis. No abdominal pain, nausea or vomiting. No melena in the stool. No history of GI bleed. In the ED, patient pulse 70, respiratory rate of 26, blood pressure 113/56, pulse oximetry 96% on 4 L nasal cannula. Chest x-ray showed possible mild increase in vascularity, otherwise unremarkable. EKG unremarkable. Lab works a fairly benign. CO2 30 chloride 96. Troponin CK and CK-MB all negative. Due to his risk factors however patient admitted on observation for chest pain. Review of Systems: A comprehensive review of systems was conducted with the patient and found to be negative except as above in the History of Present Illness. Allergies Coded Allergies: Honey Bee (Verified Allergy, Severe, Anaphylaxis, 11/12/16) "stop breathing,and quivering" blue dye (Verified Allergy, Severe, Anaphylaxis, 11/12/16) honey (Verified Allergy, Severe, Anaphylaxis, 11/12/16) azithromycin (Verified Allergy, Intermediate, emesis, 11/12/16) haloperidol (Verified Allergy, Intermediate, confusion, 11/12/16) Uncoded Allergies: ZPak (Allergy, Severe, 10/25/16) Diarrhea, hives redwood tree (Allergy, Unknown, Hives, 10/01/16) Home Medications A subtle initial medication list will need to verify ([testosterone ]) Unknown Dose TOPICAL every 2 weeks Aspirin (Aspirin) 81 Mg Tablet 81 MG PO DAILY Atorvastatin (Lipitor) 80 Mg Tablet 80 MG PO HS Cholecalciferol (Vitamin D3) (Vitamin D3) 1,000 Unit Tab.chew 1,000 UNIT PO DAILY Ferrous Sulfate (Ferrous Sulfate) 325 Mg Tablet 325 MG PO DAILY Fexofenadine (Fexofenadine) 180 Mg Tablet 180 MG PO BID Fluoxetine (Fluoxetine) 20 Mg Capsule 40 MG PO MORNING Fluticasone Propionate (Flonase Allergy Relief) 50 Mcg/Actuation [place].susp 1 SPRAY NS BID Fluticasone/Salmeterol (Advair 100-50 Diskus) 60 Puffs/Inh Disk 1 PUFFS IH BID Gabapentin (Gabapentin) 300 Mg Capsule 300 MG PO TID Glyburide (Glyburide) 2.5 Mg Tablet 2.5 MG PO BIDAC Levothyroxine (Levothyroxine) 300 Mcg Tablet 300 MCG PO DAILY Metformin (Glucophage) 500 Mg Tablet 500 MG PO BIDWM Mometasone/Formoterol (Dulera 100 Mcg/5 Mcg Inhaler) 13 Gm Hfa.aer.ad 2 PUFFS IH BID Montelukast (Montelukast) 10 Mg Tablet 10 MG PO HS Multivitamin (Once Daily) 1 Each Tablet 1 EACH PO DAILY Omeprazole (Omeprazole) 40 Mg Capsule.dr 40 MG PO BIDAC Salmeterol Xinafoate (Serevent Diskus) 50 Mcg/Puff Inhaler 2 PUFFS INH BID Spironolactone (Aldactone) 25 Mg Tablet 25 MG PO DAILY Torsemide (Demadex) 20 Mg Tablet 40 MG PO DAILY Scheduled PRN Albuterol Neb Soln (Albuterol Neb Soln) 2.5 Mg/3 Ml Vial.neb 2.5 MG INHALATION QID PRN PRN For Shortness of Breath Albuterol Sulfate (Ventolin HFA Inhaler) 200 Puff/18 Gm Inhaler 2 PUFF INH q4-6 hours PRN PRN For Shortness of Breath Benzonatate (Benzonatate) 100 Mg Capsule 200 MG PO TID PRN PRN For Cough Butalbital/Acetamin/Caff 50-300-40 mg (Butalbital/Acetamin/Caff 50-300-40 mg) 1 Each Tablet 1 TAB PO Q6 PRN PRN Headache Carisoprodol (Soma) 350 Mg Tablet 350 MG PO BID PRN PRN MUSCLE SPASM Epinephrine (Epinephrine) 0.3 Mg/0.3 Ml Auto.injct Unknown Dose IJ prn PRN PRN For Anaphyllaxis Ibuprofen (Ibuprofen) 800 Mg Tablet 800 MG PO TID PRN PRN For Pain Loperamide (Loperamide) 2 Mg Capsule 2-4 MG PO BID PRN PRN For Diarrhea or Loose Stool Lorazepam (Ativan) 1 Mg Tablet 1 MG PO HS PRN PRN For Insomnia Ondansetron (Zofran) 4 Mg Tablet 4 MG PO TIDWM PRN PRN For Nausea Temazepam (Temazepam) 7.5 Mg Capsule 7.5 MG PO HS PRN PRN For Insomnia Tramadol (Tramadol) 50 Mg Tablet 100 MG PO TID PRN PRN For Pain oxyCODONE (oxyCODONE) 5 Mg Capsule 5 MG PO Q4H PRN PRN For Pain Exam Vital Signs & I/O Vital Sign- Last 8 Hours Date Time Temp Pulse Resp B/P Pulse Ox O2 Delivery O2 Flow Rate FiO2 11/13/16 14:40 74 95 Nasal Cannula 2.40 11/13/16 13:10 36.5 66 18 121/64 96 Nasal Cannula 3.00 11/13/16 11:12 68 Intake and Output- Last 8 Hour 11/13/16 Cumulative From/Thru 06:59 11/12/16 14:33 - 11/13/16 04:34 Intake Total 1036 ml 2273 ml Output Total 400 ml 800 ml Balance 636 ml 1473 ml Intake Oral 1036 ml 1273 ml IV Total 1000 ml Output Urine Total 400 ml 800 ml # Voids 2 Lab & Micro Results Laboratory Tests Test 11/12/16 18:17 11/13/16 01:55 Troponin T < 0.010ug/L (0.0-0.011) 0.010ug/L (0.0-0.011) Thyroid Stimulating Hormone (TSH) 9.720uIU/mL (0.450-4.500) Free Thyroxine 1.54ng/dL (0.82-1.77) White Blood Count 6.0th/mm3 (3.8-10.1) Red Blood Count 4.68mil/mm3 (4.40-5.80) Hemoglobin 12.9g/dL (13.8-17.2) Hematocrit 42.2% (41.0-50.0) Mean Corpuscular Volume 90.2fL (81-100) Mean Corpuscular Hemoglobin 27.6pg (27.0-35.0) Mean Corpuscular Hemoglobin Concent 30.6% (32.0-37.0) Red Cell Distribution Width 18.9% (12.3-15.4) Platelet Count 193bil/L (150-400) Prothrombin Time 10.4sec (8.1-12.5) Prothromb Time International Ratio 0.97ratio Activated Partial Thromboplast Time 27.3sec (22.8-33.0) Sodium Level 138mEq/L (134-144) Potassium Level 4.1mEq/L (3.5-5.2) Chloride Level 94mEq/L (97-108) Carbon Dioxide Level 30mmol/L (18-29) Blood Urea Nitrogen 17mg/dL (6-24) Creatinine 1.10mg/dL (0.76-1.27) Estimat Glomerular Filtration Rate 77mL/min (>59) Glucose Level 103mg/dL (60-99) Calcium Level 8.9mg/dL (8.5-10.1) Result Diagram: 11/13/1615411/13/16154 Review of Systems: Constitutional: Negative, except as otherwise mentioned in the history above. Ophthalmologic: Negative, except as otherwise mentioned in the history above. Cardiovascular: Negative, except as otherwise mentioned in the history above. Respiratory: Negative, except as otherwise mentioned in the history above. Gastrointestinal: Negative, except as otherwise mentioned in the history above. Genitourinary: Negative, except as otherwise mentioned in the history above. Musculoskeletal: Negative, except as otherwise mentioned in the history above. Neurological: Negative, except as otherwise mentioned in the history above. Psychiatric: Negative, except as otherwise mentioned in the history above. Hematologic/Lymphatic: Negative, except as otherwise mentioned in the history above. Allergic/Immunologic: Negative, except as otherwise mentioned in the history above. PMH Hypertension Diabetes type II Chronic respiratory failure on home O2 2-3 L CHF Asthma Lymphedema History sinusitis Hypothyroidism Anxiety History of suicide attempt Hypothyroidism Transgender Pickwickian syndrome Dyslipidemia History of migraines Chronic pain syndrome Surgical History Right knee surgery Family History Family history of DVT Social History Hx Alcohol Use: No Hx Substance Use: No Hx Tobacco Use: Yes Smoking Status: Former Smoker Exam Vital Signs Vital Sign - Last Date Time Temp Pulse Resp B/P Pulse Ox O2 Delivery O2 Flow Rate FiO2 11/12/16 18:07 68 11/12/16 17:52 36.9 20 116/55 98 Nasal Cannula 4.00 Exam General: No acute distress, appropriately interactive, morbidly obese, difficult to conduct entire exam due to body habitus HEENT: Normocephalic, atraumatic. PERRLA, EOMI, Anicteric sclerae, moist conjunctivae. Neck: Cannot appreciate any JVD. Cardiovascular: Difficult to auscultate, regular rate and rhythm, cannot appreciate any heart murmurs Pulmonary: b/l air sound with no crackles, wheezes, or rhonchi. Abdomen: +Bowel sound, Soft, nontender, nondistended. Obese Musculoskeletal: Chest pain reproducible with palpation Extremities: No clubbing or cyanosis, significant lower leg lymphedema, no signs of cellulitis Skin: Normal temperature, turgor, and texture; no rash. No visualized skin ulcer. Neurological: CN II-VII grossly intact, moving equally on all 4 extremities Psychiatric: Normal mood and affect. AOx3 Lab and Diagnostics Result Diagram: 11/13/1615411/13/16154 Assessment & Plan Patient is a 46-year-old biologically female with a medical history significant for hypertension, dyslipidemia, diabetes type II, morbidly obese with chronic respiratory failure and CHF presented with chest pain, admitted on observation for AR rule out Chest pain -likely musculoskeletal -TIAGO score 1 -neg trops x2, ck/ck-mb neg, trending -limited echo for wall motion abnormalities -high pretest probablitiy of CAD, NM pharmacological stress testing in the am. -ordered ibuprofen chronic diastolic congestive heart failure, present on admission -Continue spironolactone 25 mg PO daily -Continue torsemide 40 mg daily Chronic respiratory failure -CO2 retainer on old ABG, has home Trilogy, 4 L, pickwickian syndrome -Consider BiPAP if unable to maintain O2 saturation at night. Asthma, present on admission. Stable. -DuoNeb when necessary -cont home fexofenadine,montelukast, and Flonase. Hyperlipidemia, present on admission. Stable. - Continue aspirin 81 mg and atorvastatin 80 mg daily at bedtime. Diabetes mellitus type II, non-insulin using, with neuropathy, present on admission. Stable. -Recent A1c 8.1 -Holding metformin and glyburide, continue gabapentin -Lispro high sliding scale Anxiety with panic attacks -Continue fluoxetine 40 mg daily. Hypothyroidism, chronic, present on admission -Repeat T4 TSH -levothyroxine 300 mg daily Chronic pain with opiate habituation, present on admission. Stable. -Oxycodone 5 mg Soma 350 mg twice a day -Ibuprofen GERD, present on admission. Stable. - Continue Protonix 40 mg twice a day before meals. Insomnia, present on admission. Stable. - Continue temazepam 7.5 mg at bedtime. Transgender -holding testosterone DVT prophylaxis heparin CODE STATUS full code GI Prophylaxis: Proton Pump Inhibitor VTE Prophylaxis: Sub-Q Enoxaparin Resuscitation Status: CPR: Attempt Resuscitation Attending Statement The patient was seen and examined together with Dr. Uribe on 11/12/16 and I agree with the history, exam and plan as outlined in the note above. Juan Uribe DO Nov 12, 2016 19:33 Marlo Martines Nov 13, 2016 17:29
[2016-11-12] MEDS: HYDROmorphone 0.5 mg/0.5 mL iSecure Syringe IVPUSH PRN (21:24)
[2016-11-12] MEDS ORDERED: Albuterol-Ipratropium 3 mL Inhalation Solution NEB PRN (22:55)
[2016-11-12] MEDS ORDERED: Glucose 40% Oral Gel 15 Gm Tube PO PRN (22:55)
[2016-11-12] MEDS ORDERED: Dextrose 10% 250 ML IV PRN (23:15)
[2016-11-12] MEDS: LORazepam 1 mg Tablet PO PRN (23:22)
[2016-11-13] VITALS (8 sets, daily range): BP systolic 121–139; BP diastolic 54–85; PULSE 66–83; RESP 17–20; O2SAT 92–98
[2016-11-13 02:14] LABS: Mean Corpuscular Hemoglobin 27.6 pg (27.0-35.0); Mean Corpuscular Volume 90.2 fL (81-100)
[2016-11-13 02:50] LABS: INR 0.97 ratio
--- NOTE | 2016-11-13 06:10 | NUR ---
PAIN Pt complained of generalized pain 10/10 during the night. Administered pain medication, ineffective. Administered HS medication. Pt rested intermittently through the night. Denies cardiac chest pain, SOB at rest and n/v. Call light within reach. Non slip socks for safety. Cooperative with care.
--- NOTE | 2016-11-13 06:13 | NUR ---
COUGH Pt complained of persistent cough. MD notified. New order: Bruce Reece, effective. Coughing decreased. Care continues. Will continue to monitor. Call light within reach.
[2016-11-13] MEDS: Insulin LISPRO 300 Unit/3 mL Inj SUBQ SCH ×4 (08:00→22:00)
[2016-11-13] MEDS: Pantoprazole 40 mg ER24 Tablet PO SCH ×2 (08:20→16:38)
[2016-11-13] MEDS: Fluticasone 0.05% 15 Spray/2 Gm 16 Gm Nasal Spray NASAL SCH ×3 (08:20→23:21)
--- NOTE | 2016-11-13 08:30 | NUR ---
Off unit Patient left unit for stress test. Pt displayed no s/s of distress at time of transfer. Pt was difficult to keep awake during conversation and would fall asleep mid-sentence prior to transfer. Addendum: 11/13/16 at 1234 by FANNY CHAUDHARY RN back on unit at 1230
--- NOTE | 2016-11-13 10:00 | NUR ---
Ativan Gave 1 mg Ativan IVP for anxiety to patient down in nuc meds before stress test per MD order
[2016-11-13] MEDS: Nystatin 100,000 Unit/Gm 15 Gm Powder TOPICAL SCH ×2 (12:40→23:23)
[2016-11-13] MEDS: HYDROmorphone 0.5 mg/0.5 mL iSecure Syringe IVPUSH PRN (12:54)
--- NOTE | 2016-11-13 14:48 | PCM.PNMED ---
Subjective Date of Service Nov 13, 2016 Subjective Reports continued chest pain but intensity much improved. Denies any other new issues/complaints. Exam Vital Signs Vital Sign - Last Date Time Temp Pulse Resp B/P Pulse Ox O2 Delivery O2 Flow Rate FiO2 11/13/16 14:40 74 95 Nasal Cannula 2.40 11/13/16 13:10 36.5 18 121/64 Intake and Output 11/12/16 11/12/16 11/13/16 Cumulative From/Thru 15:00 23:00 07:00 11/12/16 14:33 - 11/13/16 04:34 Intake Total 1237 ml 1036 ml 2273 ml Output Total 400 ml 400 ml 800 ml Balance 837 ml 636 ml 1473 ml Intake Oral 237 ml 1036 ml 1273 ml IV Total 1000 ml 1000 ml Output Urine Total 400 ml 400 ml 800 ml # Voids 2 2 Exam General: Obese man in NAD HEENT: Normocephalic, atraumatic. Anicteric sclerae, moist conjunctivae, and no lid lag. Oropharynx free of erythema and cobble stoning with moist mucosa. Neck: Supple with full range of motion. Cardiovascular: Distant heart sounds. Regular rate and rhythm Pulmonary: Clear to auscultation bilaterally with faint wheezes. Increased respiratory effort. Abdomen: Bowel tones present. Obese, soft, nontender, nondistended. Extremities: Peripheral pulses including posterior tibialis 2 out of 4 equal bilaterally. Skin: Bilateral lower extremity lymphedema with overlying sunburn. There are large bullae present on the anterior and posterior legs left greater than right. Thickening of the skin consistent with chronic venous stasis. Neurological: Cranial nerves grossly intact. Normal muscle strength, tone, and bulk. Psychiatric: Normal mood and affect. Alert and oriented to person, place, and time. Lab and Diagnostics Result Diagram: 11/13/16 0155 11/13/16 0155 Assessment & Plan 45-year-old man with past medical history significant for asthma, edema, hypothyroidism, diabetes mellitus non-insulin using, and morbid obesity who presents with acute chest pain # Acute chest pain. present on admission -Acute SC ruled out with negative Trop x 3 -Had stress test today but will need resting part tomorrow per cardiology report -Followup pending limited Echo -Continue with current meds # Chronic diastolic congestive heart failure, present on admission -Continue spironolactone 25 mg PO daily -Continue torsemide 40 mg daily # Chronic respiratory failure -CO2 retainer on old ABG, has home Trilogy, 4 L, pickwickian syndrome -Consider BiPAP if unable to maintain O2 saturation at night. # Asthma, present on admission. Stable. -DuoNeb when necessary -cont home fexofenadine,montelukast, and Flonase. # Hyperlipidemia, present on admission. Stable. - Continue aspirin 81 mg and atorvastatin 80 mg daily at bedtime. # Diabetes mellitus type II, non-insulin using, with neuropathy, present on admission. Stable. -Recent A1c 8.1 -Holding metformin and glyburide, continue gabapentin -Lispro high sliding scale # Anxiety with panic attacks -Continue fluoxetine 40 mg daily. # Hypothyroidism, chronic, present on admission -Repeat T4 TSH -levothyroxine 300 mg daily # Chronic pain with opiate habituation, present on admission. Stable. -Oxycodone 5 mg Soma 350 mg twice a day -Ibuprofen # GERD, present on admission. Stable. - Continue Protonix 40 mg twice a day before meals. # Insomnia, present on admission. Stable. - Continue temazepam 7.5 mg at bedtime. # Transgender -holding testosterone Dispo: Likely home tomorrow pending resting part of the stress test result. GI Prophylaxis: Proton Pump Inhibitor VTE Prophylaxis: Sub-Q Enoxaparin Resuscitation Status: CPR: Attempt Resuscitation Marlo Martines Nov 13, 2016 14:48
--- NOTE | 2016-11-13 16:17 | DRSVH ---
[facility] [address] [place] [address] Echocardiogram Report Name: LANDY ACOSTA FStudy Date: 11/13/2016 Height: 61 in Hospital Exam Location: [facility] Weight: 371 lb Gender: Female BSA: 2.5 m2 : 1970 Age: 46 yrs BP: 139/85 mmHg Reason For Study: chest pain, WMAs? Ordering Physician: Performed By: Berlin Draper Referring Physician: DELVIS VEGA Interpretation Summary A contrast injection of Definity was performed to improve assessment of LV function. The ejection fraction is estimated to be 65-70%. There are no focal wall motion abnormalities. Procedure: A two-dimensional transthoracic echocardiogram with color flow and Doppler was performed in limited views only. A contrast injection of Definity was performed to improve assessment of LV function. Comparison is made with the echocardiogram of 10/25/16. The patient was in normal sinus rhythm during the exam. Left Ventricle: The left ventricle is grossly normal size. Left ventricular wall thickness is mildly increased. The ejection fraction is estimated to be 65-70%. There are no focal wall motion abnormalities. Tricuspid Valve: Right ventricular systolic pressure is estimated to be 41 mmHg plus the clinically estimated CVP which cannot be estimated on this exam. Great Vessels: IVC is not well visualized. Grossly, it appears of normal size and collapses less than 50% with inspiration. Pericardium/ Pleura There is a trivial pericardial effusion noted. MMode/2D Measurements & Calculations IVC diam: 2.0 cm Doppler Measurements & Calculations TR max deni: 321.5 cm/sec TR max P.4 mmHg Electronically signed by: Brent Woodard on Reading Physician:11/13/2016 04:17 PM
--- NOTE | 2016-11-13 16:43 | NUR ---
Social Work-initial assessment: Data:See initial assessment. Pt is a 46 y/o male who was admitted on 11/12/16 for chest pain per H&P. Pt's insurance is [employer]/disabled and PCP is [facility]. EMR reviewed. Pt is readmission discharging home with Resume HH. ALICE met with pt at bedside, SW role explained. Pt resides at home with his fiance in [place] in a single level home. Pt has a 4ww at baseline and does drive. Pt has [facility] O2( 4L at baseline) [facility]. Pt is currently open with [facility] for RN,SINGH, and WAX BLENDER, SW requested Resume HH orders from MD, no orders have been obtained yet. Pt has no SNF history. Pt has no rat exterminator care insurance or VA benefits. SW discussed DPOA/ advanced directive, pt has not completed this, SW provided pt with paperwork. SW also provided pt with discharge planning checklist and encouraged pt to call with any questions. Pt states that he never obtained Fww after last admission. SW to await MD order for Fww and get this set up through [employer]. Pt confirms his SO will provide transport home. No concerns noted from MD incubator operator regarding pt's capacity for self care. SW will continue to follow. Assessment:Pt who would benefit from resume HH. Plan:Pt to discharge home when medically stable via POV. SW awaiting resume orders for HH and order for Fww from MD. SW will continue to follow. ADARSH Cantor Addendum: 11/13/16 at 1702 by PADMINI AUSTIN Amended: Links added.
--- NOTE | 2016-11-13 16:59 | NUR ---
oxygenation Pt was on 4L NC with Sp02. Decreased to 3L as pt uses 2-3 at home. Sp02 maintained 95-97% Addendum: 11/13/16 at 1701 by FANNY CHAUDHARY RN Decreased patient to 2.5L and Sp02 maintained at 95%. Pt continues to have MONZON
[2016-11-13] MEDS: LORazepam 1 mg Tablet PO PRN (23:23)
[2016-11-14 01:11] VITALS: BP 179/71; PULSE 82; RESP 22; O2SAT 91
[2016-11-14 04:38] VITALS: BP 154/78; PULSE 69; RESP 24; O2SAT 95
--- NOTE | 2016-11-14 05:27 | NUR ---
Behavior Pt refused all care for the first part of NOC shift. Pt weepy stating, "my life is terrible. I should have when my did." Pt denies any suicidal ideation or plans. Pt complained of pain at IV site. IV assessed, no redness or swelling. Slow IV flush. Pt removed own IV, intact. Pt stated, " it was hurting and I wanted it out." Unable to establish IV access. water truck driver aware. Left message with IV therapy for a new IV in the am. Pt rested with eyes closed for rest of the night with no further complaints of pain or discomfort. Denies n/v. Using call light. Frequent rounding in place.
--- NOTE | 2016-11-14 07:05 | NUR ---
Chewing Tobacco Pt found with a disposable cup filled with what looked like spit out chewing tobacco. Pt denied having tobacco. Pt then stated, "You seem to be the only one with a problem with me chewing." Pt refused to give RN the tobacco. RN educated pt on hospitals "no tobacco" policy and the importance of not having nicotine before a stress test. Pt verbalized understanding but continued to deny having tobacco. Will continue to educate and monitor.
[2016-11-14] MEDS: Insulin LISPRO 300 Unit/3 mL Inj SUBQ SCH ×2 (08:00→12:00)
--- NOTE | 2016-11-14 08:00 | NUR ---
missing/found cell phone Pt left for resting stress test at 0730. Pt returned at 0755 and was unable to locate cellphone, which pt stated had been on the room tray. Pt began to yell at staff and stated that someone must have stolen it. DIFFUSION FURNACE OPERATOR, funeral home associate and security and compliance project manager all searched for phone and were unable to locate. Cellphone was called numerous times to no avail. This RN was caring for another patient at that time. Pt stated that he wanted to discharge and file a report for the missing Phone. Pt removed his tele box and continued to accuse staff of stealing his cell phone. This RN then went an looked through the room again. Cell phone was found in lowered bed rail. Pt began to calm down and allowed staff to place tele back on.
[2016-11-14] MEDS: Fluticasone 0.05% 15 Spray/2 Gm 16 Gm Nasal Spray NASAL SCH (08:30)
[2016-11-14 10:26] VITALS: PULSE 75
[2016-11-14] MEDS: Pantoprazole 40 mg ER24 Tablet PO SCH (10:49)
[2016-11-14] MEDS: Nystatin 100,000 Unit/Gm 15 Gm Powder TOPICAL SCH (10:50)
--- NOTE | 2016-11-14 12:44 | DRSVH ---
PROCEDURE: 2 DAY STRESS TEST Rest and pharmacological stress myocardial perfusion SPECT with gated imaging and ejection fraction RADIOPHARMACEUTICAL: 32.3 mCi Tc-99m tetrafosmin IV at rest and 33.8 mCi Tc-99m tetrafosmin IV at pea k effect of pharmacological stress. Nge-run-blbmdreh was performed. INDICATIONS: 46 year-old male with chest pain. The patient has diabetes, dyslipidemia and smoking as risk factors for coronary disease. He has a history of congestive heart failure. TECHNIQUE: Radiopharmaceutical was injected at peak stress test, and also at rest. SPECT images wer e obtained. SPECT myocardial perfusion images were displayed in short axis, horizontal long axis, an d vertical long axis views. Gated images were reviewed using activ8 Intelligence software. COMPARISON: [facility], CT, CT ANGIO CHEST PE, 10/24/2016, 20:01. [facility] , CR, XR CHEST 1VW (PORTABLE), 11/12/2016, 14:41. [facility], ECH, ECHO LTD WITH CONTRAST , 11/13/2016, 13:51. CARDIAC STRESS: A pharmacologic stress test was performed under the supervision of an attending staff, using an infus ion of Lexiscan. Hemodynamic data: There is normal blood pressure and heart rate response to pharmacologic stress. Symptoms: The patient experienced severe anginal chest pain (10/10). Aminophylline: 100 mg IV EKG: No diagnostic changes of ischemia; no ectopy. FINDINGS: Raw data: There is good myocardial uptake of radiotracer. No significant motion artifacts. Left ventricle function: Gated images demonstrate normal left ventricular wall thickening. No segme ntal wall motion abnormalities. No transient ischemic dilation visually. Left ventricle resting end diastolic volume is normal. Left ventricle stress ejection fraction is 72%; normal range is above 4 5%. Myocardial perfusion: There is mild patchy infiltrate in the lateral apex on both resting and stress images, most likely caused by attenuation artifact. There is otherwise normal distribution of activi ty in the right and left ventricular myocardium. IMPRESSION: 1. Probably normal myocardial perfusion images. Suspect attenuation artifact in the lateral apex. 2. Normal left ventricular volume and systolic function. 3. The patient experienced chest pain severe chest pain (10/10) during Lexiscan infusion. No diagnost ic EKG changes for ischemia. Dictated by: Zachary Nava M.D. on 11/14/2016 at 12:27 Approved by: Zachary Nava M.D. on 11/14/2016 at 12:42
[2016-11-14 13:57] VITALS: BP 138/68; PULSE 76; RESP 22; O2SAT 92
--- NOTE | 2016-11-14 14:08 | PCM.DC.MED ---
Discharge Summary Date of Service Nov 14, 2016 Dates of Hospitalization Date of Hospital Admission Nov 12, 2016 at 16:49 Date of Discharge: Nov 14, 2016 Providers: Admitting Physician: Marlo Martines [facility] Attending Physician: Juarez Hsu DO Diagnosis at Time of Discharge Diagnosis at Time of Discharge # Acute chest pain. NO evidence of acute coronary syndrome. # Chronic diastolic congestive heart failure, present on admission # Chronic respiratory failure # Asthma, present on admission. Stable. # Hyperlipidemia, present on admission. Stable. # Diabetes mellitus type II, non-insulin using, with neuropathy, present on admission. Stable. # Anxiety with panic attacks # Hypothyroidism, chronic, present on admission # Chronic pain with opiate habituation, present on admission. Stable. # GERD, present on admission. Stable. # Insomnia, present on admission. Stable. # Transgender Brief History As per admission HPI by admitting physician, "Per patient, he reported significant chest pain 10/10 since last night described as constant, midsternal , that radiates to the left arm. Patient however denies any associated symptoms of diaphoretic, palpitation, or shortness of breath. Patient states he took one dose of oxycodone, fell asleep, woke up with similar symptoms and thus activated EMS. He received aspirin in addition to Phenergan and nitroglycerin in the transport to [facility]. On arrival patient remains to be with significant chest pain. Currently he states significant headaches. Otherwise he denies any lightheadedness dizziness fever chills or night sweats. Patient does note some difficulty swallowing sore throat with associated dry cough, otherwise no hematemesis. No abdominal pain, nausea or vomiting. No melena in the stool. No history of GI bleed. In the ED, patient pulse 70, respiratory rate of 26, blood pressure 113/56, pulse oximetry 96% on 4 L nasal cannula. Chest x-ray showed possible mild increase in vascularity, otherwise unremarkable. EKG unremarkable. Lab works a fairly benign. CO2 30 chloride 96. Troponin CK and CK-MB all negative. Due to his risk factors however patient admitted on observation for chest pain." Hospital Course # Acute chest pain. present on admission. No evidence of ACS -Acute PA ruled out with negative Trop x 3 - 2-part stress test conducted due to body habitus demonstrated no evidence of reversible ischemia. -Followup pending limited Echo -Continued with current meds, no changes through hospital stay. - Pt is on numerous medications for pain and anxiety, though made available to him during stay, he utilized them with discretion. As such small quanities of each provided, pt had no controlled pain or anxiety medications at time of admission due to inability to fill. It may be that judicious prescribing of at least some of these medications (detailed below under individual problems) would aid in better control of anxiety and chronic pain and diminish hospital readmission,. This will of course proceed at the discretion of primary care physician. # Chronic diastolic congestive heart failure, present on admission -Continued Spironolactone 25 mg PO daily and Torsemide 40 mg daily - Echocardiogram conducted, demonstrating no acute changes from previous study # Chronic respiratory failure - CO2 retainer on old ABG, has home Trilogy, 4 L, pickwickian syndrome # Asthma, present on admission. Stable. -DuoNeb when necessary -continued home fexofenadine,montelukast, and Flonase. # Hyperlipidemia, present on admission. Stable. - Continued aspirin 81 mg and atorvastatin 80 mg daily at bedtime. # Diabetes mellitus type II, non-insulin using, with neuropathy, present on admission. Stable. -Recent A1c 8.1 -Held metformin and glyburide to be started on discharge, continued gabapentin # Anxiety with panic attacks -Continue fluoxetine 40 mg daily. - IN addition pt take intermittent Ativan dfor daytime anxiety/panic and Restoril for insomnia associated with anxiety in evening. Both medications utilized minimally through stay, small quantity of both provided from breakthrough symptoms. # Hypothyroidism, chronic, present on admission -Repeat T4/TSH, demonstrated TSH of 9 and T4 of 1.54. -Continued Levothyroxine 300 mg daily - Pt was evidently asymptomatic, but may consider further dosage titration outpatient, if close compliance with medication confirmed and symptoms develop. # Chronic pain with opiate habituation, present on admission. Stable. -Oxycodone 5 mg for generalized pain in addition to Soma 350 mg twice a day for abdominal type pain. -Ibuprofen in addition. - Pt utilized neither controlled medication even daily, using far less than PRN frequency allowed, which was reassuring from standpoint of possible abuse. # GERD, present on admission. Stable. - Continue Protonix 40 mg twice a day before meals. # Insomnia, present on admission. Stable. - Continue temazepam 7.5 mg at bedtime. As noted above, was continued. # Transgender -Holding testosterone, in the setting of cardiac disease I am reluctant to continue this medication however he may consider FU with specialist provider or at least PCP prior to restart. Exam Vital Signs (Last) Date Time Temp Pulse Resp B/P Pulse Ox O2 Delivery O2 Flow Rate FiO2 11/14/16 13:57 36.4 76 22 138/68 92 Nasal Cannula 3.00 Test 11/12/16 14:56 11/12/16 18:17 11/13/16 01:55 Neutrophils (%) (Auto) 71.1% (40-74) Lymphocytes (%) (Auto) 21.9% (14-46) Monocytes (%) (Auto) 6.8% (4-12) Eosinophils (%) (Auto) 0% (0-5) Basophils (%) (Auto) 0% (0-3) Magnesium Level 2.1mg/dL (1.6-2.6) Total Bilirubin 0.6mg/dL (0.0-1.2) Aspartate Amino Transf (AST/SGOT) 28U/L (0-50) Alanine Aminotransferase (ALT/SGPT) 21U/L (0-44) Alkaline Phosphatase 67U/L (25-150) Total Creatine Kinase 122U/L (21-232) Creatine Kinase MB 2.0ng/mL (0.0-10.4) Creatine Kinase MB % % (0.0-5.0) Pro-B-Type Natriuretic Peptide 71.38pg/mL (0-121) Total Protein 7.1g/dL (6.4-8.4) Albumin 3.8g/dL (3.4-5.0) Hold Pandya Top Tube Received (Received) Thyroid Stimulating Hormone (TSH) 9.720uIU/mL (0.450-4.500) Free Thyroxine 1.54ng/dL (0.82-1.77) White Blood Count 6.0th/mm3 (3.8-10.1) Red Blood Count 4.68mil/mm3 (4.40-5.80) Hemoglobin 12.9g/dL (13.8-17.2) Hematocrit 42.2% (41.0-50.0) Mean Corpuscular Volume 90.2fL (81-100) Mean Corpuscular Hemoglobin 27.6pg (27.0-35.0) Mean Corpuscular Hemoglobin Concent 30.6% (32.0-37.0) Red Cell Distribution Width 18.9% (12.3-15.4) Platelet Count 193bil/L (150-400) Prothrombin Time 10.4sec (8.1-12.5) Prothromb Time International Ratio 0.97ratio Activated Partial Thromboplast Time 27.3sec (22.8-33.0) Sodium Level 138mEq/L (134-144) Potassium Level 4.1mEq/L (3.5-5.2) Chloride Level 94mEq/L (97-108) Carbon Dioxide Level 30mmol/L (18-29) Blood Urea Nitrogen 17mg/dL (6-24) Creatinine 1.10mg/dL (0.76-1.27) Estimat Glomerular Filtration Rate 77mL/min (>59) Glucose Level 103mg/dL (60-99) Calcium Level 8.9mg/dL (8.5-10.1) Troponin T 0.010ug/L (0.0-0.011) General: Alert, Oriented X3, Cooperative, No Acute Distress Mouth: Mucous Membr Moist/[place] Chest & Lungs: Clear to auscultation & percussion, No adventitious breath sounds Cardiovascular: Regular Rate/Rhythm Abdomen: Other (Obese but nontender. ) Extremities: Other (Grossly enlarged extremtiies B/L without tenderness on palpation. ) Neurological: Grossly Neurologically Intact Discharge Medications Discharge Medications ([testosterone ]) Unknown Dose TOPICAL every 2 weeks (Reported) Aspirin (Aspirin) 81 Mg Tablet 81 MG PO DAILY (Reported) Atorvastatin (Lipitor) 80 Mg Tablet 80 MG PO HS (Reported) Cholecalciferol (Vitamin D3) (Vitamin D3) 1,000 Unit Tab.chew 1,000 UNIT PO DAILY (Reported) Ferrous Sulfate (Ferrous Sulfate) 325 Mg Tablet 325 MG PO DAILY (Reported) Fexofenadine (Fexofenadine) 180 Mg Tablet 180 MG PO BID (Reported) Fluoxetine (Fluoxetine) 20 Mg Capsule 40 MG PO MORNING (Reported) Fluticasone Propionate (Flonase Allergy Relief) 50 Mcg/Actuation Julian.susp 1 SPRAY NS BID (Reported) Fluticasone/Salmeterol (Advair 100-50 Diskus) 60 Puffs/Inh Disk 1 PUFFS IH BID ( Reported) Gabapentin (Gabapentin) 300 Mg Capsule 300 MG PO TID (Reported) Glyburide (Glyburide) 2.5 Mg Tablet 2.5 MG PO BIDAC Prescribed by: DERIK PEREZ MD Levothyroxine (Levothyroxine) 300 Mcg Tablet 300 MCG PO DAILY (Reported) Metformin (Glucophage) 500 Mg Tablet 500 MG PO BIDWM Prescribed by: DERIK PEREZ MD Mometasone/Formoterol (Dulera 100 Mcg/5 Mcg Inhaler) 13 Gm Hfa.aer.ad 2 PUFFS IH BID (Reported) Montelukast (Montelukast) 10 Mg Tablet 10 MG PO HS (Reported) Multivitamin (Once Daily) 1 Each Tablet 1 EACH PO DAILY (Reported) Omeprazole (Omeprazole) 40 Mg Capsule.dr 40 MG PO BIDAC (Reported) Salmeterol Xinafoate (Serevent Diskus) 50 Mcg/Puff Inhaler 2 PUFFS INH BID ( Reported) Spironolactone (Aldactone) 25 Mg Tablet 25 MG PO DAILY Prescribed by: NATHAN PARK DO Torsemide (Demadex) 20 Mg Tablet 40 MG PO DAILY Prescribed by: NATHAN PARK DO As needed Albuterol Neb Soln (Albuterol Neb Soln) 2.5 Mg/3 Ml Vial.neb 2.5 MG INHALATION QID PRN PRN For Shortness of Breath (Reported) Albuterol Sulfate (Ventolin HFA Inhaler) 200 Puff/18 Gm Inhaler 2 PUFF INH q4-6 hours PRN PRN For Shortness of Breath (Reported) Benzonatate (Benzonatate) 100 Mg Capsule 200 MG PO TID PRN PRN For Cough ( Reported) Butalbital/Acetamin/Caff 50-300-40 mg (Butalbital/Acetamin/Caff 50-300-40 mg) 1 Each Tablet 1 TAB PO Q6 PRN PRN Headache Prescribed by: VARSHA LAYTON MD Carisoprodol (Soma) 350 Mg Tablet 350 MG PO BID PRN PRN MUSCLE SPASM (Reported) Epinephrine (Epinephrine) 0.3 Mg/0.3 Ml Auto.injct Unknown Dose IJ prn PRN PRN For Anaphyllaxis (Reported) Ibuprofen (Ibuprofen) 800 Mg Tablet 800 MG PO TID PRN PRN For Pain (Reported) Loperamide (Loperamide) 2 Mg Capsule 2-4 MG PO BID PRN PRN For Diarrhea or Loose Stool (Reported) Lorazepam (Ativan) 1 Mg Tablet 1 MG PO HS PRN PRN For Insomnia Prescribed by: NATHAN PARK DO Ondansetron (Zofran) 4 Mg Tablet 4 MG PO TIDWM PRN PRN For Nausea (Reported) Temazepam (Temazepam) 7.5 Mg Capsule 7.5 MG PO HS PRN PRN For Insomnia Prescribed by: NATHAN PARK DO Tramadol (Tramadol) 50 Mg Tablet 100 MG PO TID PRN PRN For Pain (Reported) oxyCODONE (oxyCODONE) 5 Mg Capsule 5 MG PO Q4H PRN PRN For Pain Prescribed by: VARSHA LAYTON MD Followup Plan Disposition: Home with partner Follow-up plan Follow up in next week with Primary care physician. From there may receive re- referral to cardiology (ideally Dr Enrique at patient's preference) and with paint sprayer sandblaster for continued prescribing of medications for chronic pain. Discharge Diet: No restrictions Discharge Activity: No restrictions Follow-up Provider: Juan Uribe DO Follow-up with PCP in: 1 week Time spent 45 minutes copies to: [facility] Vital Signs Vital Sign - Last Date Time Temp Pulse Resp B/P Pulse Ox O2 Delivery O2 Flow Rate FiO2 11/14/16 13:57 36.4 76 22 138/68 92 Nasal Cannula 3.00 Intake and Output 11/13/16 11/13/16 11/14/16 Cumulative From/Thru 15:00 23:00 07:00 11/12/16 14:33 - 11/14/16 05:52 Intake Total 437 ml 711 ml 3421 ml Output Total 250 ml 1450 ml 2500 ml Balance 187 ml -739 ml 921 ml Intake Oral 437 ml 711 ml 2421 ml IV Total 1000 ml Output Urine Total 250 ml 1450 ml 2500 ml # Voids 1 3 # Bowel Movements 1 1 Lab and Diagnostics Result Diagram: 11/13/16 0155 11/13/16 0155 Juarez Hsu DO Nov 14, 2016 14:07
[2016-11-14] MEDS ORDERED: LORA-303 PO (14:38)
[2016-11-14] MEDS ORDERED: CARI350T PO (14:38)
[2016-11-14] MEDS ORDERED: OXYC5CAP4 PO (14:38)
[2016-11-14] MEDS ORDERED: TRAM50TA2 PO (14:38)
[2016-11-14] MEDS ORDERED: TEMA7.5C14 PO (14:38)
--- NOTE | 2016-11-14 14:43 | PCM.DIMED ---
Discharge Instructions Date of Service Nov 14, 2016 Dates of Hospitalization Nov 12, 2016 at 16:49 Discharge Diagnosis Discharge Diagnosis # Acute chest pain. NO evidence of acute coronary syndrome. # Chronic diastolic congestive heart failure, present on admission # Chronic respiratory failure # Asthma, present on admission. Stable. # Hyperlipidemia, present on admission. Stable. # Diabetes mellitus type II, non-insulin using, with neuropathy, present on admission. Stable. # Anxiety with panic attacks # Hypothyroidism, chronic, present on admission # Chronic pain with opiate habituation, present on admission. Stable. # GERD, present on admission. Stable. # Insomnia, present on admission. Stable. # Transgender Diet Discharge Diet: No restrictions Activity Discharge Activity: No restrictions Call your provider Call your provider for: Fever or Chills, Shortness of breath, Chest pain Patient Instructions Patient Instructions You were prescribed enough medications for pain and anxiety to last for approximately 2 weeks based on your use while in the hospital. Please use medications sparingly as possible and they may last longer. Continued prescribing with be at the discretion of your primary care physician, whomever you choose to continue to follow with. Follow-up plan Follow up in next week with Primary care physician. From there may receive re- referral to cardiology (ideally Dr Enrique at patient's preference) and with paint preparer for continued prescribing of medications for chronic pain. Follow-up Provider: Juan Uribe DO Follow-up with PCP in: 1 week Juarez Hsu DO Nov 14, 2016 14:43
--- NOTE | 2016-11-14 15:11 | NUR ---
Social Work-discharge: Data:EMR Reviewed. Pt is on day 2 of hospitalization for chest pain per H&P. Pt is medically stable for discharge. order received for PCP followup assistance, walker, and Resume HH. ALICE placed a call to [facility] and informed him of pt being in the hospital and informed him that pt is discharging home today, resume HH orders provided. SW confirmed with pt that he would like to use [facility] again for fww. SW called [facility] [phone] and faxed RX into [facility] [phone]. SW received confirmation that [facility] received RX and will call pt at home to schedule delivery. requested assistance with pt because pt is stating he is not getting [facility]. UR specialist spoke with [facility] who informed her that they do not contact with pt's insurance and pt will need to switch insurance policies and they have informed him of this information. [facility] did send request to pain clinic in [place], but they also do not contact with pt's insurance. SW explained to pt that he will need to switch his insurance through Medicaid. Pt states he has already done this and he should have Liu as of November 16. pt states he is going to work on getting new PCP and does not want help from ALICE. Pt will continue with home O2 and nebulizer through [facility] at home. Pt informed SW that his SO will provide transport home today. All updated and agreeable to plan. Assessment:Pt who would benefit from resume HH. Plan:Pt to discharge home today via POV. Resume HH orders provided to Roxanne ESTEVEZ for RN,PT, SEASONAL CUSTOMER SERVICE ASSOCIATE, and MINE SAFETY ENGINEER. ALICE faxed RX for Fww into [facility] they will contact pt at home and deliver. Pt already has 4ww for home use. Pt to continue with home O2. All updated and agreeable to plan. ADARSH Cantor
--- NOTE | 2016-11-14 15:42 | NUR ---
Discharge Went over discharge instructions and followup appointments. Pt had already removed intact IV. Pt left in wheelchair with family. No s/s of distress at time of dc
== END 2016-11-14 15:31 | disposition home health service (06) ==
LOC: SED 14:27 → MPC 16:49
PROVIDERS: ADMIT Internal Medicine; ATTEND Internal Medicine
DX: R07.9 Chest pain, unspecified (principal); I50.32 Chronic diastolic (congestive) heart failure; J96.10 Chronic respiratory failure, unspecified whether with hypoxia or hypercapnia; E11.40 Type 2 diabetes mellitus with diabetic neuropathy, unspecified; E66.2 Morbid (severe) obesity with alveolar hypoventilation; Z68.45 Body mass index [BMI] 70 or greater, adult; F11.20 Opioid dependence, uncomplicated; G89.29 Other chronic pain; F41.0 Panic disorder [episodic paroxysmal anxiety]; I10 Essential (primary) hypertension; I27.2 Other secondary pulmonary hypertension; Z99.81 Dependence on supplemental oxygen; J45.909 Unspecified asthma, uncomplicated; F32.9 Major depressive disorder, single episode, unspecified; E78.5 Hyperlipidemia, unspecified; E03.8 Other specified hypothyroidism; K21.9 Gastro-esophageal reflux disease without esophagitis; G47.00 Insomnia, unspecified; Z87.891 Personal history of nicotine dependence; Z79.51 Long term (current) use of inhaled steroids; Z79.84 Long term (current) use of oral hypoglycemic drugs; Z79.890 Hormone replacement therapy
CPT/HCPCS: 36415; 71010; 78452; 80048; 80053; 82550; 82553; 83735; 83880; 84439; 84443; 84484; 85025; 85027; 85610; 85730; 93005; 93017; 94664; 94799; 96361; 96372; 96374; 96376; 99285; A9502; C8924; G0378; J0280; J1170; J1650; J1815; J2060; J2785; J7620; Q9957